=== PATIENT | male | born 1980 | race Caucasian/White ===

== ENCOUNTER 2024-11-30 16:54 | Emergency (ER) | payer MEDICARE, MEDICAID, SELFPAY ==
[2024-11-30 16:57] VITALS: BP 148/103; PULSE 88; TEMP 36.6; O2SAT 97; BMI 55.9
--- NOTE | 2024-11-30 17:00 | XR_ITS ---
The [address] [address] Patient Name: ORACIO MARIE MRN: [id number] date: 1980 Sex: M Assigned Patient Location: ER Current Patient Location: Accession/Order Number: [id number] Exam Date: 11/30/2024 17:55 Report Date: 11/30/2024 18:53 At the request of: LETTY PARIKH Procedure: XR hand RT min 3V EXAM: XR hand RT min 3V, XR wrist RT min 3V HISTORY: pain to right hand and 4th digit COMPARISON: None. TECHNIQUE: 3 views of right hand and wrist FINDINGS: There is no acute fracture or dislocation. The soft tissue is unremarkable. XR/XR hand RT min 3V IMPRESSION: No acute fracture. Electronically authenticated by: EDWIN WILKES Date: 11/30/2024 18:53
--- NOTE | 2024-11-30 17:00 | XR_ITS ---
The [address] [address] Patient Name: ORACIO MARIE MRN: [id number] date: 1980 Sex: M Assigned Patient Location: ER Current Patient Location: Accession/Order Number: [id number] Exam Date: 11/30/2024 17:55 Report Date: 11/30/2024 18:53 At the request of: LETTY PARIKH Procedure: XR wrist RT min 3V EXAM: XR hand RT min 3V, XR wrist RT min 3V HISTORY: pain to right hand and 4th digit COMPARISON: None. TECHNIQUE: 3 views of right hand and wrist FINDINGS: There is no acute fracture or dislocation. The soft tissue is unremarkable. XR/XR wrist RT min 3V IMPRESSION: No acute fracture. Electronically authenticated by: EDWIN WILKES Date: 11/30/2024 18:53
--- NOTE | 2024-11-30 17:01 | ED_ITS ---
HPI HPI - Extremity Injury (Upper) General Chief Complaint: Extremity Injury, Upper Stated Complaint: UPPER EXTEMITY INJURY Time Seen by Provider: 11/30/24 16:54 Source: patient Mode of arrival: walk-in History of Present Illness HPI narrative: 44-year-old male presents to the ER with concerns of right hand and wrist pain. Patient states yesterday he was walking and slipped on ice dropping onto his right hand jamming his right ring finger and injuring his right wrist. He denies any prior injury to the wrist or hand and has remote scars on the dorsal aspect. Patient has been icing and taking Motrin with minimal to no relief. He denies any head or neck injury. Patient states he bumped his left elbow and ankle but it is not bothering him as much today and his main concern is the right wrist and hand. Patient is right-hand dominant. MD complaint: injury to: Reports right Other Extremity Injury: Right: fingers, hand and wrist Other injuries: Reports none Hand dominance: right Place: Reports home Severity: moderate Relieving factors: Reports none Exacerbating factors: Reports none Context: Reports fall Associated symptoms: Reports denies other symptoms Related Data Previous Rx's ?Medication ?Instructions ?Recorded ibuprofen 600 mg tablet 600 mg PO TID PRN pain #30 tabs 11/30/24 Allergies Allergy/AdvReac Type Severity Reaction Status Date / Time amoxicillin Allergy Severe Hives Verified 11/30/24 17:01 clindamycin Allergy Severe resp Verified 11/30/24 17:01 failure Opioid HPI Opioid Management Most Recent Pain and Opioid Data: No Data to Display Review of Systems ROS Constitutional Denies: fever or chills Eyes Denies: change in vision Ears, nose, mouth, and throat Denies: throat pain, neck pain or throat swelling Cardiovascular Denies: chest pain, palpitations or edema Respiratory Denies: shortness of breath or cough Gastrointestinal Denies: abdominal pain or nausea Musculoskeletal Reports: back pain (Chronic from many years ago per patient) and extremity pain (New onset right wrist and hand since fall yesterday) Integumentary/Breast Denies: rash or itching Neurological Denies: headache Psychiatric Denies: anxiety PFSH PFSH Social History Little interest or pleasure in doing things: not at all Feeling down, depressed, or hopeless: not at all Exam Narrative Exam Narrative: Nurse's notes and vital signs reviewed. Patient is not hypoxic. General: The patient appears well and in no apparent distress. Patient is resting comfortably on cart. Skin: Warm, dry, no pallor noted. Remote scars to the dorsal wrist from remote injury denies prior surgery Head: Normocephalic, atraumatic Eye: Normal conjunctiva Respiratory: Patient is in no distress Musculoskeletal: The right wrist shows no obvious deformity. There was minimal swelling noted by ulnar styloid. The patient had limited ROM due to pain. Involving the right wrist and the right middle finger no evidence of tendon disruption but limited motion seconda ry to pain patient demonstrates gentle flexion extension of the DIP PIP and MCP joint but is unable to close his hand into a fist The patient had tenderness noted distal radius and ring finger. The patient had no tenderness in the anatomical snuff box. The patient had no pain with axial loading of the thumb. Pulses are intact at brachial and radial 2+. There was no deficit at the elbow or shoulder. The patient has normal capillary refill to all distal digits. The patient has no evidence of cyanosis or mottling. The patient is able to flex and extend all digits without difficulty. No pain with syndesmotic compression of the forearm Neurological: A&O x4, normal sensory, normal motor Psychiatric: Cooperative Constitutional Vital Signs, click to edit/add: Last Vital Signs Temp 97.9 F 11/30/24 16:57 Pulse 88 11/30/24 16:57 Resp 11/30/24 16:57 BP 140/81 11/30/24 18:08 Pulse Ox 97 11/30/24 16:57 O2 Del Method Room Air 11/30/24 16:57 Course Vital Signs Vital signs: Vital Signs Temperature 97.9 F 11/30/24 16:57 Pulse Rate 88 11/30/24 16:57 Respiratory Rate 11/30/24 16:57 Blood Pressure 148/103 H 11/30/24 16:57 Pulse Oximetry 97 11/30/24 16:57 Oxygen Delivery Method Room Air 11/30/24 16:57 Temperature 97.9 F 11/30/24 16:57 Pulse Rate 88 11/30/24 16:57 Respiratory Rate 20 11/30/24 16:57 Blood Pressure 140/81 11/30/24 18:08 Pulse Oximetry 97 11/30/24 16:57 Oxygen Delivery Method Room Air 11/30/24 16:57 MDM - Extremity Injury (Upper) MDM Narrative Medical decision making narrative: Presents with right wrist hand and right ring finger injury status post fall yesterday ice pack applied on arrival no obvious deformity he appears in no significant distress he took Motrin prior to arrival is given a dose of Tylenol here awaiting x-ray studies.. 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 We have recommended a Velcro wrist brace ice and elevation Motrin for inflammation. Blood pressure was rechecked and improved. He is encouraged to follow-up with orthopedics given the arthritic changes in his wrist and injury concerning for wrist sprain and right ring finger sprain patient verbalized understanding The patient is to followup with primary care physician/ orthopedics in next 2-3 days or to return to the emergency department should any of the signs or symptoms worsen or new symptoms develop. Patient had questions answered. The patient agrees with the following Diagnosis and Treatment plan and the patient will be discharged home. Discharge Plan Discharge Chief Complaint: Extremity Injury, Upper Clinical Impression: Acute pain of right wrist, Right wrist sprain, Finger sprain Patient Disposition: Home, Self-Care Time of Disposition Decision: 18:06 Condition: Good Prescriptions / Home Meds: New ibuprofen 600 mg tablet 600 mg PO TID PRN (Reason: pain) Qty: 30 0RF Print Language: New Zealander Instructions: Jammed Finger (ED), Wrist Sprain (ED) Additional Instructions: Recommend Brace, remove to ice and shower. avoid lifting with Right hand Call Dr. Barfield Sunday for follow up. Referrals: Physician,Non-Staff, [Primary Care Provider] - 1 week Colin Barfield MD [Physician] - 1 week Procedures ED Ortho Splinting/Casting Orthopedic Splinting/Casting right wrist: Side: right Splint type: Splint arm short Upper extremity injury location: wrist (right velcro cock up splint) Upper extremity immobilizer: wrist splint Additional comments: neurovasc intact s/p application:
[2024-11-30] MEDS: ACETAMINOPHEN 500 MG TABLET 1000 MG PO (17:11)
[2024-11-30 18:08] VITALS: BP 140/81
== END 2024-11-30 18:15 | disposition home or self-care (01) ==
PROVIDERS: Emergency Provider Emergency Medicine; PCP Student in an Organized Health Care Education/Training Program
DX: S63.501A Unspecified sprain of right wrist, initial encounter (principal); S63.612A Unspecified sprain of right middle finger, initial encounter; W00.0XXA Fall on same level due to ice and snow, initial encounter; M25.531 Pain in right wrist
CPT/HCPCS: 29125; 73110; 73130; 99283

== ENCOUNTER 2025-04-20 17:32 | Emergency (ER) | payer MEDICARE, MEDICAID, SELFPAY ==
--- OUTSIDE RECORDS SUMMARY | 2025-04-20 17:39 | XMS_ITS | Encounter Summary ---
Author Organization [facility] tem Address [facility] [id number] [address] [place] [address] Care Team Providers Care Cdl Service Technician Name Role Phone Lori Toscano MD Primary Care Provider [phone] Encounter Details Date Type Department Care Team (Late st Contact Info) Description 12/17/2023 Telephone [facility] Family Medicine [address] [place] [phone] Allie Davis CMA Social History Tobacco Use Types Packs/Day Years Used Date Smoking Tobacco: Former Cigarettes Smokeless Tobacco: Current Chew Comments:Nicotine pouches Alcohol Use Standard Drinks/Week Comments Yes 0 (1 standard drink = 0.6 oz pur e alcohol) rarely Overall Financial Resource Strain (CARDIA) Answe r Date Recorded How hard is it for you to pa y for the very basics like food, housing, medical care, and heating? Somewhat hard 09/24/2023 PHQ-2 Answer Date Recorded Total Score 1 09/24/2023 PRAPARE - Transportation Answer Date Re corded In the past 12 months, has l ack of transportation kept you from medical appointments or from getting medications? Patient declined 09/24/2023 In the past 12 months, has l ack of transportation kept you from meetings, work, or from getting things needed for daily living? Patient declined 09/24/2023 Housing Instability Answer Date Recorde d Are you worried or concerned that in the next two months you may not have stable housing that you own, rent or stay in as a part of a household? No 09/24/2023 Childcare Answer Date Recorded Childcare Unknown 06/28/2020 Employment Answer Date Recorded Employment Unknown 06/28/2020 Hunger Screening Answer Date Recorded Within the past 12 months we worried whether our food would run out before we got money to buy more. Never True 12/08/2023 Within the past 12 months th e food we bought just didn't last and we didn't have money to get more. Never True 12/08/2023 Purpose - Life Answer Date Recorded Purpose and direction in life Unknown Sex and Gender Information Value Date Recorded Sex Assigned at Not on file Legal Sex Male 7:56 PM EDT Gender Identity Not on file Sexual Orientation Not on file documented as of this encounter Miscellaneous Notes * Telephone Encounter - Allie Davis CMA - 12/17/2023 3:28 PM [facility]. Original referral was written for PAULA only with history of asthma. Patient called into sleep and had told them that he was to see them for his asthma as well. new referral order be placed with diagnosis for PAULA and Asthma for patient if applicable. [facility]. Please advise * Telephone Encounter - Lori Toscano MD - 12/17/2023 3:28 PM EST Rx/order sent to pharmacy Please call and notify patient. Thanks, LORI TOSCANO MD 12/18/23 * Telephone Encounter - Allie Davis CMA - 12/17/2023 3:28 PM EST Patient was called and notified. At time of notification patient requested new order for his handicapped placard. Stated his is about to and pain management will not write a new one. Please advise. * Telephone Encounter - Lori Toscano MD - 12/17/2023 3:28 PM EST Rx/order placed Please call and notify patient. Thanks, LORI TOSCANO MD 12/20/23 * Telephone Encounter - Allie Davis CMA - 12/17/2023 3:28 PM EST Patient was called and notified and will chicken picker documented in this encounter Plan of Treatment Upcoming Encounters Date Type Department Care Team (Late st Contact Info) Description 06/24/2025 1:30 PM EDT Office Visit [facility] [address] [place] [id number] Julissa Macias, HOMICIDE INVESTIGATOR-SERVER ADMINISTRATOR [address] [facility], [place] [id number] documented as of this encounter Visit Diagnoses Not on filedocumented in this encounter Additional Health Concerns Assessment Noted Time PHQ-9 Depression Total Score: 1 09/24/20 23 1:34 PM EST documented as of this encounter Care Teams Cdl Service Technician Relationship Specialty Start Date End Date Lori Toscano MD [address] [address] PCP - General Internal Medicine 10/13/22 documented as of this encounter
--- OUTSIDE RECORDS SUMMARY | 2025-04-20 17:39 | XMS_ITS | Encounter Summary ---
[facility] tem Address [facility] [id number] [address] [place] [address] Care Team Providers Care Civil Drafting Technician Name Role Phone Lori Lyles MD Primary Care Provider [phone] Encounter Details Date Type Department Care Team (Late Contact Info) Description 03/16/2023 Telephone [facility] [address] [place] [phone] Lori Lyles MD [address] [facility] [address] [place], [place] [phone] Social History Tobacco Use Types Packs/Day Years Used Date Smoking Tobacco: Former Cigarettes Smokeless Tobacco: Current Chew Alcohol Use Standard Drinks/Week Comments Yes 0 (1 standard drink = 0.6 oz pur e alcohol) rarely PHQ-2 Answer Date Recorded Total Score 0 11/16/2022 Childcare Answer Date Recorded Childcare Unknown 06/28/2020 Employment Answer Date Recorded Employment Unknown 06/28/2020 Purpose - Life Answer Date Recorded Purpose and direction in life Unknown Sex and Gender Information Value Date Recorded Sex Assigned at Not on file Legal Sex Male 7:56 PM EDT Gender Identity Not on file Sexual Orientation Not on file documented as of this encounter Plan of Treatment Upcoming Encounters Date Type Department Care Team (Late st Contact Info) Description 06/24/2025 1:30 PM EDT Office Visit [facility] [address] [place] [phone] Julissa Macias, APPLICATOR SPRAYER-RUBBER THREAD SPOOLER [address] [facility], [address] [place] [address] documented as of this encounter Visit Diagnoses Not on filedocumented in this encounter Additional Health Concerns Assessment Noted Time PHQ-9 Depression Total Score: 0 11/16/19 23 10:12 AM EST documented as of this encounter Care Teams Civil Drafting Technician Relationship Specialty Start Date End Date Lori Lyles MD [address] [facility], [facility] [place] [address] PCP - General Internal Medicine 10/13/22 documented as of this encounter
--- OUTSIDE RECORDS SUMMARY | 2025-04-20 17:39 | XMS_ITS | Clinical Summary ---
Author Organization [facility] Address [address] [place] [address] Care Team Providers Care Chrome Worker Name Role Phone Jennifer Reaves CNP Primary Care Provider Emery Cook MD Unavailable [phone] Social History Tobacco Use Types Packs/Day Years Used Date Smoking Tobacco: Never Assessed Area Deprivation Index Answer Date Mansoor rded National Score (1-100), lower number is lower ri sk Not on file 07/01/2021 State Score (1-10), lower number is lower risk N ot on file 07/01/2021 Data from: https://www.neighborhoodatlas.medicine.[facility]/. Last address used for calculation Not on file 07/01/2021 Sex and Gender Information Value Date Recorded Sex Assigned at Not on file Legal Sex Male 8:07 AM EDT Gender Identity Not on file Sexual Orientation Not on file Last Filed Vital Signs Vital Sign Reading Time Taken Comments Blood Pressure - - Pulse - - Temperature - - Respiratory Rate - - Oxygen Saturation - - Inhaled Oxygen Concentration - - Weight 213.2 kg (470 lb) 02/09/2015 2:24 PM EDT Height 182.9 cm (6') 02/09/2015 2:24 PM EDT Body Mass Index 63.74 02/09/2015 2:24 PM EDT Plan of Treatment Health Maintenance Due Date Last Done Comments Anxiety Screening 1998 Depression Screening 1998 HIV Screening 1998 Hepatitis C Screening 1998 DTaP,Tdap,Td Vaccine (1 - Tdap) 1999 Hepatitis B Vaccine (1 of 3 - 19+ 3-dose series) 10/24 Lipid Screening 2015 Covid-19 Vaccine (2023-25 season) 2024 Influenza Vaccine (Season Ended) [address] [place] [address] MEDICARE MEDICAID [place] Care Teams Chrome Worker Relationship Specialty Start Date End Date Jennifer Reaves CNP PCP - General Family Medicine 01/30/15 Emery Cook MD [address] [place] [address] Referring Pain Management 06/02/21
--- OUTSIDE RECORDS SUMMARY | 2025-04-20 17:39 | XMS_ITS | Encounter Summary ---
Author Organization [facility] tem Address [facility] [id number] [address] [place] [address] Care Team Providers Care Back Padder Name Role Phone Lori Lyles MD Primary Care Provider [phone] Encounter Details Date Type Department Care Team (Late st Contact Info) Description 03/11/2025 Telephone [facility] [address] [place] [phone] Laurie Raya, [facility] Social History Tobacco Use Types Packs/Day Years [...] PHQ-2 Answer Date Recorded Total Score 1 02/24/2025 PRAPARE - Transportation Answer Date Re corded [...] got money to buy more. Never True 02/24/2025 Within the past 12 months th e food we bought just didn't last and we didn't have money to get more. Never True 02/24/2025 Purpose - Life Answer Date Recorded Purpose and direction in life Unknown Sex and Gender Information Value Date Recorded Sex Assigned at Not on file Legal Sex Male 7:56 PM EDT Gender Identity Not on file Sexual Orientation Not on file documented as of this encounter Miscellaneous Notes * Telephone Encounter - Laurie Raya CMA - 03/11/2025 11:45 AM EDT Patient is scheduled for appointment 06/24/25. CXR and PFT , please place new orders. documented in this encounter Plan of Treatment Upcoming Encounters Date Type Department Care Team (Late st Contact Info) Description 06/24/2025 1:30 PM EDT Office Visit [facility] [address] [place] [address] Julissa Macias, SUPPLIER ENGINEER-TIER LIFT OPERATOR [facility] [facility], [address] [place] [address] Scheduled Orders Name Type Priority Associated Diagnoses Orde r Schedule X-ray chest 2 views Imaging Routine Airway obstruction Expected: 04/15/2025, Expires: 03/11/2026 Pulmonary function test Spirometry (Flow Volume Loop) pre/post short acting bronchodilator w/ DLCO (diffusion study) PFT Routine Airway obstruction 1 Occurrences starting 03/11/2025 until 03/11/2026 documented as of this encounter Visit Diagnoses Diagnosis Airway obstruction- Primary Other diseases of respiratory system, not elsewhere classified documented in this encounter Additional Health Concerns Assessment Noted Time PHQ-9 Depression Total Score: 1 02/25/20 1:00 PM EDT documented as of this encounter Care Teams Back Padder Relationship Specialty Start Date End Date Lori Lyles MD [address] [place] [address] PCP - General Internal Medicine 10/13/22 documented as of this encounter
--- OUTSIDE RECORDS SUMMARY | 2025-04-20 17:39 | XMS_ITS | Encounter Summary ---
Author Organization [facility] tem Address [facility] [id number] [address] [place] [address] Care Team Providers Care Construction Craft Laborer Name Role Phone Lori Lyles MD Primary Care Provider [phone] Encounter Details Date Type Department Care Team (Late st Contact Info) Description 07/16/2024 Telephone [facility] Family Medicine [address] [place] [address] [place] [phone] Tanya Leiva CMA Social History Tobacco Use Types Packs/Day [...] encounter Miscellaneous Notes * Telephone Encounter - Tanya Leiva CMA - 07/16/2024 11:05 AM EDT Patient called into the office and stated that yesterday his symptoms started and tested positive for COVID he is having congestion and sore throat, he has used his inhaler more today than he has ever done just to protect his lungs. * Telephone Encounter - Deirdre Natarajan - 07/16/2024 11:05 AM EDT Patient called back a moment ago to let PCP know he is going to urgent care documented in this encounter Plan of Treatment Upcoming Encounters Date Type Department Care Team (Late st Contact Info) Description 06/24/2025 1:30 PM EDT Office Visit [facility] [address] [facility] [place] [address] Julissa Macias, BOILERS [employer] PRESSURE VESSELS INSPECTOR-ATOMIC PHYSICS TEACHER [address] [facility], [address] [place] [address] documented as of this encounter Visit Diagnoses Not on filedocumented in this encounter Additional Health Concerns Assessment Noted Time PHQ-9 Depression Total Score: 1 09/24/20 23 1:34 PM EST documented as of this encounter Care Teams Construction Craft Laborer Relationship Specialty Start Date End Date Lori Lyles MD [address] [place] [address] PCP - General Internal Medicine 10/13/22 documented as of this encounter
--- OUTSIDE RECORDS SUMMARY | 2025-04-20 17:39 | XMS_ITS | Patient Health Record ---
Author Organization [facility] es Address [address] [place] [address] Care Team Providers Care Instructional Technologist Name Role Phone Doyle Melo Primary Care Provider [phone] Allergies Allergen (clinical drug ingredient) Drug/Non Drug Allergy documented on EMR Reaction Allergy Type Onset Date Status amoxicillin Amoxicillin HIVES Drug Allergy Act shira clindamycin Clindamycin HCl Unknown Drug Allergy Active Reason For Referral No Information Medications Medication SIG (Take, Route, Frequency, Duration) Notes Start Date End Date Status Omeprazole 40 MG 1 capsule Orally Once a day for 30 day(s) 05/07/2015 Active FLUoxetine HCl 20 MG 1 capsule in the morning Orally Once a day for 30 day(s) 08/01/2017 Active Symbicort 160-4.5 MCG/ACT 2 puffs Inhalation Twice a day Not-Taking Flonase 50 MCG/ACT 1 spray Nasally Once a day for 30 day(s) 01/16/2011 Not-Taking Ipratropium [place] 0.02 % Inhalation Active Xanax 0.5 MG 1 tablet Orally Twice a day Active Requip 1 MG 1 tablet 1 to 3 hours before bedtime Orally Once a day Active dulera 100/5 2 puff INH twice a day 02/28/17 takes 1 puff four times a day Active Singulair 10 MG 1 tablet in the evening Orally Once a day for 30 day(s) Active Albuterol Sulfate HFA Inhalation Active Lisinopril 10 MG take 1 tablet by mouth once daily for 30 Active Problems Problem Type SNOMED Code ICD Code Onset Dates Problem Status W/U Status Risk Notes Problem Morbid obesity (204965998) Morbid obesity (278.01) Active confirmed Problem Allergic rhinitis (61369782) Allergic rhinitis, cause unspecified (477.9) Active confirmed Problem Esophageal reflux (095068880) Esophageal reflux (530.81) Active confirmed Problem Primary localized osteoarthrosis of ankle AND/OR foot (091844287) Primary localized osteoarthrosis, lower leg (715.16) Active confirmed Problem Injury of lower extremity (036755946) Injury, other and unspecified, knee, leg, ankle, and foot (959.7) Active confirmed Problem Morbid obesity (572593623) Morbid (severe) obesity due to excess calories (E66.01) Active confirmed Problem 80093261 HTN (hypertension) (I10) Active confirmed Plan Of Treatment No Information Insurance Providers Payer Name Payer Address Payer Phone Subscriber Number Group Number Insured Name Patient Relationship to Insured Coverage Start Date Coverage End Date z[employer] -termed [address] [place] [address] [id number] ORACIO MARIE Self - patient is the insured zMEDICAID [employer] after [employer]- termed 22 [address] [place] [address] [id number] ORACIO MARIE Self - patient is the insured Medical (General) History Medical History History ICD Code ASTHMA TOBACCO ABUSE OBESITY CHRONIC BACK PAIN PAULA/BIPAP resp.faure
--- OUTSIDE RECORDS SUMMARY | 2025-04-20 17:39 | XMS_ITS | Clinical Summary ---
Author Organization [facility] Address [address] [place] [address] Care Team Providers Care Barrel Lapper Name Role Phone Unavailable Primary Care Provider Unavailabl e Social History Tobacco Use Types Packs/Day Years Used Date Smoking Tobacco: Never Assessed Sex and Gender Information Value Date Recorded Sex Assigned at Not on file Legal Sex Male 9:35 PM EDT Gender Identity Not on file Sexual Orientation Not on file Last Filed Vital Signs Vital Sign Reading Time Taken Comments Blood Pressure 148/79 05/18/2022 12:00 PM EDT Pulse - - Temperature - - Respiratory Rate - - Oxygen Saturation - - Inhaled Oxygen Concentration - - Weight 235 kg (517 lb) 05/18/2022 12:00 PM EDT Height 177.8 cm (5' 10 ) 05/18/2022 12:00 PM EDT Body Mass Index 74.18 05/18/2022 12:00 PM EDT Plan of Treatment Health Maintenance Due Date Last Done Comments Influenza Vaccine (Season Ended) 2025 Insurance MEDICARE
--- OUTSIDE RECORDS SUMMARY | 2025-04-20 17:40 | XMS_ITS | Clinical Summary ---
Author Organization [facility] tem Address [id number] [address] [place] [address] Care Team Providers Care Ramp Supervisor Name Role Phone Lori Lyles MD Primary Care Provider [phone] Allergies Active Allergy Reactions Criticality Noted Date Comments Amoxicillin Hives 06/28/2020 Clindamycin Anaphylaxis High 06/28/2020 Penicillins Hives 06/28/2020 Medications albuterol (ACCUNEB) 1.25 mg/3 mL nebulizer solution Inhale 3 mL (1.25 mg total) by nebulization every 6 (six) hours as needed for wheezing. Active cetirizine (ZyrTEC) 10 mg tablet Take 1 tablet (10 mg total) by mouth in the morning. Active pen needle, diabetic 32 gauge x needleIndication s:Type 2 diabetes mellitus with other specified complication, without long-term current use of insulin ([facility]) 1 each by miscellaneous route once a week. 10 each 2 023 Active pen needle, diabetic 32 gauge x 5/16 needleIndication s:Controlled type 2 diabetes mellitus without complication, without long-term current use of insulin ([facility]) Use once per week with wegovy injection 10 each 2 023 Active ipratropium (ATROVENT) 0.02 % nebulizer solution 4 (four) times a day. 023 Active pregabalin (LYRICA) 75 mg capsuleIndicatio ns:Lumbar spondylosis Take 1 capsule (75 mg total) by mouth in the morning and 1 capsule (75 mg total) before bedtime. 60 capsule 1 023 Active flash glucose sensor (FREESTYLE TAJ 2 SENSOR) kitIndications:T ype 2 diabetes mellitus with other specified complication, without long-term current use of insulin ([facility]) Replace every 2 weeks 2 kit 11 023 Active flash glucose scanning reader (FREESTYLE TAJ 2 READER) miscIndications: Type 2 diabetes mellitus with other specified complication, without long-term current use of insulin ([facility]) Check sugar every 8 hours, use with sensor. 1 each 023 Active ondansetron ODT (ZOFRAN ODT) 4 mg disintegrating tabletIndication s:Nausea DISSOLVE 1 TABLET ON THE TONGUE EVERY 8 HOURS NEEDED FOR NAUSEA OR VOMITING 20 tablet 024 Active topiramate (TOPAMAX) 50 mg tabletIndication s:BMI 60.0-69.9, adult ([facility]) TAKE 1 TABLET BY MOUTH IN THE MORNING AND 1 TABLET BY MOUTH BEFORE BEDTIME 200 tablet 2 024 Active nystatin (NYSTOP) powderIndication s:Candidal dermatitis Apply topically 2 (two) times a day. 60 g 1 024 Active atorvastatin (LIPITOR) 40 mg tabletIndication s:ASCVD (arterioscleroti c cardiovascular disease) TAKE 1 TABLET BY MOUTH IN THE MORNING 100 tablet 2 024 Active JANUVIA 50 mg tabletIndication s:Controlled type 2 diabetes mellitus without complication, without long-term current use of insulin ([facility]) TAKE 1 TABLET BY MOUTH ONCE DAILY 100 tablet 2 024 Active lisinopriL (PRINIVIL,ZESTRI L) 20 mg tabletIndication s:Type 2 diabetes mellitus with other specified complication, without long-term current use of insulin ([facility]),Second pee hypertension TAKE 1 TABLET BY MOUTH IN THE MORNING FOR KIDNEY DISEASE FROM DIABETES 100 tablet 2 024 Active OZEMPIC 1 mg/dose (4 mg/3 mL) pen injector INJECT SUBCUTANEOUSLY 1 MG EVERY WEEK 9 mL 3 025 Active ibuprofen (MOTRIN) 800 mg tablet Take 1 tablet (800 mg total) by mouth 3 (three) times a day. 21 tablet 025 Active acetaminophen (TYLENOL EXTRA STRENGTH) 500 mg tablet Take 1 tablet (500 mg total) by mouth every 6 (six) hours as needed for pain. 30 tablet 025 Active cyclobenzaprine (FLEXERIL) 10 mg tablet Take 1 tablet (10 mg total) by mouth 2 (two) times a day as needed for muscle spasms. 10 tablet 025 Active fluticasone propion-salmeter oL (ADVAIR) 500-50 mcg/dose DISKUS INHALE 1 INHALATION BY MOUTH IN THE MORNING AND 1 INHALATION BY MOUTH BEFORE BEDTIME 180 each 3 025 Active semaglutide (OZEMPIC) 2 mg/dose (8 mg/3 mL) pen injectorIndicati ons:Type 2 diabetes mellitus with other specified complication, without long-term current use of insulin ([facility]),Obesit y, morbid, BMI 50 or higher ([facility]),PAULA (obstructive sleep apnea) Inject 2 mg under the skin every 7 days. 3 mL 10 025 Active blood-glucose sensor (FREESTYLE TAJ 3 SENSOR) deviceIndication s:Type 2 diabetes mellitus with other specified complication, without long-term current use of insulin ([facility]) REPLACE EVERY 14 DAYS 5 each 5 025 Active predniSONE (DELTASONE) 20 mg tabletIndication s:Moderate persistent reactive airway disease with acute exacerbation 3 daily for 3 days then 2 daily for 3 days then 1 daily for 3 days 18 tablet 025 Active mometasone (ASMANEX) 220 mcg/ actuation (30) aerosol powdr breath activated Inhale 1 puff in the morning and 1 puff before bedtime. 1 each 11 025 Active triamcinolone (KENALOG) 0.1 % cream Apply 1 Application topically in the morning and 1 Application before bedtime. 60 g 1 025 Active albuterol (PROVENTIL HFA;VENTOLIN HFA) 90 mcg/actuation inhalerIndicatio ns:Moderate persistent reactive airway disease with acute exacerbation USE 2 INHALATIONS BY MOUTH EVERY 6 HOURS NEEDED FOR WHEEZING 34 g 2 025 Active albuterol (PROVENTIL HFA;VENTOLIN HFA) 90 mcg/actuation inhalerIndicatio ns:Moderate persistent reactive airway disease with acute exacerbation Inhale 2 puffs every 6 (six) hours as needed for wheezing. 25.5 g 11 024 2024 Discontinued triamcinolone (KENALOG) 0.1 % cream Apply 1 Application topically in the morning and 1 Application before bedtime. 60 g 1 024 2024 Discontinued(R eorder) Active Problems Problem Noted Date Diagnosed Date Type 2 diabetes mellitus wit h other specified complication, without long-term current use of insulin 02/24/2025 Lumbar spondylosis 07/11/2023 Disorder of sacrum 07/11/2023 BMI 50.0-59.9, adult 03/13/2023 Controlled type 2 diabetes m ellitus without complication, without long-term current use of insulin 01/16/2023 Pain in wrist 01/16/2023 Encounters Date Type Department Care Team Description 04/18/2025 Refill [facility] [address] [phone] Julissa Macias, GALLEY HAND-GROCERY SACKER Moderate persistent reactive airway disease with acute exacerbation 04/13/2025 Orders Only [facility] [address] [phone] Lori Lyles MD 04/07/2025 Telephone [facility] [address] [place] [phone] Ruth Reina CNA Medication 03/19/2025 Orders Only [facility] [address] [phone] Lori Lyles MD Moderate persistent reactive airway disease with acute exacerbation 03/16/2025 Telephone [facility] [address] [phone] Ruth Reina CNA 03/13/2025 11:30 AM EDT Telemedicine [facility] [address] [place] [phone] Lori Lyles MD Moderate persistent reactive airway disease with acute exacerbation (Primary Dx); PAULA (obstructive sleep apnea); Moderate persistent asthma with exacerbation 03/13/2025 Travel 03/11/2025 Telephone [facility] [address] [place] [address] Lori Lyles MD 03/11/2025 Orders Only [facility] [address] [place] [phone] Tomas Lockwood, DO 03/11/2025 Telephone [facility] [address] [place] [phone] Laurie Raya, [facility] 03/10/2025 Telephone [facility] [address] [place] [address] Ruth Reina, FLOOR FINISHER 02/27/2025 Telephone [facility] [address] [place] [address] [place] [address] Shazia Persaud, [facility] 02/24/2025 2:00 PM EDT Office Visit [facility] [address] [place] [address] [place] [address] Lori Lyles MD Type 2 diabetes mellitus with other specified complication, without long-term current use of insulin ([facility]) (Primary Dx); Obesity, morbid, BMI 50 or higher ([facility]); PAULA (obstructive sleep apnea); Controlled type 2 diabetes mellitus without complication, without long-term current use of insulin ([facility]) 02/24/2025 Travel from Last 3 Months Immunizations Immunization Administration Dates Next Due COVID-19, mRNA, LNP-S, PF, 30mcg/0.3mL Dose 03/13,03/12/2021 Influenza (IM) Preservative Free 11/27/2018 Influenza, Injectable, Quadrivalent 12/09/2019 Influenza, Injectable, quadrivalent (PF) 023,01/16/2023 Tdap 12/09/2019 Family History Medical History Relation Name Comments Alcohol abuse Father Cirrhosis Father Liver disease Father Pulmonary embolism Father Arthritis Maternal Aunt Alcohol abuse Maternal Grandmother Arthritis Maternal Grandmother Heart attack Maternal Grandmother Heart disease Maternal Grandmother [place]'s disease Maternal Grandmother Arthritis Maternal Uncle Alcohol abuse Mother Asthma Mother Diabetes Paternal Grandfather Asthma Son Bipolar disorder Son Relation Name Status Comments Father Maternal Aunt Maternal Grandmother Maternal Uncle Mother Paternal Grandfather Son Social History Tobacco Use Types Packs/Day Years [...] Sign Reading Time Taken Comments Blood Pressure 142/88 02/24/2025 2:13 PM EDT Pulse 94 02/24/2025 2:13 PM EDT Temperature 37 C (98.6 F) 02/24/2025 2:13 PM EDT Respiratory Rate 20 12/09/2024 10:3 3 PM EST Oxygen Saturation 98% 02/24/2025 2:13 PM EDT Inhaled Oxygen Concentration - - Weight 201.7 kg (444 lb 9.6 oz) 02/24/2025 2:13 PM EDT Height 182.9 cm (6') 02/24/2025 2:13 PM EDT Body Mass Index 60.3 02/24/2025 2:13 PM EDT Plan of Treatment Upcoming Encounters Date Type Department Care Team (Late st Contact Info) Description 06/24/2025 1:30 PM EDT Office Visit [facility] [address] [place] [phone] Julissa Macias, GALLEY HAND-GROCERY SACKER [address] [facility], [address] [place] [id number] Health Maintenance Due Date Last Done Comments Diabetic Ophthalmology Exam 1980 Tobacco Counseling 1980 Adult BMI Follow Up Plan 1998 Diabetic Foot Exam 1998 COVID-19 Vaccine (2023-2 5 season) 2024 04/02/2021, 03/12/2021 Influenza Vaccine 07/13/2025 08/21/2023, , 12/09/2019, Additional history exists Adult BMI Screening 02/24/2026 02/24/2025 Depression Screening 02/24/2026 02/24/2025 Tobacco Screening 03/13/2026 03/13/2025 DTaP,Tdap and Td Vaccines (2 - Td or Tdap) 12/09/2029 12/09/2019 Medical Devices Not on file Insurance MEDICAID [place] [employer] MEDICARE Care Teams Ramp Supervisor Relationship Specialty Start Date End Date Lori Lyles MD [address] [facility] [place] [address] PCP - General Internal Medicine 10/13/22
--- OUTSIDE RECORDS SUMMARY | 2025-04-20 17:40 | XMS_ITS | Encounter Summary ---
Author Organization [facility] tem Address [id number] [address] [place] [address] Care Team Providers Care Slate Mixer Name Role Phone Lori Lyles MD Primary Care Provider [phone] Encounter Details Date Type Department Care Team (Late st Contact Info) Description 06/08/2023 Telephone [facility] [address] [place] [address] [phone] Tanya Leiva CMA Social History Tobacco Use [...] Telephone Encounter - Tanya Leiva CMA - 06/08/2023 12:37 PM EDT Tried to call patient need to schedule for medicare annual wellness documented in this encounter Plan of Treatment Upcoming Encounters Date Type Department Care Team (Late st Contact Info) Description 06/24/2025 1:30 PM EDT Office Visit [facility] [address] [place] [phone] Julissa Macias, SILK OPENER-GOODYEAR STITCHER [address] [place] [address], [address] [place] [address] documented as of this encounter Visit Diagnoses Not on filedocumented in this encounter Additional Health Concerns Assessment Noted Time PHQ-9 Depression Total Score: 0 11/16/19 23 10:12 AM EST documented as of this encounter Care Teams Slate Mixer Relationship Specialty Start Date End Date Lori Lyles MD [address], [place] [phone] PCP - General Internal Medicine 10/13/22 documented as of this encounter
--- OUTSIDE RECORDS SUMMARY | 2025-04-20 17:40 | XMS_ITS | Encounter Summary ---
Author Organization [facility] tem Address [id number] [address] [place] [address] Care Team Providers Care Motion Picture Operator Name Role Phone Lori Toscano MD Primary Care Provider [phone] Encounter Details Date Type Department Care Team (Late st Contact Info) Description 03/16/2025 [facility] [address] [place] [address] [place] [phone] Ruth Reina CNA Social History Tobacco Use Types Packs/Day Years [...] encounter Miscellaneous Notes * Telephone Encounter - Ruth Reina CNA - 03/16/2025 1:40 PM EDT [facility]er was only for 14 doses would last 7 days. Pharmacy cannot order it. Pharmacy wants to change it to 60 dose inhaler to last 30 days. Please advise * Telephone Encounter - Lori Toscano MD - 03/16/2025 1:40 PM EDT Order/Rx placed. Please call and notify patient. Thanks, LORI TOSCANO MD 03/19/25 documented in this encounter Plan of Treatment Upcoming Encounters Date Type Department Care Team (Late st Contact Info) Description 06/24/2025 1:30 PM EDT Office Visit [facility] [address] [place] [address] Julissa Macias, LITHOGRAPH PRESS FEEDER-LEAD LOADER [address] [facility], [address] [place] [address] documented as of this encounter Visit Diagnoses Not on filedocumented in this encounter Additional Health Concerns Assessment Noted Time PHQ-9 Depression Total Score: 1 02/25/20 25 1:00 PM EDT documented as of this encounter Care Teams Motion Picture Operator Relationship Specialty Start Date End Date Lori Toscano MD [address] [facility] [place] [address] PCP - General Internal Medicine 10/13/22 documented as of this encounter
--- OUTSIDE RECORDS SUMMARY | 2025-04-20 17:40 | XMS_ITS | Encounter Summary ---
Author Organization [facility] tem Address [id number] [address] [place] [address] Care Team Providers Care Foam Tank Laminator Name Role Phone Lori Lyles MD Primary Care Provider [phone] Reason for Visit * Reason Comments Med Refill Encounter Details Date Type Department Care Team (Late st Contact Info) Description 04/18/2025 Refill [facility] [address] [phone] Julissa Macias, INDUSTRIAL HEALTH ENGINEER-MEDICAL DRIVER [address] [address] Moderate persistent reactive airway disease with acute exacerbation Social History Tobacco Use Types Packs/Day Years [...] Office Visit [facility] [address] [address] Julissa Macias, INDUSTRIAL HEALTH ENGINEER-MEDICAL DRIVER [address] [place] [address], [place] [address] documented as of this encounter Visit Diagnoses Diagnosis Moderate persistent reactive airway disease with acute exacerbation documented in this encounter Additional Health Concerns Assessment Noted Time PHQ-9 Depression Total Score: 1 02/25/20 25 1:00 PM EDT documented as of this encounter Care Teams Foam Tank Laminator Relationship Specialty Start Date End Date Lori Lyles MD [address] [place] [address] PCP - General Internal Medicine 10/13/22 documented as of this encounter
--- OUTSIDE RECORDS SUMMARY | 2025-04-20 17:40 | XMS_ITS | Encounter Summary ---
Author Organization [facility] tem Address [id number] [address] [place] [address] Care Team Providers Care Promotions Executive Name Role Phone Lori Lyles MD Primary Care Provider [phone] Encounter Details Date Type Department Care Team (Late st Contact Info) Description 04/13/2025 Orders Only [facility] [address] [place] [address] [phone] Lori Lyles MD [address] [facility] [address] [place], [place] [phone] Social History Tobacco Use Types Packs/Day Years [...] Office Visit [facility] [address] [place] [address] Julissa Macias, CERTIFIED MARINE MECHANIC-STEEL FITTER [address] [place] [address], [address] [place] [phone] documented as of this encounter Visit Diagnoses Not on filedocumented in this encounter Additional Health Concerns Assessment Noted Time PHQ-9 Depression Total Score: 1 02/25/20 25 1:00 PM EDT documented as of this encounter Care Teams Promotions Executive Relationship Specialty Start Date End Date Lori Lyles MD [address] [place] [address] PCP - General Internal Medicine 10/13/22 documented as of this encounter
--- OUTSIDE RECORDS SUMMARY | 2025-04-20 17:40 | XMS_ITS | Encounter Summary ---
Author Organization [facility] tem Address [id number] [address] [place] [address] Care Team Providers Care Textile Colorist Dyer Name Role Phone Lori Toscano MD Primary Care Provider [phone] Reason for Visit * Reason Onset Date Comments Medication 04/07/2025 Encounter Details Date Type Department Care Team (Late st Contact Info) Description 04/07/2025 Telephone [facility] [address] [place] [address] [place] [phone] Ruth Reina CNA Medication Social History Tobacco Use Types Packs/Day Years [...] Telephone Encounter - Ruth Reina CNA - 04/07/2025 1:47 PM EDT Patient called office stating that he bought stickers like a bandage to place over his alem sensor. Patients states his arm almost has a rash and if you could all in some cream for patient. Patient states you had called it in for him before about this. Please advise * Telephone Encounter - Lori Toscano MD - 04/07/2025 1:47 PM EDT Order/Rx placed. For kenalog cream. Please call and notify patient. Thanks, LORI TOSCANO MD 04/13/25 * Telephone Encounter - Smitha Bloom CMA - 04/07/2025 1:47 PM EDT Called and informed patient. He stated understanding. documented in this encounter Plan of Treatment Upcoming Encounters Date Type Department Care Team (Late st Contact Info) Description 06/24/2025 1:30 PM EDT Office Visit [facility] [address] [place] [address] Julissa Macias, TREE WARDEN-BUFFET SERVER [address] [facility], [address] [place] [address] documented as of this encounter Visit Diagnoses Not on filedocumented in this encounter Additional Health Concerns Assessment Noted Time PHQ-9 Depression Total Score: 1 02/25/20 25 1:00 PM EDT documented as of this encounter Care Teams Textile Colorist Dyer Relationship Specialty Start Date End Date Lori Toscano MD [address] [facility] [place] [address] PCP - General Internal Medicine 10/13/22 documented as of this encounter
--- OUTSIDE RECORDS SUMMARY | 2025-04-20 17:40 | XMS_ITS | Encounter Summary ---
Author Organization [facility] tem Address [id number] [address] [place] [address] Care Team Providers Care Mitigation Supervisor Name Role Phone Lori Lyles MD Primary Care Provider [phone] Encounter Details Date Type Department Care Team (Late st Contact Info) Description 11/01/2023 Telephone [facility] [address] [place] [address] [phone] Allie Davis CMA Social History Tobacco Use [...] before we got money to buy more. Sometimes True 023 Within the past 12 months th e food we bought just didn't last and we didn't have money to get more. Sometimes True 09/24/2023 Purpose - Life Answer Date Recorded Purpose and direction in life Unknown Sex and Gender Information Value Date Recorded Sex Assigned at Not on file Legal Sex Male 7:56 PM EDT Gender Identity Not on file Sexual Orientation Not on file documented as of this encounter Miscellaneous Notes * Telephone Encounter - Allie Davis CMA - 11/01/2023 1:54 PM EST Patient is requesting inhaler refill (not in current medications) many are in the historical meds. Patient stated that any of the Pro Airs work the best. Please send to [facility] in [facility] * Telephone Encounter - Lori Lyles MD - 11/01/2023 1:54 PM EST No action needed, Thanks documented in this encounter Plan of Treatment Upcoming Encounters Date Type Department Care Team (Late st Contact Info) Description 06/24/2025 1:30 PM EDT Office Visit [facility] [address] [facility] [place] [address] Julissa Macias, ENGLISH AND READING INSTRUCTOR-GROUND CREWMAN AIRCRAFT SUPPORT [address] [facility], [address] [place] [address] documented as of this encounter Visit Diagnoses Not on filedocumented in this encounter Additional Health Concerns Assessment Noted Time PHQ-9 Depression Total Score: 1 09/24/20 23 1:34 PM EST documented as of this encounter Care Teams Mitigation Supervisor Relationship Specialty Start Date End Date Lori Lyels MD [address] [place] [address] PCP - General Internal Medicine 10/13/22 documented as of this encounter
--- OUTSIDE RECORDS SUMMARY | 2025-04-20 17:40 | XMS_ITS | Encounter Summary ---
Author Organization [facility] tem Address [id number] [address] [place] [address] Care Team Providers Care Svp Name Role Phone Lori Toscano MD Primary Care Provider [phone] Encounter Details Date Type Department Care Team (Late st Contact Info) Description 06/13/2023 Telephone [facility] Family Medicine [address] [place] [address] [place] [id number] Allie Davis CMA Social History Tobacco Use [...] Telephone Encounter - Allie Davis CMA - 06/13/2023 1:27 PM EDT Patient called into office requesting prednisone because the heat is bothering him. Stated he is having a hard time breathing. Also stated he doesn't see pulmonology until next month. * Telephone Encounter - Lori Toscano MD - 06/13/2023 1:27 PM EDT Patient should set up an appointment to further evaluate. Phone call or video appointment would be best, thanks. Thanks, LORI TOSCANO MD 06/13/23 * Telephone Encounter - Allie Davis CMA - 06/13/2023 1:27 PM EDT Patient was attempted to be contacted to set up appointment, no answer and unable to lvm documented in this encounter Plan of Treatment Upcoming Encounters Date Type Department Care Team (Late st Contact Info) Description 06/24/2025 1:30 PM EDT Office Visit [facility] Pul[facility]Sleep [facility] [address] [place] [address] Julissa Macias, WILDLIFE AND GAME PROTECTOR-FINANCIAL SALES REPRESENTATIVE [address] [place] [address], [address] [place] [address] documented as of this encounter Visit Diagnoses Not on filedocumented in this encounter Additional Health Concerns Assessment Noted Time PHQ-9 Depression Total Score: 0 11/16/19 23 10:12 AM EST documented as of this encounter Care Teams Svp Relationship Specialty Start Date End Date Lori Toscano MD [address] [place] [address] PCP - General Internal Medicine 10/13/22 documented as of this encounter
--- OUTSIDE RECORDS SUMMARY | 2025-04-20 17:40 | XMS_ITS | Encounter Summary ---
Author Organization [facility] [employer] [facility] tem Address [id number] [address] [place] [address] Care Team Providers Care Cloth Bleaching Range Back Tender Name Role Phone Lori Toscano MD Primary Care Provider [phone] Encounter Details Date Type Department Care Team (Late st Contact Info) Description 06/20/2023 [facility]phone [facility] [address] [place] [phone] Lori Toscano MD [address] [facility] [address] [place], [place] [id number] Social History Tobacco Use Types Packs/Day Years [...] encounter Miscellaneous Notes * Telephone Encounter - Yamile Curiel - 06/20/2023 2:00 PM EDT WROTE A PRESCRIPTION FOR [facility] BUT HE SAID THAT HIS INSURANCE, BUT THEY WILL FOR OZEMPIC BUT THEREIS A SHORTAGE AND HE CAN'T GET IT. PLEASE ADVISED * Telephone Encounter - Lori Toscano MD - 06/20/2023 2:00 PM EDT Do we have any ozempic samples we could share? Of atleast 1mg doses. If not, theres not many other options.... Patient should call around to near by pharmacies and ask if they have ozempic 1mg in stock, I'm happy to send a script to anywhere its available Thanks, LORI TOSCANO MD 06/20/23 documented in this encounter Plan of Treatment Upcoming Encounters Date Type Department Care Team (Late st Contact Info) Description 06/24/2025 1:30 PM EDT Office Visit [facility]Sleep [facility] [address] [place] [address] Julissa Macias, TISSUE REWINDER-CONSULTING IT ARCHITECT [address] [facility], [address] [place] [id number] documented as of this encounter Visit Diagnoses Not on filedocumented in this encounter Additional Health Concerns Assessment Noted Time PHQ-9 Depression Total Score: 0 11/16/19 23 10:12 AM EST documented as of this encounter Care Teams Cloth Bleaching Range Back Tender Relationship Specialty Start Date End Date Lori Toscano MD [address] [facility] [place] [address] PCP - General Internal Medicine 10/13/22 documented as of this encounter
[2025-04-20 17:44] VITALS: BP 160/95; PULSE 92; TEMP 36.5; O2SAT 97; BMI 54.2
[2025-04-20] MEDS: KETOROLAC TROMETHAMINE 60 MG/2 ML VIAL IM (18:05)
--- NOTE | 2025-04-20 18:47 | ED_ITS ---
Documented by User: Daxa Edward 04/20/25 18:51 HPI HPI - General Adult General Chief complaint: Extremity Injury, Lower Stated complaint: lower extremity problem Time Seen by Provider: 04/20/25 17:39 Source: patient and family Mode of arrival: walk-in Limitations: no limitations History of Present Illness HPI narrative: 44-year-old male presented here to the emergency room chief complaint of right knee pain. He states he was walking in his yard 2 days ago and his knee is buckled . Patient sees pain management for his knees. He has not followed up with them for this recent fall. He is here today for increased knee pain states it is throbbing. No acute deformity. Related Data Previous Rx's ?Medication ?Instructions ?Recorded ibuprofen 600 mg tablet 600 mg PO TID PRN pain #30 t abs 11/30/24 Allergies Allergy/AdvReac Type Severity Reaction Status Date / Time amoxicillin Allergy Severe Hives Verified 04/20/25 17:47 clindamycin Allergy Severe resp Verified 04/20/25 17:47 failure Opioid HPI Opioid Management Most Recent Opioid Data: Last Pain Scale 7 Today, 18:05 Last JAN Pain Assessment Today, 18:05 Review of Systems ROS Status of ROS 10 or more systems reviewed and unremark able except as noted in history and below PFSH PFSH Social History Little interest or pleasure in doing things: not at all Feeling down, depressed, or hopeless: not at all Exam Narrative Exam Narrative: All Systems are negative except as noted/marked.All systems reviewed and otherwise negative Nurses note and vital signs reviewed and patient is not hypoxic. General: The patient appears well and in no apparent distress. Patient is resting comfortably on cart. Skin: Warm, dry, no pallor noted. There is no rash noted. Head: Normocephalic, atraumatic Cardiovascular: Regular Rate and Rhythm Respiratory: Patient is in no distress, no accessory muscle use, lungs are clear to auscultation, no wheezing, rales or rhonchi Back: non-tender, no CVA tenderness bilaterally to percussion. GI: obese, large pannus, Normal bowel sounds, no tenderness to palpation, no masses appreciated. No rebound, guarding, or rigidity noted. Musculoskeletal:right knee pain, no acute pain or deformitym The patient has no evidence of calf tenderness, no pitting edema, symmetrical pulses noted bilaterally Neurological: A&O x4, normal speech Psychiatric: Cooperative Constitutional Vital Signs, click to edit/add: Last Vital Signs Temp 97.7 F 04/20/25 17:44 Pulse 92 H 04/20/25 17:44 Resp 18 04/20/25 17:44 BP 160/95 H 04/20/25 17:44 Pulse Ox 97 04/20/25 17:44 O2 Del Method Room Air 04/20/25 17:44 Course Vital Signs Vital signs: Vital Signs Temperature 97.7 F 04/20/25 17:44 Pulse Rate 92 H 04/20/25 17:44 Respiratory Rate 18 04/20/25 17:44 Blood Pressure 160/95 H 04/20/25 17:44 Pulse Oximetry 97 04/20/25 17:44 Oxygen Delivery Method Room Air 04/20/25 17:44 Temperature 97.7 F 04/20/25 17:44 Pulse Rate 92 H 04/20/25 17:44 Respiratory Rate 18 04/20/25 17:44 Blood Pressure 160/95 H 04/20/25 17:44 Pulse Oximetry 97 04/20/25 17:44 Oxygen Delivery Method Room Air 04/20/25 17:44 Medical Decision Making MDM Narrative Medical decision making narrative: 44-year-old male presented here to the emergency room chief complaint of right knee pain. He states he was walking in his yard 2 days ago and his knee is buckled . Patient sees pain management for his knees. He has not followed up with them for this recent fall. He is here today for increased knee pain states it is throbbing. No acute deformity. To the emergency room, patient complaint of right knee pain states he is felt a stabbing shooting pain. He is able to ambulate. There is no obvious deformity. X-rays read by radiology shows chronic changes no acute osseous abnormality Monnette mild tricompartmental joint space loss bilaterally right worse than left. Given results medicated here with Toradol and encouraged to follow back up with his pain management physician. He agrees with plan of care Differential Diagnosis Differential Diagnosis: knee pain, sprain Medical Records Medical records reviewed: Yes I reviewed the patient's medical records Imaging Data knee pain: Attestation: I have reviewed the pertinent imaging results. Radiologist's impression: No acute osseous abnormality evident, mild tricompartmental joint space loss bilaterally Discharge Plan Discharge Chief Complaint: Extremity Injury, Lower Clinical Impression: Knee joint pain Patient Disposition: Home, Self-Care Time of Disposition Decision: 18:31 Condition: Good Prescriptions / Home Meds: No Action ibuprofen 600 mg tablet 600 mg PO TID PRN (Reason: pain) Qty: 30 0RF Print Language: Australian Instructions: Knee Pain (ED), P.R.I.C.E. Treatment (ED) Additional Instructions: follow up with pain management Referrals: Lori Lyles ND [Primary Care Provider] - 1 week Discharge Date/Time: 04/20/25 18:49 Documented by User: Stephen Russell MD 04/20/25 20:16 HPI HPI - General Adult General Chief complaint: Extremity Injury, Lower Stated complaint: lower extremity problem Time Seen by Provider: 04/20/25 17:39 Related Data Previous Rx's ?Medication ?Instructions ?Recorded ibuprofen 600 mg tablet 600 mg PO TID PRN pain #30 t abs 11/30/24 Allergies Allergy/AdvReac Type Severity Reaction Status Date / Time amoxicillin Allergy Severe Hives Verified 04/20/25 17:47 clindamycin Allergy Severe resp Verified 04/20/25 17:47 failure Opioid HPI Opioid Management Most Recent Opioid Data: Last Pain Scale 7 Today, 18:05 Last MAR Pain Assessment Today, 18:05 PFSH PFSH Social History Little interest or pleasure in doing things: not at all Feeling down, depressed, or hopeless: not at all Exam Constitutional Vital Signs, click to edit/add: Last Vital Signs Temp 97.7 F 04/20/25 17:44 Pulse 92 H 04/20/25 17:44 Resp 18 04/20/25 17:44 BP 160/95 H 04/20/25 17:44 Pulse Ox 97 04/20/25 17:44 O2 Del Method Room Air 04/20/25 17:44 Course Vital Signs Vital signs: Vital Signs Temperature 97.7 F 04/20/25 17:44 Pulse Rate 92 H 04/20/25 17:44 Respiratory Rate 18 04/20/25 17:44 Blood Pressure 160/95 H 04/20/25 17:44 Pulse Oximetry 97 04/20/25 17:44 Oxygen Delivery Method Room Air 04/20/25 17:44 Temperature 97.7 F 04/20/25 17:44 Pulse Rate 92 H 04/20/25 17:44 Respiratory Rate 18 04/20/25 17:44 Blood Pressure 160/95 H 04/20/25 17:44 Pulse Oximetry 97 04/20/25 17:44 Oxygen Delivery Method Room Air 04/20/25 17:44 Medical Decision Making MDM Narrative Medical decision making narrative: 44-year-old male presented here to the emergency room chief complaint of right knee pain. He states he was walking in his yard 2 days ago and his knee is buckled . Patient sees pain management for his knees. He has not followed up with them for this recent fall. He is here today for increased knee pain states it is throbbing. No acute deformity. To the emergency room, patient complaint of right knee pain states he is felt a stabbing shooting pain. He is able to ambulate. There is no obvious deformity. X-rays read by radiology shows chronic changes no acute osseous abnormality Monnette mild tricompartmental joint space loss bilaterally right worse than left. Given results medicated here with Toradol and encouraged to follow back up with his pain management physician. He agrees with plan of care I, Dr Russell, have reviewed the above progress note and course of action in the ER; agree with the above. I have personally gone over history and physical, and discussed disposition and treatment plan with the PA. Discharge Plan Discharge Chief Complaint: Extremity Injury, Lower Clinical Impression: Knee joint pain Patient Disposition: Home, Self-Care Time of Disposition Decision: 18:31 Condition: Good Prescriptions / Home Meds: No Action ibuprofen 600 mg tablet 600 mg PO TID PRN (Reason: pain) Qty: 30 0RF Print Language: Australian Instructions: Knee Pain (ED), P.R.I.C.E. Treatment (ED) Additional Instructions: follow up with pain management Referrals: Lori Lyles ND [Primary Care Provider] - 1 week Discharge Date/Time: 04/20/25 18:49
== END 2025-04-20 18:49 | disposition home or self-care (01) ==
PROVIDERS: Emergency Provider Emergency Medicine; PCP Student in an Organized Health Care Education/Training Program
DX: M25.561 Pain in right knee (principal); M25.361 Other instability, right knee; M17.0 Bilateral primary osteoarthritis of knee
CPT/HCPCS: 73562; 96372; 99284; J1885

== ENCOUNTER 2025-05-04 20:09 | Emergency (ER) | payer MEDICARE, MEDICAID, SELFPAY ==
--- OUTSIDE RECORDS SUMMARY | 2025-05-04 20:14 | XMS_ITS | Clinical Summary ---
Author Organization [facility] Address [address] [place] [address] Care Team Providers Care Legal Executive Assistant Name Role Phone Jennifer Reaves CNP Primary Care Provider Emery Cook MD Unavailable [phone] Social History Tobacco Use Types Packs/Day Years Used Date Smoking Tobacco: Never Assessed Area Deprivation Index Answer Date Mansoor rded National Score (1-100), lower number is lower ri sk Not on file 07/01/2021 State Score (1-10), lower number is lower risk N ot on file 07/01/2021 Data from: https://www.neighborhoodatlas.medicine.[facility] [place]/. Last address used for calculation Not on [...] Vaccine (Season Ended) [address] [place] [address] MEDICARE MEDICAID [place] Care Teams Legal Executive Assistant Relationship Specialty Start Date End Date Jennifer Reaves CNP PCP - General Family Medicine 01/30/15 Emery Cook MD [address] [place] [address] Referring Pain Management 06/02/21
--- OUTSIDE RECORDS SUMMARY | 2025-05-04 20:14 | XMS_ITS | Clinical Summary ---
Author Organization [facility] Address [address] [place] [address] Care Team Providers Care Mortgage Counselor Name Role Phone Unavailable Primary Care Provider [...] Comments Influenza Vaccine (Season Ended) [address] [place] [address] MEDICARE
--- OUTSIDE RECORDS SUMMARY | 2025-05-04 20:27 | XMS_ITS | CCD ---
Author Organization [facility] Care Team Providers Care Fiberglass Technician Name Role Phone Jean Paul SALJennifer Primary Care Provider Emery Cook MD Unavailable Emery Cook Unavailable Lucinda Van Unavailable SAL MARTINEZ Primary Care Unavailable ARIA, DR REZA Admitting Unavailable ARIA, DR REZA Attending Unavailable ARIA, DR REZA Consulting Unavailable TIANNA, MINDY Consulting Unavailable ZAHRAASAL MARIEE Admitting Unavailable SAL MARTINEZ Attending Unavailable ZAHRAAKODI, SAL MODESTA Primary Care Unavailable ZAHRAASAL MARIEE MODESTA Consulting Unavailable Gorge Mcdowell Unavailable Aleida Porter Unavailable Lo Toscano MD Primary Care Provider LO TOSCANO Primary Care Unavailable HITESH NASH Attending Unavailable Lo Toscano MD Primary Care Provider [phone] LO TOSCANO Attending Unavailable LO TOSCANO Referring Unavailable LO TOSCANO Primary Care Unavailable LO TOSCANO Attending Unavailable LAINEY TOSCANOHAMID Greg Referring Unavailable LAINEY TOSCANOHAMID Greg Primary Care Unavailable Allergies Allergy Classification Reported Allergen(s) Allergy Type Date of Onset Reaction(s) Facility (20 sources) Amoxicillin; Translations: [Amoxicillin] Drug Allergy 0 Hives [facility] Repository (20 sources) Clindamycin; Translations: [CLINDAMYCIN] Drug Allergy 0 Anaphylaxis [facility] (1 source) Clindamycin Drug Allergy [facility] Repository (20 sources) Penicillins; Translations: [PENICILLINS] Propensity to adverse reactions to drug 0 [facility] (10 sources) Penicillins Propensity to adverse reactions to drug 0 [facility] Medications Current Medications Medication Drug Class(es) Dates Sig (Normalized) Sig (Original) acetaminophen 500 mg oral tablet (11 sources) Start: 12-09-2024 take 1 tablet by mouth every six hours as needed for pain acetaminophen (TYLENOL EXTRA STRENGTH) 500 mg tablet Take 1 tablet (500 mg total) by mouth every 6 (six) hours as needed for pain. 30 tablet 12/09/2024 Active [id number] 200 actuat albuterol 0.09 mg/actuat metered dose inhaler (20 sources) beta2-Adrenergic Agonist Start: 04-20-2025 albuterol (PROVENTIL HFA;VENTOLIN HFA) 90 mcg/actuation inhaler Indications: Moderate persistent reactive airway disease with acute exacerbation USE 2 INHALATIONS BY MOUTH EVERY 6 HOURS NEEDED FOR WHEEZING 34 g 2 04/20/2025 Active Start: 03-10-2024 End: 04-20-2025 take 2 puff(s) by inhalation every six hours as needed for wheezing albuterol (PROVENTIL HFA;VENTOLIN HFA) 90 mcg/actuation inhaler Indications: Moderate persistent reactive airway disease with acute exacerbation Inhale 2 puffs every 6 (six) hours as needed for wheezing. 25.5 g 11 03/10/2024 04/20/2025 Discontinued Start: 01-30-2024 End: 03-10-2024 albuterol (PROVENTIL HFA;FLORESITA TOLIN HFA) 90 mcg/actuation inhaler Indications: Moderate persistent reactive airway disease with acute exacerbation USE 2 INHALATIONS BY MOUTH EVERY 6 HOURS NEEDED FOR WHEEZING 25.5 g 3 01/30/2024 03/10/2024 Discontinued (Reorder) Start: 11-01-2023 End: 01-30-2024 take 2 puff(s) by inhalation every six hours as needed for wheezing albuterol (PROVENTIL HFA;VENTOLIN HFA) 90 mcg/actuation inhaler Indications: Moderate persistent reactive airway disease with acute exacerbation Inhale 2 puffs every 6 (six) hours as needed for wheezing. 18 g 2 11/01/2023 01/30/2024 Discontinued Start: 05-12-2020 take 2.5 mg by inhal ation every six hours Albuterol Sulfate 2.5 mg /3 mL (0.083 %) solution for nebulization Active 2.5 MG INHALATION Q6H 75 May 11, 2020 11:00pm Start: 08-25-2018 End: 04-10-2019 take 1 puff(s) by inhalation every four to six hours as needed for wheezing Albuterol Sulfate (Proventil Hfa) 90 mcg/actuation Hfa Aerosol Inhaler Discontinued 2 PUFF INHALATION EVERY 4-6 HOURS as needed for Shortness Of Breath Or Wheezing August 24, 2018 11:00pm April 10, 2019 6:41am with spacer Start: 09-14-2017 End: 12-13-2020 Albuterol Sulfate 2.5 mg /3 mL (0.083 %) solution for nebulization Discontinued 1 PUFF INHALATION As Directed as needed for Wheezing September 13, 2017 11:00pm December 13, 2020 12:48pm Start: 09-14-2017 Albuterol Sulf ate (Ventolin Hfa) 108 HFA aerosol inhaler Active 1 PUFF INHALATION As Directed as needed for Wheezing September 13, 2017 11:00pm Start: 09-14-2017 Albuterol Sulf ate (Ventolin Hfa) 108 HFA aerosol inhaler Active 1 PUFF INHALATION As Directed September 14, 2017 12:00am Start: 08-24-2010 take 2 puff(s) by in halation every six hours as needed Ventolin HFA 108 (90 Base) MCG/ACT 2 puffs Inhalation every 6 hrs as needed for 90 days Aug, Active take 1.25 mg by inha lation every six hours as needed for wheezing albuterol (ACCUNEB) 1.25 mg/3 mL nebulizer solution Inhale 3 mL (1.25 mg total) by nebulization every 6 (six) hours as needed for wheezing. Active Albuterol Sulfat e (2.5 MG/3ML) 0.083% 1 unit dose Inhalation four times a day dx J45.909 for 30 day(s) Active albuterol 0.833 mg/ml / ipratropium bromide 0.167 mg/ml inhalation solution (4 sources) Anticholinergic, beta2-Adrenergic Agonist Start: 12-05-2024 take 1 mL by inhalation four times daily as needed Ipratropium-Albuterol 0.5 mg-3 mg(2.5 mg base)/3 mL solution for nebulization Active 3 ML INHALATION Four times daily as needed for shortness of breath December 05, 2024 12:00am Start: 10-25-2024 take 1 mL by inhalat ion every six hours as needed Ipratropium-Albuterol 0.5 mg-3 mg(2.5 mg base)/3 mL solution for nebulization Active 3 ML INHALATION Every 6 hours as needed for SOB October 25, 2024 12:00am Start: 07-16-2024 End: 10-25-2024 take 1 mL by inhalation every four to six hours as needed for wheezing Ipratropium-Albuterol 0.5 mg-3 mg(2.5 mg base)/3 mL solution for nebulization Discontinued 3 ML INHALATION EVERY 4-6 HOURS as needed for shortness of breath or wheezing July 15, 2024 11:00pm October 25, 2024 12:52pm ALPRAZolam 1 mg oral tablet (15 sources) Benzodiazepine Start: 06-13-2021 Xanax 1 MG 1 t ablet Orally 1 tablet 30 minutes prior to MRI, may take another at the time of MRI if needed for 1 day Jun, Active atorvastatin 40 mg oral tablet (20 sources) HMG-CoA Reductase Inhibitor Start: 07-16-2024 Atorvastatin Active MG PO July 16, 2024 12:00am Start: 10-10-2023 End: 10-25-2024 take 1 tablet by mouth in the morning atorvastatin (LIPITOR) 40 mg tablet Indications: ASCVD (arteriosclerotic cardiovascular disease) TAKE 1 TABLET BY MOUTH IN THE MORNING 100 tablet 2 09/17/2024 Active baclofen 20 mg oral tablet (5 sources) gamma-Aminobutyric Acid-ergic Agonist Start: 05-02-2021 take 1 tablet by mouth once daily as needed Baclofen 20 MG 1 tablet as needed Orally Once a day prn for 30 day(s) Apr, Active blood-glucose sensor (FREESTYLE ALEM 3 SENSOR) device (12 sources) Start: 02-24-2025 blood-glucose sensor (FREESTYLE ALEM 3 SENSOR) device Indications: Type 2 diabetes mellitus with other specified complication, without long-term current use of insulin ([facility]) REPLACE EVERY 14 DAYS 5 each 5 02/24/2025 Active Start: 02-24-2025 End: 02-24-2025 blood-glucose sensor (FREEST YLE ALEM 3 SENSOR) device Indications: Type 2 diabetes mellitus with other specified complication, without long-term current use of insulin ([facility]) REPLACE EVERY 14 DAYS 5 each 5 02/24/2025 02/24/2025 Discontinued clonazePAM 2 mg oral tablet (20 sources) Benzodiazepine Start: 02-12-2023 take 1 tablet by mouth every twenty-four hours clonazePAM 2 MG 1 tablet at bedtime Orally Once a day for 30 days DX: Restless leg syndrome Feb, Active Start: 09-21-2022 take 1 tablet by alfredo th every twenty-four hours clonazePAM 2 MG 1 tablet at bedtime Orally Once a day for 30 day(s) DX: Restless leg syndrome Sep, Active Start: 05-02-2022 take 1 tablet by alfredo th every twenty-four hours clonazePAM 2 MG 1 tablet at bedtime Orally Once a day DX: Restless leg syndrome Apr, Active Start: 01-04-2022 take 1 tablet by alfredo th every twenty-four hours clonazePAM 2 MG 1 tablet at bedtime Orally Once a day for 30 day(s) DX: Restless leg syndrome Dec, Active Start: 12-08-2020 End: 10-25-2024 take 1.5 mg by mouth once daily at bedtime Clonazepam 1 mg tablet Discontinued 1.5 MG PO Daily at bedtime December 08, 2020 12:00am October 25, 2024 12:51pm Start: 12-08-2020 take 1.5 mg by mouth once daily at bedtime Clonazepam Active 1.5 MG PO Daily at bedtime December 08, 2020 1:00am Start: 05-03-2018 End: 12-08-2020 take 1 tablet by mouth at bedtime Clonazepam 0.5 mg ta blet Discontinued 0.5 MG PO Bedtime May 02, 2018 11:00pm December 08, 2020 2:21pm CPAP Mask and supplies (17 sources) CPAP Mask and cotter pplies as directed Active cyclobenzaprine hydrochloride 10 mg oral tablet (20 sources) Muscle Relaxant Start: 12-09-19 take 1 tablet by mouth twice daily as needed for muscle spasms cyclobenzaprine (FLEXERIL) 10 mg tablet Take 1 tablet (10 mg total) by mouth 2 (two) times a day as needed for muscle spasms. 10 tablet 12/09/2024 Active Start: 07-11-2023 take 1 tablet by alfredo th twice daily cyclobenzaprine (FLEXERIL) 10 mg tablet Indications: Chronic midline low back pain without sciatica take 1 tablet by mouth twice a day if needed 60 tablet 2 07/11/2023 Active Start: 07-30-2020 End: 10-25-2024 take 1 tablet by mouth three times daily as needed for muscle spasms Cyclobenzaprine 10 mg Tablet Discontinued 10 MG PO Three times daily as needed for Muscle Spasm July 29, 2020 11:00pm October 25, 2024 12:51pm take 1 tablet by alfredo th twice daily as needed Cyclobenzaprine HCl 10 MG 1 tablet as needed Orally up to twice daily as needed for 30 day(s) Active 12 hr dextromethorphan hydrobromide 60 mg / guaiFENesin 1200 mg extended release oral tablet (1 source) Uncompetitive S-mkzaky-T-aspartate Receptor Antagonist, Sigma-1 Agonist Start: 12-05-2024 take 1 tablet by mouth every twelve hours Dextromethorphan-Guaifenesin 60-1,200 mg tablet extended release 12 hr Active 1 TAB PO Every 12 hours December 05, 2024 12:00am famotidine 20 mg oral tablet (17 sources) Histamine-2 Receptor Antagonist Start: 02-16-2021 take 1 tablet by mouth every twenty- four hours flash glucose scanning reader (FREESTYLE ALEM 2 READER[place] [facility] [place] Start: 09-27-2023 flash glucose scanning reade r (FREESTYLE ALEM 2 READER[place] [facility] [place]ications: Type 2 diabetes mellitus with other specified complication, without long-term current use of insulin ([facility]) Check sugar every 8 hours, use with sensor. 1 each 09/27/2023 Active Start: 09-27-2023 flash glucose scanning reader (FREESTYLE ALEM 2 READER[place] [facility] [place]ications: Type 2 diabetes mellitus with other specified complication, without long-term current use of insulin ([facility]) Check sugar every 8 hours, use with sensor. 1 each 0 09/27/2023 Active flash glucose sensor (FREESTYLE ALEM 2 SENSOR) kit (20 sources) Start: 09-27-2023 flash glucose sensor (FREESTYLE ALEM 2 SENSOR) kit Indications: Type 2 diabetes mellitus with other specified complication, without long-term current use of insulin ([facility]) Replace every 2 weeks 2 kit 11 09/27/2023 Active fluticasone / salmeterol (20 sources) Corticosteroid, beta2-Adrenergic Agonist Start: 01-05-2025 fluticasone propion-salmeteroL (ADVAIR) 500-50 mcg/dose DISKUS INHALE 1 INHALATION BY MOUTH IN THE MORNING AND 1 INHALATION BY MOUTH BEFORE BEDTIME 180 each 3 01/05/2025 Active Start: 10-25-2024 Fluticasone Pr opion-Salmeterol 500-50 mcg/dose blister with device Active 1 INH INHALATION Twice daily October 25, 2024 12:51pm Start: 03-10-2024 End: 01-05-2025 take 1 puff(s) by inhalation in the morning fluticasone propion-salmeteroL (ADVAIR) 500-50 mcg/dose DISKUS Inhale 1 puff in the morning and 1 puff before bedtime. 60 each 03/10/2024 01/05/2025 Discontinued Start: 03-10-2024 take 1 puff(s) by in halation in the morning fluticasone propion-salmeteroL (ADVAIR) 500-50 mcg/dose DISKUS Inhale 1 puff in the morning and 1 puff before bedtime. 60 each 03/10/2024 Active Start: 07-19-2022 take 1 puff(s) by in halation twice daily Advair Diskus 500-50 MCG/ACT 1 puff Inhalation Twice a day for 90 days Jul, Active Start: 01-04-2022 take 1 puff(s) by in halation twice daily Fluticasone-Salmeterol 232-14 MCG/ACT 1 puff Inhalation Twice a day for 30 days Dec, Active End: 03-10-2024 take 1 puff(s) by inhalation in the morning fluticasone propion-salmeteroL (ADVAIR) 500-50 mcg/dose DISKUS Inhale 1 puff in the morning and 1 puff before bedtime. 03/10/2024 Discontinued (Reorder) take 1 puff(s) by in halation in the morning fluticasone propion-salmeteroL (ADVAIR) 500-50 mcg/dose DISKUS Inhale 1 puff in the morning and 1 puff before bedtime. Active take 1 puff(s) by in halation in the morning fluticasone propion-salmeteroL (ADVAIR) 500-50 mcg/dose DISKUS Inhale 1 puff in the morning and 1 puff before bedtime. 0 Active Fluticasone Propion-Salmeterol (1 source) Start: 07-16-2024 Fluticasone Propion-Salmeterol Active INHALATION July 16, 2024 12:00am 12 hr guaiFENesin 600 mg extended release oral tablet (3 sources) Start: 12-27-2022 take 1 tablet by mouth every twelve hours guaiFENesin ER 600 MG 1 tablet as needed Orally every 12 hrs for 30 day(s) Dec, Active ibuprofen 800 mg oral tablet (20 sources) Nonsteroidal Anti-inflammator y Drug Start: 12-09-2024 take 1 tablet by mouth three times daily ibuprofen (MOTRIN) 800 mg tablet Take 1 tablet (800 mg total) by mouth 3 (three) times a day. 21 tablet 12/09/2024 Active Start: 08-14-2018 take 1 tablet by alfredo th three times daily as needed for pain Ibuprofen 800 mg Tablet Active 800 MG PO Three times daily as needed for Pain August 13, 2018 11:00pm take 1 tablet by alfredo th every six hours as needed for pain ibuprofen (ADVIL,MOTRIN) 800 mg tablet Take 1 tablet (800 mg total) by mouth every 6 (six) hours as needed for pain. Active ipratropium bromide 0.2 mg/ml inhalation solution (20 sources) Anticholinergic Start: 12-08-2020 End: 10-25-2024 ipratropium (ATROVENT) 0.02 % nebulizer solution 4 (four) times a day. 06/11/2023 Active Start: 12-08-2020 take 1 mL by inhalat ion four times daily Ipratropium Potwin Active 1 ML INHALATION Four times daily December 08, 2020 1:00am Start: 04-19-2016 take 1 [IU] by inhal ation four times daily Ipratropium Potwin 0.02 % 1 unit dose Inhalation four times a day for 30 days Apr, Active lisinopril 20 mg oral tablet (20 sources) Angiotensin Converting Enzyme Inhibitor Start: 07-16-2024 Lisinopril Active MG PO July 16, 2024 12:00am Start: 10-10-2023 End: 10-25-2024 take 1 tablet by mouth in the morning for diabetes mellitus lisinopriL (PRINIVIL,ZESTRIL) 20 mg tablet Indications: Type 2 diabetes mellitus with other specified complication, without long-term current use of insulin ([facility]) , Secondary hypertension TAKE 1 TABLET BY MOUTH IN THE MORNING FOR KIDNEY DISEASE FROM DIABETES 100 tablet 2 10/19/2024 Active Start: 09-14-2017 End: 04-10-2019 take 1 tablet by mouth once daily Lisinopril 10 tablet Discontinued 10 MG PO Daily September 13, 2017 11:00pm April 10, 2019 6:42am metFORMIN hydrochloride 1000 mg oral tablet (17 sources) Biguanide take 1 tablet by mouth twice daily methocarbamol 500 mg oral tablet (8 sources) Muscle Relaxant Start: 09-14-20 22 take 1 tablet by mouth twice daily Methocarbamol 500 MG 1 tablet Orally twice daily for 30 day(s) Sep, Active 30 actuat mometasone furoate 0.22 mg/actuat dry powder inhaler (7 sources) Corticosteroid Start: 03-19-20 25 take 1 puff(s) by inhalation in the morning mometasone (ASMANEX) 220 mcg/ actuation (30) aerosol powdr breath activated Inhale 1 puff in the morning and 1 puff before bedtime. 1 each 03/19/2025 Active Start: 03-13-2025 End: 03-19-2025 take 1 puff(s) by inhalation in the morning mometasone (ASMANEX TWISTHALER) 220 mcg/ actuation (14) inhaler Indications: Moderate persistent reactive airway disease with acute exacerbation Inhale 1 puff in the morning and 1 puff before bedtime. 1 each 2 03/13/2025 03/19/2025 Discontinued nystatin 100 unt/mg topical powder (20 sources) Polyene Antifungal Start: 10-25-2024 Nystatin (N yamyc) 100,000 unit/gram powder Active TOPICAL October 25, 2024 12:00am Start: 09-12-2024 nystatin (NYST OP) powder Indications: Candidal dermatitis Apply topically 2 (two) times a day. 60 g 1 09/12/2024 Active Start: 11-04-2023 End: 09-12-2024 NYSTOP powder Indications: C andidal dermatitis APPLY TO AFFECTED AREA FOUR TIMES A DAY - MORNING, NOON, EVENING AND BEDTIME 15 g 11/04/2023 09/12/2024 Discontinued (Reorder) Start: 08-21-2023 End: 11-04-2023 nystatin (MYCOSTATIN) powder Indications: Candidal dermatitis Apply 1 Application topically in the morning and 1 Application at noon and 1 Application in the evening and 1 Application before bedtime. 15 g 0 08/21/2023 11/04/2023 Discontinued omeprazole 20 mg delayed release oral capsule (19 sources) Proton Pump Inhibitor Start: 09-14-2017 take 1 capsule by mouth once daily Omeprazole 20 capsule,delayed release(DR/EC) Active 20 MG PO Daily September 13, 2017 11:00pm ondansetron 4 mg disintegrating oral tablet (20 sources) Serotonin-3 Receptor Antagonist Start: 08-21-2023 End: 01-30-2024 ondansetron ODT (ZOFRAN ODT) 4 mg disintegrating tablet Indications: Nausea DISSOLVE 1 TABLET ON THE TONGUE EVERY 8 HOURS NEEDED FOR NAUSEA OR VOMITING 20 tablet 01/30/2024 Active Start: 01-27-2021 End: 10-25-2024 take 1 tablet by mouth every six hours as needed for nausea Ondansetron Hcl 4 mg tablet Discontinued 4 MG PO Q6H as needed for Nausea January 26, 2021 11:00pm October 25, 2024 12:53pm oseltamivir 75 mg oral capsule (1 source) Neuraminidase Inhibitor Start: 12-05-2024 take 1 capsule by mouth twice daily Oseltamivir (Tamiflu) 75 mg capsule Active 75 MG PO Twice daily 08 16December 05, 2024 12:00am OZEMPIC 1 mg/dose (4 mg/3 mL) pen injector (20 sources) Start: 11-26-2024 inject 1 mg by subcutaneous injection every week OZEMPIC 1 mg/dose (4 mg/3 mL) pen injector INJECT SUBCUTANEOUSLY 1 MG EVERY WEEK 9 mL 3 11/26/2024 Active Start: 02-04-2024 End: 11-26-2024 inject 1 mg by subcutaneous injection every week OZEMPIC 1 mg/dose (4 mg/3 mL) pen injector INJECT SUBCUTANEOUSLY 1 MG EVERY WEEK 9 mL 3 02/04/2024 11/26/2024 Discontinued Start: 02-04-2024 inject 1 mg by subcu taneous injection every week OZEMPIC 1 mg/dose (4 mg/3 mL) pen injector INJECT SUBCUTANEOUSLY 1 MG EVERY WEEK 9 mL 3 02/04/2024 Active pantoprazole 40 mg delayed release oral tablet (11 sources) Proton Pump Inhibitor Start: 07-19-2022 take 1 tablet by mouth every twenty-four hours Pantoprazole Sodium 40 MG 1 tablet Orally Once a day for 30 day(s) Jul, Active predniSONE 20 mg oral tablet (20 sources) Start: 03-13-2025 predniSONE (DELTASONE) 20 mg tablet Indications: Moderate persistent reactive airway disease with acute exacerbation 3 daily for 3 days then 2 daily for 3 days then 1 daily for 3 days 18 tablet 03/13/2025 Active Start: 12-05-2024 take 2 tablets by [facility] once daily Prednisone 20 mg tablet Active 20 MG PO .COMPLEX December 05, 2024 12:00am Take 2 tabs po daily x 5 days Start: 08-09-2022 predniSONE 10 MG 4 daily for 4 days, 2 daily for 4 days, then 1 daily for 4 days Orally Once a day for 12 day(s) Oct, Active Start: 02-08-2022 predniSONE 10 MG 4 daily for 4 days, 2 daily for 4 days, then 1 daily for 4 days Orally Once a day for 12 day(s) Jan, Active Start: 07-30-2020 End: 12-13-2020 Prednisone 10 mg Tablet Discontinued 60 MG PO Daily July 29, 2020 11:00pm December 13, 2020 12:48pm administer with food or milk Start: 07-30-2020 End: 12-13-2020 take 60 mg by mouth once daily at mealtime Prednisone Discontinued 60 MG PO Daily July 30, 2020 12:00am December 13, 2020 1:48pm administer with food or milk Start: 05-12-2020 End: 12-13-2020 take 3 tablets by mouth once daily Prednisone 20 mg tablet Discontinued 60 MG PO Daily May 11, 2020 11:00pm December 13, 2020 12:47pm Start: 05-12-2020 End: 12-13-2020 take 60 mg by mouth once daily Prednisone Discontinued 60 MG PO Daily May 12, 2020 12:00am December 13, 2020 1:47pm Start: 09-14-2017 End: 05-03-2018 Prednisone 10 tablet Discont inued TABLET September 13, 2017 11:00pm May 03, 2018 6:59pm pregabalin 75 mg oral capsule (20 sources) Start: 09-04-2023 take 1 capsule by mouth in the morning, then take 1 capsule by mouth at bedtime pregabalin (LYRICA) 75 mg capsule Indications: Lumbar spondylosis Take 1 capsule (75 mg total) by mouth in the morning and 1 capsule (75 mg total) before bedtime. 60 capsule 1 09/04/2023 Active Semaglutide (1 source) Start: 10-25-2024 inject 1 mg by subcutaneous injection every week Semaglutide (Ozempic) 1 mg/dose (4 mg/3 mL) pen injector Active 1 MG SUBCUT every week October 25, 2024 12:00am semaglutide (OZEMPIC) 2 mg/dose (8 mg/3 mL) pen injector (10 sources) Start: 02-24-2025 semaglutide (OZEMPIC) 2 mg/dose (8 mg/3 mL) pen injector Indications: Type 2 diabetes mellitus with other specified complication, without long-term current use of insulin ([facility]) , Obesity, morbid, BMI 50 or higher ([facility]) , PAULA (obstructive sleep apnea) Inject 2 mg under the skin every 7 days. 3 mL 02/24/2025 Active SITagliptin 50 mg oral tablet (20 sources) Dipeptidyl Peptidase 4 Inhibitor Start: 10-10-2023 End: 10-25-2024 take 1 tablet by mouth once daily JANUVIA 50 mg tablet Indications: Controlled type 2 diabetes mellitus without complication, without long-term current use of insulin ([facility]) TAKE 1 TABLET BY MOUTH ONCE DAILY 100 tablet 2 10/19/2024 Active Tens Units (1 source) Start: 01-27-2021 Tens Units Active EACH MISCELLANE January 27, 2021 12:00am Tens Units Device (1 source) Start: 01-27-2021 Tens Units Device Active EACH MISCELLANE January 26, 2021 11:00pm topiramate 50 mg oral tablet (20 sources) Start: 07-16-2024 Topiramate Active MG PO July 16, 2024 12:00am Start: 11-01-2023 End: 12-05-2024 take 1 tablet by mouth in the morning topiramate (TOPAMAX) 50 mg tablet Indications: BMI 60.0-69.9, adult ([facility] [place]) TAKE 1 TABLET BY MOUTH IN THE MORNING AND 1 TABLET BY MOUTH BEFORE BEDTIME 200 tablet 2 08/08/2024 Active triamcinolone acetonide 1 mg/ml topical cream (20 sources) Corticosteroid Start: 10-25-2024 Triamcinolone Acetonide 0.1 % cream Active APPLIC TOPICAL October 25, 2024 12:00am Start: 07-23-2023 End: 04-13-2025 triamcinolone (KENALOG) 0.1 % cream Apply 1 Application topically in the morning and 1 Application before bedtime. 60 g 1 04/13/2025 Active Start: 11-27-2017 Kenalog -40 mg Nov, 40 mg Completed/Discontinued Medications Medication Drug Class(es) Dates Sig (Normalized) Sig (Original) acetaminophen 325 mg / oxyCODONE hydrochloride 5 mg oral tablet (2 sources) Opioid Agonist Start: 05-03-2018 End: 08-13-2018 take 1 tablet by mouth every four to six hours as needed for pain Oxycodone-Acetamin ophen (Percocet) 5-325 mg tablet Discontinued 1 TAB PO EVERY 4-6 HOURS as needed for pain May 03, 2018 August 13, 2018 10:57pm azithromycin 250 mg oral tablet (15 sources) Macrolide Antimicrobial Start: 10-25-2024 End: 12-05-2024 Azithromycin (Zithromax) 250 mg tablet Discontinued 0 PO .COMPLEX October 25, 2024 12:00am December 05, 2024 1:28pm For 250 mg dose pack: take 500 mg today (day 1), then 250 mg for 4 days (days 2-5) PO Start: 03-05-2023 Azithromycin 2 50 MG 2 tablet on the first day, then 1 tablet daily for 4 days Orally Once a day for 5 day(s) Feb, Active Start: 08-09-2022 Zithromax Z-Pa k 250 MG 2 tablet on the first day, then 1 tablet daily for 4 days Orally Once a day for 5 day(s) Oct, Active Start: 05-18-2022 Zithromax Z-Pa k 250 MG 2 tablet on the first day, then 1 tablet daily for 4 days Orally Once a day for 5 day(s) May, Active cetirizine hydrochloride 10 mg oral capsule (20 sources) Histamine-1 Receptor Antagonist Start: 04-10-2019 End: 12-13-2020 take 1 capsule by mouth once daily Cetirizine (Zyrtec) 10 mg Capsule Discontinued 10 MG PO Daily April 09, 2019 11:00pm December 13, 2020 12:45pm Start: 05-03-2018 take 1 tablet by alfredo th once daily Cetirizine 10 mg tablet Active 10 MG PO Daily May 02, 2018 11:00pm Dexamethasone (2 sources) Corticosteroid Start: 03-05-2023 DEXAMETHASONE Feb, 10 mg doxycycline hyclate 100 mg oral tablet (2 sources) Tetracycline-class Drug Start: 09-11-2018 End: 09-25-2018 take 1 tablet by mouth twice daily Doxycycline Hyclate 100 mg tablet Discontinued 100 MG PO Twice daily September 10, 2018 11:00pm September 24, 2018 12:00am September 25, 2018 12:01am FLUoxetine 20 mg oral capsule (2 sources) Serotonin Reuptake Inhibitor Start: 09-14-2017 End: 05-03-2018 Fluoxetine 20 mg capsule Discontinued September 13, 2017 11:00pm May 03, 2018 6:59pm Start: 09-14-2017 End: 05-03-2018 Fluoxetine Discontinued Rakan thapa 2016 12:00am May 03, 2018 7:59pm Fluticasone Propion-Salmeterol 500-50 mcg/dose blister with device (1 source) Start: 07-16-2024 End: 10-25-2024 Fluticasone Propion-Salmeterol 500-50 mcg/dose blister with device Discontinued INHALATION July 15, 2024 11:00pm October 25, 2024 12:54pm 120 actuat formoterol fumarate 0.005 mg/actuat / mometasone furoate 0.2 mg/actuat metered dose inhaler (4 sources) Corticosteroid, beta2-Adrenergi c Agonist Start: 09-14-2017 End: 10-25-2024 Mometasone-Formoterol (Dulera) 200-5 mcg/actuation HFA aerosol inhaler Discontinued 1 PUFF INHALATION As Directed December 08, 2020 12:00am December 13, 2020 12:47pm HYLAN G-F 20 (20 sources) Start: 11-17-2020 Synvisc Nov 16 mg Start: 11-08-2020 Synvisc Oct 16 mg Start: 10-25-2020 Synvisc Oct 16 mg lidocaine 0.05 mg/mg medicated patch (19 sources) Antiarrhythmic, Amide Local Anesthetic Start: 12-08-2020 End: 10-25-2024 Lidocaine 5 % adhesive patch,medicated Discontinued 1 PATCH TOPICAL As Directed December 08, 2020 12:00am October 25, 2024 12:52pm Start: 12-08-2020 Lidocaine Acti ve 1 PATCH TOPICAL As Directed December 08, 2020 1:00am Lidoderm 5 % 1 p atch daily Externally Once a day for 30 days Active loratadine 10 mg oral tablet (19 sources) Start: 04-01-2020 End: 12-13-2020 take 1 tablet by mouth once daily Loratadine 10 mg Tablet Discontinued 10 MG PO Daily December 08, 2020 12:00am December 13, 2020 12:47pm losartan potassium 25 mg oral tablet (19 sources) Angiotensin 2 Receptor Mac Start: 12-08-2020 End: 10-25-2024 take 1 tablet by mouth once daily Losartan 25 mg tablet Discontinued 25 MG PO Daily December 08, 2020 12:00am October 25, 2024 12:52pm meloxicam 15 mg oral tablet (2 sources) Nonsteroidal Anti-inflammatory Drug Start: 05-03-2018 End: 08-13-2018 take 1 tablet by mouth once daily Meloxicam 15 mg tablet Discontinued 15 MG PO Daily May 02, 2018 11:00pm August 13, 2018 10:57pm methylPREDNISolone 4 mg oral tablet (3 sources) Corticosteroid Start: 07-16-2024 End: 10-25-2024 take 1 tablet by mouth once Methylprednisolone (Medrol (Virgil)) 4 mg tablets,dose pack Discontinued 0 PO per package directions July 15, 2024 11:00pm October 25, 2024 12:53pm PO PER PKG DIR Start: 07-11-2022 take 1 tablet by mouth at meal time Medrol 4 MG 1 tablet with food or milk Orally Jun, Active minocycline 100 mg oral capsule (8 sources) Tetracycline-class Drug Start: 12-08-2020 End: 10-25-2024 take 1 capsule by mouth twice daily Minocycline 100 mg capsule Discontinued 100 MG PO Twice daily December 08, 2020 12:00am October 25, 2024 12:53pm take 1 capsule by ne ut every twelve hours Minocycline HCl 100 MG 1 capsule Orally every 12 hrs Active montelukast 10 mg oral tablet (19 sources) Leukotriene Receptor Antagonist Start: 09-14-2017 End: 10-25-2024 take 1 tablet by mouth once daily Montelukast 10 tablet Discontinued 10 MG PO Daily September 13, 2017 11:00pm October 25, 2024 12:53pm naproxen 250 mg oral tablet (4 sources) Nonsteroidal Anti-inflammatory Drug Start: 12-08-2020 End: 12-13-2020 take 1 tablet by mouth twice daily Naproxen (Naprosyn) 250 mg Tablet Discontinued 250 MG PO Twice daily December 08, 2020 12:00am December 13, 2020 12:47pm Start: 09-14-2017 End: 05-03-2018 take 1 tablet by mouth twice daily at mealtime Naproxen (Naprosyn) 500 mg tablet Discontinued 500 MG PO Twice daily September 13, 2017 11:00pm May 03, 2018 7:00pm administer with food or milk nystatin [id number] unt/ml / triamcinolone acetonide 1 mg/ml topical cream (2 sources) Polyene Antifungal, Corticosteroid Start: 09-11-2018 End: 04-10-2019 Nystatin-Triamcinolone 100,000-0.1 unit/g-% cream Discontinued 1 APPLIC TOPICAL Twice daily September 10, 2018 11:00pm April 10, 2019 6:42am raNITIdine 150 mg oral tablet (2 sources) Histamine-2 Receptor Antagonist Start: 04-10-2019 End: 12-13-2020 take 1 tablet by mouth once daily Ranitidine Hcl 150 mg Tablet Discontinued 150 MG PO Daily April 09, 2019 11:00pm December 13, 2020 12:48pm rOPINIRole 1 mg oral tablet (2 sources) Nonergot Dopamine Agonist Start: 09-14-2017 End: 05-03-2018 Ropinirole 1 tablet Discontinued TABLET September 13, 2017 11:00pm May 03, 2018 7:00pm semaglutide (OZEMPIC) 1 mg/dose (4 mg/3 mL) pen injector (11 sources) Start: 10-10-2023 End: 02-04-2024 semaglutide (OZEMPIC) 1 mg/dose (4 mg/3 mL) pen injector Inject 1 mg under the skin every 7 days. 3 mL 6 10/10/2023 02/04/2024 Discontinued Start: 10-10-2023 semaglutide (O ZEMPIC) 1 mg/dose (4 mg/3 mL) pen injector Inject 1 mg under the skin every 7 days. 3 mL 6 10/10/2023 Active Problems Active Problems Problem Classification Problem Date Documented Date Episodic/Chronic Asthma (20 sources) Exacerbation of asthma; Translations: [Unspecified asthma with (acute) exacerbation] Onset: 07-19-2022 Resolved: 07-19-2022 Chronic Bacterial infection; unspecified site (1 source) Other specified bacterial agents as the cause of diseases classified elsewhere Episodic Coronary atherosclerosis and other heart disease (1 source) Arteriosclerotic vascular disease; Translations: [Atherosclerotic heart disease of [place] coronary artery without angina pectoris] 09-16-2024 Chronic Diabetes mellitus with complications (16 sources) Type 2 diabetes mellitus; Translations: [Type 2 diabetes mellitus with other specified complication] Onset: 02-24-2025 11-06-2023 Chronic Diabetes mellitus without complication (20 sources) Type 2 diabetes mellitus without complications; Translations: [Type 2 diabetes mellitus without complication] Onset: 10-11-2021 Chronic Esophageal disorders (18 sources) Gastroesophageal reflux disease; Translations: [Gastro-esophageal reflux disease without esophagitis] Onset: 07-19-2022 Resolved: 07-19-2022 Chronic Hypertension with complications and secondary hypertension (4 sources) Secondary hypertension; Translations: [Secondary hypertension, unspecified] 11-06-2023 Chronic Immunizations and screening for infectious disease (1 source) Contact with or exposure to other viral diseases; Translations: [Exposure to 2019 novel coronavirus] 07-16-2024 Episodic Joint disorders and dislocations; trauma-related (6 sources) Internal derangement of right knee; Translations: [Unspecified internal derangement of right knee] Chronic Osteoarthritis (14 sources) Osteoarthritis of knee; Translations: [Unilateral primary osteoarthritis, left knee] 03-23-2019 Chronic Other aftercare (1 source) Other dedicated intermodal truck driver (current) drug therapy; Translations: [OTH [place] PAINTER CURRENT DRUG THERAPY] Onset: 05-10-2022 Episodic Other connective tissue disease (3 sources) Pain in left foot; Translations: [PAIN IN LEFT FOOT] Onset: 05-06-2022 Episodic Other connective tissue disease (1 source) Calcaneal spur, left foot; Translations: [CALCANEAL SPUR LEFT FOOT] Onset: 05-10-2022 Episodic Other hereditary and degenerative nervous system conditions (17 sources) Restless legs; Translations: [Restless legs syndrome] Chronic Other hereditary and degenerative nervous system conditions (4 sources) Restless legs syndrome Onset: 05-01-2022 Resolved: 07-19-2022 Chronic Other nervous system disorders (17 sources) Chronic pain; Translations: [Other chronic pain] Chronic Other nervous system disorders (2 sources) Other chronic pain Onset: 04-13-2022 Resolved: 04-13-2022 Chronic Other non-traumatic joint disorders (2 sources) Shoulder pain Onset: 12-09-2024 Episodic Other nutritional; endocrine; and metabolic disorders (20 sources) Morbid obesity; Translations: [Morbid (severe) obesity due to excess calories] 02-28-2024 Chronic Other nutritional; endocrine; and metabolic disorders (3 sources) Morbid (severe) obesity due to excess calories; Translations: [MORBID SEVERE OBES D/T EXCESS FARTUN] Onset: 05-10-2022 Resolved: 07-19-2022 Chronic Other nutritional; endocrine; and metabolic disorders (1 source) Body mass index (BMI) 60.0-69.9, adult; Translations: [BODY MASS INDEX BMI 60.0-69.9 ADULT] Onset: 05-10-2022 Chronic Other nutritional; endocrine; and metabolic disorders (20 sources) Body mass index 40+ - severely obese; Translations: [Body mass index (BMI) 50.0-59.9, adult] Onset: 03-13-2023 03-13-2023 Chronic Other screening for suspected conditions (not mental disorders or infectious disease) (1 source) Other specified abnormal findings of blood chemistry; Translations: [OTH SPEC ABNORMAL FINDINGS BLD CHEM] Onset: 05-10-2022 Episodic Other upper respiratory infections (6 sources) Chronic sinusitis; Translations: [Chronic sinusitis, unspecified] Chronic Other upper respiratory infections (2 sources) Acute pharyngitis, unspecified; Translations: [Acute pharyngitis due to other specified organisms] Episodic Otitis media and related conditions (2 sources) Acute otitis media; Translations: [Otitis media, unspecified, unspecified ear] 10-25-2024 Episodic Residual codes; unclassified (20 sources) Obstructive sleep apnea syndrome; Translations: [Obstructive sleep apnea (adult) (pediatric)] 02-27-2024 Chronic Residual codes; unclassified (2 sources) Obstructive sleep apnea (adult) (pediatric); Translations: [Obstructive sleep apnea (adult) (pediatric)] Onset: 07-19-2022 Resolved: 07-19-2022 Chronic Spondylosis; intervertebral disc disorders; other back problems (20 sources) Lumbosacral spondylosis without myelopathy; Translations: [Spondylosis without myelopathy or radiculopathy, lumbosacral region] Onset: 04-13-2022 Resolved: 04-13-2022 Chronic Sprains and strains (7 sources) Strain of thoracic region; Translations: [Strain of muscle and tendon of back wall of thorax, initial encounter] Onset: 12-09-2024 07-30-2020 Episodic Substance-related disorders (1 source) Nicotine dependence, cigarettes, uncomplicated; Translations: [NICOTINE DEPEND CIGARETTES UNCOMP] Onset: 05-10-2022 Chronic Unclassified (1 source) Annual Exam Onset: 02-24-2025 Viral infection (3 sources) Disease caused by 2019-nCoV; Translations: [COVID-19] 07-16-2024 Episodic Past or Other Problems Problem Classification Problem Date Documented Da te Episodic/Chronic Administrative/social admission (1 source) Patient encounter status; Translations: [Other specified counseling] 02-28-2024 Episodic Mood disorders (20 sources) Mood disorders Onset: 09-24-2023 Resolved: 02-24-2025 09-24-2023 Mycoses (2 sources) Candidiasis of skin; Translations: [Candidiasis of skin and nail] 11-02-2023 Episodic Nausea and vomiting (2 sources) Nausea; Translations: [Nausea] 12-06-2023 Episodic Other connective tissue disease (1 source) Pain in unspecified foot; Translations: [PAIN IN UNSPECIFIED FOOT] Onset: 10-15-2021 Episodic Other non-traumatic joint disorders (20 sources) Pain in wrist; Translations: [Pain in unspecified wrist] Onset: 01-16-2023 01-16-2023 Episodic Other non-traumatic joint disorders (1 source) Unstable knee; Translations: [Other instability, unspecified knee] 06-18-2024 Episodic Spondylosis; intervertebral disc disorders; other back problems (20 sources) Low back pain; Translations: [Low back pain] Onset: 04-13-2022 Resolved: 07-11-2022 Episodic Unclassified (12 sources) Other low back pain; Translations: [Other low back pain] Unclassified (1 source) Other low back pain M54.59 Results Test Name Value Interpretation Reference Range Facility XR SHOULDER RT MIN 2 VWSon 0 12-09-2024 XR SHOULDER RT MIN 2 VWS XR SHOULDER RT MIN 2 VWS XR SHOULDER RT MIN 2 VWS INDICATION: pain c movement. Right shoulder pain FINDINGS: Partially visualized right chest is unremarkable. Satisfactory alignment of the right shoulder. No acute fracture or dislocation. There is mild sclerosis and spur formation at the acromioclavicular and glenohumeral joints. IMPRESSION: 1. No acute findings. 2. Mild degenerative changes right shoulder. Finalized by Daniel Figueroa MD on 12/09/2024 11:25 PM Normal [facility] No Panel InformationOrdered By: Jocelyn Nathan on 10-25-2024 Quick Strep (POC) [facility] Quick Strepon 03-05-2023 S. pyogenes Org specific cx Ql (Throat) Negative [facility]no[facility] Other Beryllium Other CBC AUTO DIFFon 05-06-2022 BASO # 0.1 103/ul Normal 0.0-0.1 [facility] Comment on above: Performed By: #### C RP, URIC #### [facility] [address] [place] [address] Dr. Cristobal Gómez Basophils/100 WBC (Bld) 1.2 % Normal 0.2-2.0 [facility] Comment on above: Performed By: #### C RP, URIC #### [facility] [address] [place] [address] Dr. Cristobal Gómez EO # 0.3 103/ul Normal 0.0-0.7 [facility] Comment on above: Performed By: #### C RP, URIC #### [facility] [address] [place] [address] Dr. Cristobal Gómez Eosinophils/100 WBC (Bld) 2.5 % Normal 0.9-7.0 [facility] Comment on above: Performed By: #### C RP, URIC #### [facility] [address] [place] [address] Dr. Cristobal Gómez Erythrocyte distribution width (RBC) [Ratio] 13.2 % Normal 11.0-15.0 [facility] Comment on above: Performed By: #### C RP, URIC #### [facility] [address] [place] [address] Dr. Cristobal Gómez Hematocrit (Bld) [Volume fraction] 41.1 % Critically low 42.0-54.0 [facility] Comment on above: Performed By: #### C RP, URIC #### [facility] [address] [place] [address] Dr. Cristobal Gómez Hemoglobin (Bld) [Mass/Vol] 14.3 g/dL Normal 14.0-18.0 [facility] Comment on above: Performed By: #### C RP, URIC #### [facility] [address] [place] [address] Dr. Cristobal Gómez IG # 0.05 10e3/ul Critically high 0.00-0.03 [facility] Comment on above: Performed By: #### C RP, URIC #### [facility] [address] [address] [address] Cristobal Gómez IG % 0.5 % Normal 0.0-0.5 [facility] Comment on above: Performed By: #### C RP, URIC #### [facility] [address] [address] [address] Cristobal Gómez LYMPH # 2.3 103/ul Normal 1.2-3.8 [facility] Comment on above: Performed By: #### C RP, URIC #### [facility] [address] [address] [address] Cristobal Gómez Lymphocytes/100 WBC (Bld) 22.3 % Normal 20.5-60.0 [facility] Comment on above: Performed By: #### C RP, URIC #### [facility] [address] [address] [address] Cristobal Gómez MANUAL DIFF REQ NO Normal [facility] Comment on above: Performed By: #### C RP, URIC #### [facility] [address] [address] [address] Cristobal Gómez MCH (RBC) [Entitic mass] 29.5 pg Normal 25.9-34.0 [facility] Comment on above: Performed By: #### C RP, URIC #### [facility] [address] [address] [address] Cristobal Gómez MCHC (RBC) [Mass/Vol] 34.8 g/dL Normal 29.9-35.2 [facility] Comment on above: Performed By: #### C RP, URIC #### [facility] [address] [address] [address] Cristobal Gómez MCV (RBC) [Entitic vol] 84.7 fL Normal 80.0-94.0 [facility] Comment on above: Performed By: #### C RP, URIC #### [facility] [address] [address] [address] Cristobal Gómez MONO # 0.8 103/ul Normal 0.3-0.8 [facility] Comment on above: Performed By: #### C RP, URIC #### [facility] [address] [place] [address] Dr. Cristobal Gómez Monocytes/100 WBC (Bld) 7.6 % Normal 1.7-12.0 [facility] Comment on above: Performed By: #### C RP, URIC #### [facility] [address] [place] [address] Dr. Cristobal Gómez NEUT # 6.7 103/ul Critically high 1.4-6.5 [facility] Comment on above: Performed By: #### C RP, URIC #### [facility] [address] [place] [address] Dr. Cristobal Gómez Neutrophils/100 WBC (Bld) 65.9 % Normal 43.0-75.0 [facility] Comment on above: Performed By: #### C RP, URIC #### [facility] [address] [place] [address] Dr. Cristobal Gómez Platelet mean volume (Bld) [Entitic vol] 10.8 fL Normal 9.5-13.5 [facility] Comment on above: Performed By: #### C RP, URIC #### [facility] [address] [place] [address] Dr. Cristobal Gómez PLT 249 103/ul Normal 150-450 [facility] Comment on above: Performed By: #### C RP, URIC #### [facility] [address] [place] [address] Dr. Cristobal Gómez RBC 4.85 106/ul Normal 4.70-6.10 [facility] Comment on above: Performed By: #### C RP, URIC #### [facility] [address] [place] [address] Dr. Cristobal Gómez WBC 10.1 103/ul Normal 4.0-11.0 [facility] Comment on above: Performed By: #### C RP, URIC #### [facility] [address] [place] [address] Dr. Cristobal Gómez CRPon 05-06-2022 CRP 1.3 mg/dL Critically high <=1.0 [facility] Comment on above: Performed By: #### C RP, URIC #### [facility] [address] [place] [address] Dr. Cristobal Gómez SED RATE WESTERGRENon 2021 SED RATE 27 mm/hr Critically high <=15 [facility] Comment on above: Performed By: #### C RP, URIC #### [facility] [address] [place] [address] Dr. Cristobal Gómez URIC ACID SERUMon 05-06-2022 Urate [Mass/Vol] 7.6 mg/dL Critically high 3.5-7.2 [facility] Comment on above: Performed By: #### C RP, URIC #### [facility] [address] [place] [address] Dr. Cristobal Gómez XR HEEL LT 2Von 05-06-2022 XR HEEL LT 2V EXAM: XR HEEL LT 2V - 05/06/2022 FINDINGS: Axial and lateral views for 2 views of the left calcaneus were obtained. HISTORY: Pain of left heel COMPARISON: None. IMPRESSION: 1. There is no acute fracture or dislocation. Small calcaneal enthesophyte at insertion site of Achilles tendon noted. 2. The alignment is satisfactory. No radiopaque foreign body noted. There is no soft tissue gas. Electronically authenticated by: MINDY TIANNA Date: 2022-05-06 14:34 Normal [facility] CBC AUTO DIFFon 10-11-2021 BASO # 0.1 103/ul Normal 0.0-0.1 [facility] Comment on above: Performed By: #### C BC #### [facility] [address] [place] [address] Dr. Cristobal Gómez Basophils/100 WBC (Bld) 1.0 % Normal 0.2-2.0 [facility] Comment on above: Performed By: #### C BC #### [facility] [address] [place] [address] Dr. Cristobal Gómez EO # 0.3 103/ul Normal 0.0-0.7 [facility] Comment on above: Performed By: #### C BC #### [facility] [address] [place] [address] Dr. Cristobal Gómez Eosinophils/100 WBC (Bld) 2.7 % Normal 0.9-7.0 [facility] Comment on above: Performed By: #### C BC #### [facility] [address] [place] [address] Dr. Cristobal Gómez Erythrocyte distribution width (RBC) [Ratio] 14.0 % Normal 11.0-15.0 [facility] Comment on above: Performed By: #### C BC #### [facility] [address] [place] [address] Dr. Cristobal Gómez Hematocrit (Bld) [Volume fraction] 43.4 % Normal 42.0-54.0 [facility] Comment on above: Performed By: #### C BC #### [facility] [address] [place] [address] Dr. Cristobal Gómez Hemoglobin (Bld) [Mass/Vol] 14.7 g/dL Normal 14.0-18.0 [facility] Comment on above: Performed By: #### C BC #### [facility] [address] [place] [address] Dr. Cristobal Gómez IG # 0.09 10e3/ul Critically high 0.00-0.03 [facility] Comment on above: Performed By: #### C BC #### [facility] [address] [place] [address] Dr. Cristobal Gómez IG % 0.8 % Critically high 0.0-0.5 [facility] Comment on above: Performed By: #### C BC #### [facility] [address] [place] [address] Dr. Cristobal Gómez LYMPH # 2.0 103/ul Normal 1.2-3.8 [facility] Comment on above: Performed By: #### C BC #### [facility] [address] [place] [address] Dr. Cristobal Gómez Lymphocytes/100 WBC (Bld) 17.2 % Critically low 20.5-60.0 [facility] Comment on above: Performed By: #### C BC #### [facility] [address] [place] [address] Dr. Cristobal Gómez MANUAL DIFF REQ NO Normal [facility] Comment on above: Performed By: #### C BC #### [facility] [address] [place] [address] Dr. Cristobal Gómez MCH (RBC) [Entitic mass] 30.0 pg Normal 25.9-34.0 [facility] Comment on above: Performed By: #### C BC #### [facility] [address] [place] [address] Dr. Cristobal Gómez MCHC (RBC) [Mass/Vol] 33.9 g/dL Normal 29.9-35.2 [facility] Comment on above: Performed By: #### C BC #### [facility] [address] [place] [address] Dr. Cristobal Gómez MCV (RBC) [Entitic vol] 88.6 fL Normal 80.0-94.0 [facility] Comment on above: Performed By: #### C BC #### [facility] [address] [place] [address] Dr. Cristobal Gómez MONO # 1.0 103/ul Critically high 0.3-0.8 [facility] Comment on above: Performed By: #### C BC #### [facility] [address] [place] [address] Dr. Cristobal Gómez Monocytes/100 WBC (Bld) 8.3 % Normal 1.7-12.0 [facility] Comment on above: Performed By: #### C BC #### [facility] [address] [place] [address] Dr. Cristobal Gómez NEUT # 8.1 103/ul Critically high 1.4-6.5 [facility] Comment on above: Performed By: #### C BC #### [facility] [address] [place] [address] Dr. Cristobal Gómez Neutrophils/100 WBC (Bld) 70.0 % Normal 43.0-75.0 [facility] Comment on above: Performed By: #### C BC #### [facility] [address] [address] [address] Cristobal Gómez Platelet mean volume (Bld) [Entitic vol] 11.6 fL Normal 9.5-13.5 [facility] Comment on above: Performed By: #### C BC #### [facility] [address] [address] [address] Cristobal Gómez PLT 239 103/ul Normal 150-450 [facility] Comment on above: Performed By: #### C BC #### [facility] [address] [address] [address] Cristobal Gómez RBC 4.90 106/ul Normal 4.70-6.10 [facility] Comment on above: Performed By: #### C BC #### [facility] [address] [address] [address] Cristobal Gómez WBC 11.5 103/ul Critically high 4.0-11.0 [facility] Comment on above: Performed By: #### C BC #### [facility] [address] [address] [address] Cristobal Gómez GLYCOHEMOGLOBIN A1Con 2020 ADA RECOMMENDATION ADA THERAPEUTIC TARGET 6.0 - 7.0 ACTION SUGGESTED > 7.0 Normal [facility] Comment on above: Performed By: #### A 1C #### [facility] [address] [address] [address] Cristobal Gómez Glucose [Mass/Vol] 134 mg/dL Normal [facility] Comment on above: Performed By: #### A 1C #### [facility] [address] [address] [address] Cristobal Gómez HbA1c (Bld) [Mass fraction] 6.3 % Critically high <=6.0 [facility] Comment on above: Performed By: #### A 1C #### [facility] [address] [place] [address] Dr. Cristobal Gómez LIPID PROFILEon 10-11-2021 CHOL-HDL RATIO NORM SEE BELOW Normal [facility] Comment on above: Result Comment: 3.3 - 4.4 LOW RISK 4.4 - 7.1 AVERAGE RISK 7.1 - 11.0 MODERATE RISK >11.0 HIGH RISK Performed By: #### U TAMMI, LIPID, CMP #### [facility] [address] [address] [address] Cristobal Gómez Cholesterol [Mass/Vol] 202 mg/dL Critically high <=200 [facility] Comment on above: Performed By: #### U TAMMI, LIPID, CMP #### [facility] [address] [address] [address] Cristobal Gómez Cholesterol in HDL [Mass/Vol] 32 mg/dL Normal [facility] Comment on above: Performed By: #### U TAMMI, LIPID, CMP #### [facility] [address] [address] [address] Cristobal Gómez Cholesterol in LDL [Mass/Vol] 136.4 mg/dL Normal [facility] Comment on above: Performed By: #### U TAMMI, LIPID, CMP #### [facility] [address] [address] [address] Cristobal Gómez Cholesterol.total/Chol esterol in HDL [Mass ratio] 6.3 {ratio} Normal [facility] Comment on above: Performed By: #### U TAMMI, LIPID, CMP #### [facility] [address] [address] [address] Cristobal Gómez HDL NORMAL > or = 60 mg/dl - LOW CARDIOVASCULAR RISK <40 mg/dl - HIGH CARDIOVASCULAR RISK Normal [facility] Comment on above: Performed By: #### U TAMMI, LIPID, CMP #### [facility] [address] [address] [address] Cristobal Gómez LDL CALC NORMAL SEE BELOW Normal [facility] Comment on above: Result Comment: <100 mg/dl OPTIMAL 100 - 129 mg/dl NEAR OR ABOVE OPTIMAL 130 - 159 mg/dl BORDERLINE HIGH 160 - 189 mg/dl HIGH >190 mg/dl VERY HIGH Performed By: #### U TAMMI, LIPID, CMP #### [facility] [address] [address] [address] Cristobal Gómez Triglyceride [Mass/Vol] 168 mg/dL Critically high <=150 [facility] Comment on above: Performed By: #### U TAMMI, LIPID, CMP #### [facility] [address] [address] [address] Cristobal Gómez VLDL CALC 33.6 mg/dL Normal [facility] Comment on above: Performed By: #### U TAMMI, LIPID, CMP #### [facility] [address] [address] [address] Cristobal Gómez MICROALBUMIN, RAND URon 3 mALB <1.3 Normal <=30.0 [facility] Comment on above: Performed By: #### M ALBR #### [facility] [address] [address] [address] Cristobal Gómez PROF 14(COMP METB)on 021 Albumin [Mass/Vol] 3.3 g/dL Critically low 3.5-5.0 [facility] Comment on above: Performed By: #### U TAMMI, LIPID, CMP #### [facility] [address] [address] [address] Cristobal Gómez Albumin/Globulin [Mass ratio] 0.8 {ratio} Normal [facility] Comment on above: Performed By: #### U TAMMI, LIPID, CMP #### [facility] [address] [address] [address] Cristobal Gómez ALP [Catalytic activity/Vol] 121 U/L Normal 38-126 [facility] Comment on above: Performed By: #### U TAMMI, LIPID, CMP #### [facility] [address] [address] [address] Cristobal Gómez ALT [Catalytic activity/Vol] 42 U/L Normal 21-72 [facility] Comment on above: Performed By: #### U TAMMI, LIPID, CMP #### [facility] [address] [address] [address] Cristobal Gómez Anion gap [Moles/Vol] 14.1 mmol/L Normal [facility] Comment on above: Performed By: #### U TAMMI, LIPID, CMP #### [facility] [address] [address] [address] Cristobal Gómez AST [Catalytic activity/Vol] 27 U/L Normal 17-59 [facility] Comment on above: Performed By: #### U TAMMI, LIPID, CMP #### [facility] [address] [address] [address] Cristobal Gómez Bilirubin [Mass/Vol] 0.8 mg/dL Normal 0.2-1.3 [facility] Comment on above: Performed By: #### U TAMMI, LIPID, CMP #### [facility] [address] [address] [address] Cristobal Gómez Calcium [Mass/Vol] 9.4 mg/dL Normal 8.4-10.2 [facility] Comment on above: Performed By: #### U TAMMI, LIPID, CMP #### [facility] [address] [place] [address] Dr. Cristobal Gómez Chloride [Moles/Vol] 105 mmol/L Normal 98-107 [facility] Comment on above: Performed By: #### U TAMMI, LIPID, CMP #### [facility] [address] [place] [address] Dr. Cristobal Gómez CO2 [Moles/Vol] 24.1 mmol/L Normal 22.0-30.0 [facility] Comment on above: Performed By: #### U TAMMI, LIPID, CMP #### [facility] [address] [place] [address] Dr. Cristobal Gómez Creatinine [Mass/Vol] 0.72 mg/dL Normal 0.66-1.25 [facility] Comment on above: Performed By: #### U TAMMI, LIPID, CMP #### [facility] [address] [place] [address] Dr. Cristobal Gómez EGFR-AF MONEGASQUE >60 Normal >=[address] [facility] Comment on above: Performed By: #### U TAMMI, LIPID, CMP #### [facility] [address] [place] [address] Dr. Cristobal Gómez EGFR-NON AF MONEGASQUE >60 Normal >=60 [facility] Comment on above: Performed By: #### U TAMMI, LIPID, CMP #### [facility] [address] [place] [address] Dr. Cristobal Gómez Globulin (S) [Mass/Vol] 4.4 g/dL Normal [facility] Comment on above: Performed By: #### U TAMMI, LIPID, CMP #### [facility] [address] [address] [address] Cristobal Gómez Glucose [Mass/Vol] 172 mg/dL Critically high 74-[address] [facility] Comment on above: Performed By: #### U TAMMI, LIPID, CMP #### [facility] [address] [address] [address] Cristobal Gómez Potassium [Moles/Vol] 4.2 mmol/L Normal 3.4-5.0 [facility] Comment on above: Performed By: #### U TAMMI, LIPID, CMP #### [facility] [address] [place] [address] Dr. Cristobal Gómez Protein [Mass/Vol] 7.7 g/dL Normal 6.1-8.2 [facility] Comment on above: Performed By: #### U TAMMI, LIPID, CMP #### [facility] [address] [place] [address] Dr. Cristobal Gómez Sodium [Moles/Vol] 139 mmol/L Normal 137-145 [facility] Comment on above: Performed By: #### U TAMMI, LIPID, CMP #### [facility] [address] [place] [address] Dr. Cristobal Gómez Urea nitrogen [Mass/Vol] 9.0 mg/dL Normal 9.0-20.0 [facility] Comment on above: Performed By: #### U TAMMI, LIPID, CMP #### [facility] [address] [place] [address] Dr. Cristobal Gómez Urea nitrogen/Creatinine [Mass ratio] 12.5 mg/mg Normal [facility] Comment on above: Performed By: #### U TAMMI, LIPID, CMP #### [facility] [address] [place] [address] Dr. Cristobal Gómez UA RANDOM W/MICROSCOPICon BACTERIA NONE SEEN Normal NONE SEEN [facility] Comment on above: Performed By: #### U AMIC #### [facility] [address] [place] [address] Dr. Cristobal Gómez Bilirubin Ql (U) Negative Normal NEGATIVE [facility] Comment on above: Performed By: #### U AMIC #### [facility] [address] [place] [address] Dr. Cristobal Gómez CAST NONE SEEN Normal NONE SEEN [facility] Comment on above: Performed By: #### U AMIC #### [facility] [address] [address] [address] Cristobal Gómez Clarity (U) CLEAR Normal CLEAR [facility] Comment on above: Performed By: #### U AMIC #### [facility] [address] [place] [address] Dr. Cristobal Gómez Color (U) YELLOW Normal YELLOW [facility] Comment on above: Performed By: #### U AMIC #### [facility] [address] [place] [address] Dr. Cristobal Gómez Crystals LM Nom (Urine sed) NONE SEEN Normal NONE SEEN [facility] Comment on above: Performed By: #### U AMIC #### [facility] [address] [place] [address] Dr. Cristobal Gómez Epithelial cells LM Ql (Urine sed) FEW Abnormal NONE SEEN /RARE [facility] Comment on above: Performed By: #### U AMIC #### [facility] [address] [place] [address] Dr. Cristobal Gómez Glucose Ql (U) Negative Normal NEGATIVE [facility] Comment on above: Performed By: #### U AMIC #### [facility] [address] [address] [address] Cristobal Gómez Hemoglobin Ql (U) TRACE-INTACT Abnormal NEGATIVE [facility] Comment on above: Performed By: #### U AMIC #### [facility] [address] [place] [address] Dr. Cristobal Gómez Ketones Ql (U) Negative Normal NEGATIVE [facility] Comment on above: Performed By: #### U AMIC #### [facility] [address] [place] [address] Dr. Cristobal Gómez LEUKOCYTES Negative Normal NEGATIVE [facility] Comment on above: Performed By: #### U AMIC #### [facility] [address] [place] [address] Dr. Cristobal Gómez MUCOUS SMALL Abnormal NONE SEEN [facility] Comment on above: Performed By: #### U AMIC #### [facility] [address] [place] [address] Dr. Cristobal Gómez Nitrite Ql (U) Negative Normal NEGATIVE [facility] Comment on above: Performed By: #### U AMIC #### [facility] [address] [place] [address] Dr. Cristobal Gómez pH (U) 5.0 [pH] Normal 5-9 [facility] Comment on above: Performed By: #### U AMIC #### [facility] [address] [place] [address] Dr. Cristobal Gómez RBC 0-2 Normal 0-2 [facility] Comment on above: Performed By: #### U AMIC #### [facility] [address] [place] [address] Dr. Cristobal Gómez SPEC GRAVITY >=1.030 Abnormal 1.005-<=1.02 5 [facility] Comment on above: Performed By: #### U AMIC #### [facility] [address] [place] [address] Dr. Cristobal Gómez UA PROTEIN Negative Normal NEGATIVE/ TRACE [facility] Comment on above: Performed By: #### U AMIC #### [facility] [address] [place] [address] Dr. Cristobal Gómez Urobilinogen Qn (U) 0.2 {Lalitha'U}/dL Normal 0.2 - 1. 0 [facility] Comment on above: Performed By: #### U AMIC #### [facility] [address] [place] [address] Dr. Cristobal Gómez WBC NONE SEEN Normal NONE SEEN [facility] Comment on above: Performed By: #### U AMIC #### [facility] [address] [place] [address] Dr. Cristobal Gómez URIC ACID SERUMon 10-11-2021 Urate [Mass/Vol] 8.0 mg/dL Normal 3.5-8.[address] [facility] Comment on above: Performed By: #### U TAMMI, LIPID, CMP #### [facility] [address] [address] [address] Cristobal Gómez MRI LUMBAR SPINE WO IVCONon 07-01-2021 MRI LUMBAR SPINE WO IVCON * * *Final Report* * * DATE OF EXAM: Jul 01 2021 12:26PM [facility] 0303 - MRI LUMBAR SPINE WO IVCON / PROCEDURE REASON: M47.28 * * * * Physician Interpretation * * * * EXAMINATION: MRI LUMBAR SPINE WO IVCON CLINICAL HISTORY: Back pain TECHNIQUE: Routine lumbosacral spine MR protocol without gadolinium. MQ: [id number] COMPARISON: None. RESULT: Counting reference: Lumbosacral junction. For the purposes of this report, L4-5 is considered the level of the iliac crest and assume there are 5 lumbar-type vertebrae. Anatomic variant: None. Localizer images: No additional findings. Alignment: Alignment is anatomic. There is congenital narrowing the central canal, likely on the basis of shortened pedicles, which can accentuate any acquired stenosis. Bone marrow signal/fracture: No evidence of pathologic marrow infiltration. No evidence of prior fracture. Is incidental note of multiple likely hemangiomas, the largest in L4, without expansion or destruction, no other suspicious features. There are endplate irregularities including Schmorl's nodes, greatest at L2 and L3. There is no subjacent edema to suggest any recent acuity. Conus: Incidental note of a fatty filum, with a diameter of about 2 mm. There are no suspicious features, there is no tethering of the cord, there is no dysraphism. Conus is within normal limits of signal intensity and morphology. Paraspinal soft tissues: Paraspinal soft tissues are within normal limits. Lower thoracic spine: Visualized lower thoracic canal and foramina are patent. T12-L1: Canal and foramina are patent. L1-L2: Canal and foramina are patent. L2-L3: Canal and foramina are patent L3-L4: Mild central narrowing on a congenital basis, with moderate right and mild-moderate left foraminal narrowing L4-L5: Mild central narrowing on a congenital basis, with mild bilateral foraminal narrowing L5-S1: Canal and foraminal are patent Sacrum and iliac wings: The visualized sacrum and iliac wings are within normal limits. IMPRESSION: 1. MILD DEGENERATIVE CHANGES, WITHOUT SIGNIFICANT CENTRAL OR FORAMINAL NARROWING 2. INCIDENTAL NOTE OF A SIMPLE FATTY FILUM, WITHOUT SUSPICIOUS FEATURES Anatomic Thoracic/Lumbar Variant: None. L4-5 is considered the level of the iliac crest and assume there are 5 lumbar-type vertebrae. Accounting Office Manager: [employer]AL[employer] Transcribe Date/Time: Jul 01 2021 1:50P Dictated by : GILLIAN AYON MD This examination was interpreted and the report reviewed and electronically signed by: GILLIAN AYON MD on Jul 01 2021 1:57PM EST [id number] CN Normal [facility] No Panel Informationon 07-01 [facility] Formson 07-13-2020 Forms [id number]# 1.00CD:127 Normal [facility] Ambulatory Clinical Summaryo n 07-12-2020 Ambulatory Clinical Summary {[id number] Normal [facility] ED Note-Physicianon 07-12-20 ED Note-Physician [id number] #1.00CD:127 Normal [facility] Patient Educationon 07-12-20 Patient Education Family [facility] Urinary Frequency The number of times a normal person urinates depends upon how much liquid they take in and how much liquid they are losing. If the temperature is hot and there is high humidity then the person will sweat more and usually breathe a little more frequently. These factors decrease the amount of frequency of urination that would be considered normal. The amount you drink is easily determined, but the amount of fluid lost is sometimes more difficult to calculate. Fluid is lost in two ways: ? Sensible fluid loss is usually measured by the amount of urine that you get rid of. Losses of fluid can also occur with diarrhea. ? Insensible fluid loss is more difficult to measure. It is caused by evaporation. Insensible loss of fluid occurs through breathing and sweating. It usually ranges from a little less than a quart to a little more than a quart of fluid a day. In normal temperatures and activity levels the average person may urinate 4 to 7 times in a 24-hour period. Needing to urinate more often than that could indicate a problem. If one urinates 4 to 7 times in 24 hours and has large volumes each time, that could indicate a different problem from one who urinates 4 to 7 times a day and has small volumes. The time of urinating is also an important. Most urinating should be done during the waking hours. Getting up at night to urinate frequently can indicate some problems. CAUSES The bladder is the organ in your lower abdomen that holds urine. Like a balloon, it swells some as it fills up. Your nerves sense this and tell you it is time to head for the bathroom. There are a number of reasons that you might feel the need to urinate more often than usual. They include: ? Urinary tract infection. This is usually associated with other signs such as burning when you urinate. ? In men, problems with the prostate (a walnut-size gland that is located near the tube that carries urine out of your body). There are two reasons why the prostate can cause an increased frequency of urination: ? An enlarged prostate that does not let the bladder empty well. If the bladder only half empties when you urinate then it only has half the capacity to fill before you have to urinate again. ? The nerves in the bladder become more hypersensitive with an increased size of the prostate even if the bladder empties completely. ? . ? Obesity. Excess weight is more likely to cause a problem for women more than for men. ? Bladder stones or other bladder problems. ? Caffeine. ? Alcohol. ? Medications. For example, drugs that help the body get rid of extra fluid (diuretics ) increase urine production. Some other medicines must be taken with lots of fluids. ? Muscle or nerve weakness. This might be the result of a spinal cord injury, a stroke, multiple sclerosis or Parkinson's disease. ? Long-standing diabetes can decrease the sensation of the bladder. This loss of sensation makes it harder to sense the bladder needs to be emptied. Over a period of years the bladder is stretched out by constant overfilling. This weakens the bladder muscles so that the bladder does not empty well and has less capacity to fill with new urine. ? Interstitial cystitis (also called painful bladder syndrome). This condition develops because the tissues that line the insider of the bladder are inflamed (inflammation is the body's way of reacting to injury or infection). It causes pain and frequent urination. It occurs in women more often than in men. DIAGNOSIS ? To decide what might be causing your urinary frequency, your healthcare provider will probably: ? Ask about symptoms you have noticed. ? Ask about your overall health. This will include questions about any medications you are taking. ? Do a physical examination. ? Order some tests. These might include: ? A blood test to check for diabetes or other health issues that could be contributing to the problem. ? Urine testing. This could measure the flow of urine and the pressure on the bladder. ? A test of your neurological system (the brain, spinal cord and nerves). This is the system that senses the need to urinate. ? A bladder test to check whether it is emptying completely when you urinate. ? Cytoscopy. This test uses a thin tube with a tiny camera on it. It offers a look inside your urethra and bladder to see if there are problems. ? Imaging tests. You might be given a contrast dye and then asked to urinate. X-rays are taken to see how your bladder is working. TREATMENT It is important for you to be evaluated to determine if the amount or frequency that you have is unusual or abnormal. If it is found to be abnormal the cause should be determined and this can usually be found out easily. Depending upon the cause treatment could include medication, stimulation of the nerves, or surgery. There are not too many things that you can do as an individual to change your urinary frequency. It is important that you balance the amount of fluid intake needed to compensate for your activity and the temperature. Medical problems will be diagnosed and taken care of by your physician. There is no particular bladder training such as Kegel's exercises that you can do to help urinary frequency. This is an exercise this is usually done for people who have leaking of urine when they laugh cough or sneeze. HOME CARE INSTRUCTIONS ? Take any medications your healthcare provider prescribed or suggested. Follow the directions carefully. ? Practice any lifestyle changes that are recommended. These might include: ? Drinking less fluid or drinking at different times of the day. If you need to urinate often during the night, for example, you may need to stop drinking fluids early in the evening. ? Cutting down on caffeine or alcohol. They both can make you need to urinate more often than normal. Caffeine is found in coffee, tea and sodas. ? Losing weight, if that is recommended. ? Keep a journal or a log. You might be asked to record how much you drink and when and when you feel the need to urinate. This will also help evaluate how well the treatment provided by your physician is working. SEEK MEDICAL CARE IF: ? Your need to urinate often gets worse. ? You feel increased pain or irritation when you urinate. ? You notice blood in your urine. ? You have questions about any medications that your healthcare provider recommended. ? You notice blood, pus or swelling at the site of any test or treatment procedure. ? You develop a fever of more than 100.5? F (38.1? C). SEEK IMMEDIATE MEDICAL CARE IF: You develop a fever of more than 102.0? F (38.9? C). Document Released: 08/25/2010 Document Revised: 01/20/2013 Document Reviewed: 08/25/2010 ExitCare? Patient Information ?2013 [employer] [facility] Urology Office/Clinic Noteon 07-12-2020 Urology Office/Clinic Note Chief Complaint New Patient, here for recurrent cyst in groin. HPI Staff New Patient. Patient is here today due to a recurrent cysts in groin. cyst that he had drained out on Sunday. The discharge was a pinkish color. Patient states he still has swelling. Patient was not able to give urine sample today. Dysuria: denies any pain or burning Incomplete bladder emptying: patient has a overactive bladder Hematuria: denies visible blood Frequency: moderate intermittent goes 7 times per day Urgency: yes Nocturia: mild intermittent goes 2 times per day Stream: denies delay, no weak stream, no start/stop Leaking: yes Post void dripping: no Wearing pads/ Depends: no Urge incontinence: no Stress incontinence: no Incontinence without Sensory Awareness: no Abdominal pain: no Flank pain: no Sexual complaints: no groin pain:patient does not right now because the pressure is gone from the cyst. Testicle Pain:no History of Present Illness I have reviewed and verified the staff HPI to be accurate for this encounter. Review of Systems PHQ Score Initial Depression Screen Score: 0 ROS - Provider Constitutional: denies weight loss, denies hot flashes. Eyes: denies eye problems. Gastrointestinal: denies nausea, denies vomiting. Cardiovascular: denies chest pain or angina. Integumentary: no dryness Musculoskeletal: denies musculoskeletal symptoms. ENMT: denies otolaryngeal symptoms. Respiratory: no shortness of breath. Heme/Lymph: denies easy bleeding tendency, denies easy bruising tendency. Psychiatric: no confusion, no anxiety. Genitourinary: denies dysuria, denies hematuria, denies discharge, mild urinary frequency, denies urinary hesitancy, mild nocturia, denies incontinence, denies genital sores, denies decreased libido, and denies erectile dysfunction. Physical Exam Vitals & Measurements RR: 16 HT: 184.0 cm HT: 184 cm WT: 231.0 kg WT: 231 kg BMI: 68.23 General Appearance: alert, no distress, well nourished, well developed male. Genitourinary: abnormal scrotum, scrotal cyst noted, normal testes, normal urethra, normal epididymis, normal vas deferens/spermatic cord. Assessment/Plan 1. Scrotal cyst (L72.9: Follicular cyst of the skin and subcutaneous tissue, unspecified) Recurrent. Drained this past Sunday. 2. Frequency of urination (R35.0: Frequency of micturition) 7x/day 3. Nocturia (R35.1: Nocturia) 2x/night Morbid obesity (E66.01: Morbid (severe) obesity due to excess calories) BMI 68.23 Smoker (F17.200: Nicotine dependence, unspecified, uncomplicated) While this patient has a scrotal cyst that was drained fortunately I&D to the ER notes drain dialysis stopped draining healing well but he is 500 pounds a huge pannus TAVR getting his knee done very well do it on the right-hand side but she is under 400 pounds I told him I would not do it lessers under 300 pounds. Is always a possibility of gastric bypass he said he was not interested he said his mother had it done and did not do well. So I know I said well he said he is lost 40 pounds he was 560 on time so hopefully he will continue to lose weight and I said you are scrotal problems will barrington soon his weight comes off over the next year or 2 or 3 Documentation recorded by the Radha barber, accurately reflects the services(s) I performed and decisions made by me. Authenticated by Dr. Mak on 07/12/2020 15:01:39. Follow-up With When Contact Information AMERICA KOENIG, Cuauhtemoc Escamilla [address] [facility] [place] [id number]- Additional Instructions: PRN Patient Education Urinary Frequency Problem List/Past Medical History Ongoing Arthritis Asthma Historical No qualifying data Medications albuterol 0.083% Inh Janessa 3 mL, NEB, q6hr albuterol HFA 90 mcg/inh MDI, 2 puff(s), Inhalation, As Directed cetirizine 10 mg Tab, 10 mg= 1 tab(s), Oral, Daily Dulera 200 mcg-5 mcg/inh inhalation aerosol, 2 puff(s), Inhalation, BID ibuprofen 800 mg Tab, 800 mg= 1 tab(s), Oral, TID minocycline 100 mg Cap, 100 mg= 1 cap(s), Oral, q12hr montelukast 10 mg Tab, 10 mg= 1 tab(s), Oral, Daily Allergies amoxicillin (Hives) clindamycin (Respiratory failure) Social History Tobacco 10 or more cigarettes (1/2 pack or more)/day in last 30 days Tobacco Use:. Cigarettes, Yes, 07/12/2020 Family History Alcoholism: Father. Diabetes mellitus type 2: Mother. Hypertension: Mother. Stroke: Mother. [facility] Comment on above: Result Comment: Elec tronically Signed By: Cuauhtemoc MAK MD\.br\Date and Time Signed: 07/12/20 15:01 EDT\.br\Electronically Co-Signed By: Radha Carver MA\.br\Date and Time Co-Signed: 07/12/20 14:58 EDT Vital Signs Date Time Vital Sign Value Performing Clinician Facility 02-24-2025 14:13 Body height 182.9 cm Lo Toscano MD Work Phone: [facility] 02-24-2025 14:13-0400 Body mass index (BMI) [Ratio] 60.3 kg/m2 Lo Toscano MD Work Phone: [facility] 02-24-2025 14:13-0400 Body temperature 98.6 [degF] Lo Toscano MD Work Phone: [facility] 02-24-2025 14:13-0400 Body weight 201.67 kg Lo Toscano MD Work Phone: [facility] 02-24-2025 14:13-0400 Diastolic blood pressure 88 mm[Hg] Lo Toscano MD Work Phone: [facility] 02-24-2025 14:13-0400 Heart rate 94 /min Lo Toscano MD Work Phone: [facility] 02-24-2025 14:13-0400 SaO2% (BldA) [Mass fraction] 98 % Lo Toscano MD Work Phone: [facility] 02-24-2025 14:13-0400 Systolic blood pressure 142 mm[Hg] Lo Toscano MD Work Phone: [facility] 12-05-2024 13:26-0500 Body height 182.88 cm [facility] 12-05-2024 13:26-0500 Body mass index (BMI) [Ratio] 59.3 kg/m2 [facility] 12-05-2024 13:26-0500 Body temperature 96.4 [degF] [facility] 12-05-2024 13:26-0500 Body weight 198.27 kg [facility] 12-05-2024 13:26-0500 Diastolic blood pressure 90 mm[Hg] [facility] 12-05-2024 13:26-0500 Heart rate 93 /min [facility] 12-05-2024 13:26-0500 Respiratory rate 20 /min [facility] 12-05-2024 13:26-0500 SaO2% (BldA) [Mass fraction] 98 % [facility] 12-05-2024 13:26-0500 Systolic blood pressure 133 mm[Hg] [facility] 10-25-2024 12:47-0500 Body height 182.88 cm [facility] 10-25-2024 12:47-0500 Body mass index (BMI) [Ratio] 59.4 kg/m2 [facility] 10-25-2024 12:47-0500 Body temperature 99.1 [degF] [facility] 10-25-2024 12:47-0500 Body weight 198.9 kg [facility] 10-25-2024 12:47-0500 Diastolic blood pressure 75 mm[Hg] [facility] 10-25-2024 12:47-0500 Heart rate 98 /min [facility] 10-25-2024 12:47-0500 Respiratory rate 20 /min [facility] 10-25-2024 12:47-0500 SaO2% (BldA) [Mass fraction] 98 % [facility] 10-25-2024 12:47-0500 Systolic blood pressure 135 mm[Hg] [facility] 07-16-2024 11:29-0400 Body height 182.88 cm [facility] 07-16-2024 11:29-0400 Body mass index (BMI) [Ratio] 57.3 kg/m2 [facility] 07-16-2024 11:29-0400 Body temperature 97.5 [degF] [facility] 07-16-2024 11:29-0400 Body weight 191.64 kg [facility] 07-16-2024 11:29-0400 Diastolic blood pressure 89 mm[Hg] [facility] 07-16-2024 11:29-0400 Heart rate 90 /min [facility] 07-16-2024 11:29-0400 Respiratory rate 18 /min [facility] 07-16-2024 11:29-0400 SaO2% (BldA) [Mass fraction] 98 % [facility] 07-16-2024 11:29-0400 Systolic blood pressure 133 mm[Hg] [facility] 02-27-2024 13:59-0400 Body height 182.9 cm Julissa CROCKER Work Phone: [facility] [employer] [facility] 02-27-2024 13:59-0400 Body mass index (BMI) [Ratio] 59.06 kg/m2 Julissa Macias VEGETABLE WASHER-PERCUSSION INSTRUMENT REPAIRER Work Phone: [facility] 02-27-2024 13:59-0400 Body weight 197.59 kg Julissa Macias VEGETABLE WASHER-PERCUSSION INSTRUMENT REPAIRER Work Phone: [facility] 02-27-2024 13:59-0400 Diastolic blood pressure 117 mm[Hg] Julissa Macias VEGETABLE WASHER-PERCUSSION INSTRUMENT REPAIRER Work Phone: [facility] 02-27-2024 13:59-0400 Heart rate 92 /min Julissa Macias VEGETABLE WASHER-PERCUSSION INSTRUMENT REPAIRER Work Phone: [facility] 02-27-2024 13:59-0400 SaO2% (BldA) [Mass fraction] 96 % Julissa Macias VEGETABLE WASHER-PERCUSSION INSTRUMENT REPAIRER Work Phone: [facility] 02-27-2024 13:59-0400 Systolic blood pressure 156 mm[Hg] Julissa Macias VEGETABLE WASHER-PERCUSSION INSTRUMENT REPAIRER Work Phone: [facility] 03-05-2023 10:00-0400 Body height 177.8 cm Aleida Porter Other [facility] Other 03-05-2023 10:00-0400 Body mass index (BMI) [Ratio] 63.84 kg/m2 Aleida Porter Other [facility] Other 03-05-2023 10:00-0400 Body temperature 96.6 [degF] Aleida Porter Other [facility] Other 03-05-2023 10:00-0400 Body weight 201.85 kg Aleida Porter Other [facility] Other 03-05-2023 10:00-0400 Respiratory rate 18 /min Aleida Porter Other [facility] Other 03-05-2023 10:00-0400 SaO2% (BldA) [Mass fraction] 98 % Aleida Porter Other [facility] Other 07-19-2022 10:00-0400 Body height 177.8 cm Lucinda Rehan Other [facility] Other 07-19-2022 10:00-0400 Body mass index (BMI) [Ratio] 65.71 kg/m2 Lucinda Rehan Other [facility] Other 07-19-2022 10:00-0400 Body temperature 97.4 [degF] Lucinda Rehan Other [facility] Other 07-19-2022 10:00-0400 Body weight 207.75 kg Lucinda Rehan Other [facility] Other 07-19-2022 10:00-0400 Diastolic blood pressure 97 mm[Hg] Lucinda Rehan Other [facility] Other 07-19-2022 10:00-0400 Respiratory rate 20 /min Lucinda Rehan Other [facility] Other 07-19-2022 10:00-0400 SaO2% (BldA) [Mass fraction] 100 % Lucinda Rehan Other [facility] Other 07-19-2022 10:00-0400 Systolic blood pressure 159 mm[Hg] Lucinda Rehan Other [facility] Other 04-13-2022 12:15-0400 Body height 177.8 cm Emery Cook Other [facility] [employer] Other Encounters Encounter Date Encounter Type Care Provider Facility Start: 04-18-2025 End: 04-20-2025 Refill Julissa Macias VEGETABLE WASHER-PERCUSSION INSTRUMENT REPAIRER Work Phone: [facility] Comment on above: Moderate persistent reactive airway disease with acute exacerbation Start: 04-13-2025 End: 04-13-2025 Orders Only Lo Toscano MD Work Phone: [facility] Start: 04-07-2025 End: 04-14-2025 Telephone encounter Ruth Reina CNA [facility] Comment on above: Medication Start: 03-19-2025 End: 03-19-2025 Orders Only Lo Toscano MD Work Phone: [facility] Comment on above: Moderate persistent reactive airway disease with acute exacerbation Start: 03-13-2025 End: 03-13-2025 Office outpatient visit 15 minutes Lo Toscano MD Work Phone: [facility] Comment on above: Moderate persistent reactive airway disease with acute exacerbation (Primary Dx); PAULA (obstructive sleep apnea); Moderate persistent asthma with exacerbation Start: 03-13-2025 End: 03-13-2025 ambulatory LO TOSCANO [facility] Start: 03-11-2025 End: 03-11-2025 Orders Only Tomas Lockwood DO [facility] Start: 03-10-2025 End: 03-10-2025 Telephone encounter Ruth Reina CNA [facility] Start: 02-27-2025 End: 03-05-2025 Telephone encounter Shazia Persaud CMA [facility] Start: 02-24-2025 End: 02-24-2025 Patient encounter procedure Lo Toscano MD Work Phone: [facility] Comment on above: Type 2 diabetes jer itus with other specified complication, without long-term current use of insulin ([facility]) (Primary Dx); Obesity, morbid, BMI 50 or higher ([facility]); PAULA (obstructive sleep apnea); Controlled type 2 diabetes mellitus without complication, without long-term current use of insulin ([facility]) Start: 02-24-2025 End: 02-24-2025 ambulatory [facility] Start: 01-02-2025 End: 01-05-2025 Refill Julissa Macias VEGETABLE WASHER-PERCUSSION INSTRUMENT REPAIRER [facility] Start: 12-09-2024 End: 12-10-2024 Emergency department patient visit [facility] Start: 12-05-2024 End: 12-05-2024 ambulatory [facility] Work Phone: Start: 12-05-2024 End: 12-05-2024 Patient encounter procedure [facility] Work Phone: Start: 11-25-2024 End: 11-26-2024 Refill Lo Toscano MD Work Phone: [facility] Start: 10-25-2024 End: 10-25-2024 Patient encounter procedure [facility] Work Phone: Start: 10-18-2024 End: 10-19-2024 Refill Lo Toscano MD Work Phone: [facility] Comment on above: Controlled type 2 di abetes mellitus without complication, without long-term current use of insulin ([facility]); Type 2 diabetes mellitus with other specified complication, without long-term current use of insulin ([facility]); Secondary hypertension Start: 09-16-2024 End: 09-17-2024 Refill Lo Toscano MD Work Phone: [facility] Comment on above: ASCVD (arteriosclero tic cardiovascular disease) Start: 09-12-2024 End: 09-12-2024 Orders Only Lisbeth Shaffer VEGETABLE WASHER-PERCUSSION INSTRUMENT REPAIRER Work Phone: [facility] Comment on above: Candidal dermatitis Start: 08-26-2024 End: 08-26-2024 Telephone encounter [facility] Start: 08-06-2024 End: 08-08-2024 Refill Lo Toscano MD Work Phone: [facility] Comment on above: BMI 60.0-69.9, adult ([facility]) Start: 08-01-2024 End: 08-05-2024 Refill Lo Toscano MD Work Phone: [facility] Comment on above: BMI 60.0-69.9, adult ([facility]) Start: 07-16-2024 End: 07-16-2024 ambulatory Jessica TOVAR [facility] Work Phone: Comment on above: Moderate persistent reactive airway disease with acute exacerbation (Primary Dx); Asthma, unspecified asthma severity, unspecified whether complicated, unspecified whether persistent Start: 07-16-2024 End: 07-16-2024 Patient encounter procedure [facility] Work Phone: Start: 06-23-2024 End: 06-23-2024 Refill Tanya Leiva CMA [facility] Comment on above: Type 2 diabetes jer itus with other specified complication, without long-term current use of insulin ([facility]); Secondary hypertension Start: 06-18-2024 End: 06-18-2024 Orders Only Lo Toscano MD Work Phone: [facility] Comment on above: Knee buckling, unspe cified laterality (Primary Dx) Start: 06-09-2024 End: 06-19-2024 Telephone encounter Lo Toscano MD Work Phone: [facility] Start: 03-13-2024 End: 03-13-2024 Telephone encounter Jessica [facility] Start: 03-10-2024 End: 03-10-2024 Orders Only Lexie Sorto [facility] Comment on above: Moderate persistent reactive airway disease with acute exacerbation Start: 03-10-2024 End: 03-11-2024 Refill Lo Toscano MD [facility] Comment on above: Type 2 diabetes jer itus with other specified complication, without long-term current use of insulin ([facility]); Secondary hypertension; Controlled type 2 diabetes mellitus without complication, without long-term current use of insulin ([facility]) Start: 02-27-2024 End: 02-27-2024 Office outpatient visit 25 minutes Julissa Macias VEGETABLE WASHER-PERCUSSION INSTRUMENT REPAIRER Work Phone: [facility] Comment on above: Obesity, morbid, BMI 50 or higher ([facility]) (Primary Dx); PAULA (obstructive sleep apnea); Moderate persistent reactive airway disease with acute exacerbation; CPAP use counseling Start: 02-03-2024 Refill Lo Toscano MD [facility] Start: 01-28-2024 Refill Lo Toscano MD [facility] Comment on above: Nausea; Moderate persistent reactive airway disease with acute exacerbation Start: 01-02-2024 [facility] Start: 12-20-2023 Orders Only Lo Toscano MD [facility] Comment on above: Chronic midline low back pain without sciatica (Primary Dx); Lumbar spondylosis Start: 12-18-2023 Orders Only Lo Toscano MD [facility] Comment on above: PAULA (obstructive sle ep apnea) (Primary Dx); Moderate persistent reactive airway disease with acute exacerbation Start: 12-17-2023 Telephone encounter Grisel Trujillo [facility] Start: 12-10-2023 Telephone encounter Nicolle Trujillo MA [facility] Comment on above: Er Follow-up Start: 12-06-2023 Orders Only Lo Toscano MD Work Phone: [facility] Comment on above: Nausea Start: 11-06-2023 Refill Lo Toscano MD Work Phone: [facility] Comment on above: Type 2 diabetes jer itus with other specified complication, without long-term current use of insulin ([facility]); Secondary hypertension Start: 11-02-2023 Refill Lo Toscano MD Work Phone: [facility] Comment on above: Candidal dermatitis Start: 06-27-2023 End: 06-27-2023 ambulatory Aleida Charlotte Other [facility] Other Start: 06-27-2023 Telephone encounter Aleida Charlotte No rt [employer] Start: 03-05-2023 End: 03-05-2023 ambulatory Aleida Charlotte Other [facility] Other Start: 03-05-2023 Office outpatient vi sit 15 minutes Aleida Charlotte [facility] Start: 02-09-2023 End: 02-09-2023 ambulatory Lucinda Rehan Other [facility] Other Start: 02-09-2023 Telephone encounter Lucinda Rehan [facility] Start: 12-27-2022 End: 12-27-2022 ambulatory Lucinda Rehan Other [facility] Other Start: 12-27-2022 Telephone encounter Lucinda Rehan [facility] Start: 12-11-2022 End: 12-11-2022 ambulatory Lucinda Rehan Other [facility] Other Start: 12-11-2022 Telephone encounter Lucinda Rehan [facility] Start: 10-18-2022 End: 10-18-2022 ambulatory Kamal Chaban Other [facility] Other Start: 10-18-2022 Telephone encounter Kamal Chaban [facility] Start: 09-20-2022 End: 09-20-2022 ambulatory Lucinda Rehan Other [facility] Other Start: 09-20-2022 Telephone encounter Lucinda Rehan [facility] Start: 09-14-2022 End: 09-14-2022 ambulatory Emery Cook Other [facility] Other Start: 09-14-2022 Office outpatient vi sit 25 minutes Emery Cook [facility] [place] Start: 08-09-2022 End: 08-09-2022 ambulatory Lucinda Rehan Other [facility] Other Start: 08-09-2022 Telephone encounter Lucinda Rehan [facility] Start: 07-31-2022 (Procedure) Short Emery Cook [facility] Start: 07-31-2022 End: 07-31-2022 ambulatory Emery Cook Other [facility] Other Start: 07-19-2022 End: 07-19-2022 ambulatory Lucinda Rehan Other [facility] Other Start: 07-19-2022 Office outpatient vi sit 25 minutes Lucinda Rehan [facility] Start: 07-11-2022 End: 07-11-2022 ambulatory Emery Cook Other [facility] Other Start: 07-11-2022 Telephone encounter Emery MAE [facility] Start: 05-18-2022 End: 05-18-2022 ambulatory Kamal Chaban Other [facility] Other Start: 05-18-2022 Telephone encounter Kamalonzo Chaban [facility] Start: 05-16-2022 End: 05-16-2022 ambulatory Emery Cook Other [facility] Other Start: 05-16-2022 Telephone encounter Emery MAE [facility] Start: 05-06-2022 End: 05-06-2022 ambulatory SAL MARTINEZ Facility:[facility] Start: 05-01-2022 End: 05-01-2022 ambulatory Lucinda Van Other [facility] Other Start: 05-01-2022 Telephone encounter Lucinda Van [facility] Start: 04-26-2022 End: 04-26-2022 ambulatory Emery Cook Other [facility] Other Start: 04-26-2022 Telephone encounter Emery MAE [facility] Start: 04-13-2022 End: 04-13-2022 ambulatory Emery Cook Other [facility] Other Start: 04-13-2022 Office outpatient vi sit 25 minutes Emery Cook [facility] [place] Start: 10-11-2021 End: 10-12-2021 ambulatory SAL MARTINEZ Facility:[facility] Start: 07-01-2021 End: 07-01-2021 Subsequent hospital visit by physician [facility] (Istat/1.5) Work Phone: [facility] MRI Procedures Date Procedure Procedure Detail Performing Clinician Start: 02-24-2025 Adult depression scr eening assessment Lo Toscano MD Work Phone: Start: 10-25-2024 Quick Strep (POC) Start: 09-24-2023 Adult depression scr eening assessment Lo Toscano MD Work Phone: Start: 10-19-2022 Microalbumin [Mass/v olume] in Urine by Test strip Lo Toscano MD Work Phone: Start: 07-01-2021 Mri spinal canal lum bar w/o contrast material [facility] Provider Plan of Treatment Date Care Activity Detail Author Start: 12-09-2029 DTaP,Tdap and Td Vaccines (2 - Td or Tdap) DTaP,Tdap and Td Vaccines (2 - Td or Tdap) [facility] Start: 03-13-2026 Tobacco Screening Tobacco Screening [facility] Start: 02-24-2026 Adult BMI Screening Adult BMI Screen ing [facility] Start: 02-24-2026 Depression Screening Depression Scre ening [facility] Start: 02-24-2026 Tobacco Screening Tobacco Screening [facility] Start: 12-09-2025 Adult BMI Screening Adult BMI Screen ing [facility] Start: 12-09-2025 Tobacco Screening Tobacco Screening [facility] Start: 07-13-2025 Influenza vaccination Influenza Vacc ine [facility] Start: 06-24-2025 End: 06-24-2025 Patient encounter procedure 06/24/2025 1:30 PM EDT Office Visit [facility] [address] [facility] [place] [id number] Julissa Macias, VEGETABLE WASHER-PERCUSSION INSTRUMENT REPAIRER [address] [place] [address], [address] [place] [id number] [facility] Start: 03-13-2025 End: 03-13-2025 Telemedicine consultation with patient 03/13/2025 11:30 AM EDT Telemedicine [facility] [address] [place] [address] [place] [phone] Lo Toscano MD [address] [place] [address] [facility] Start: 02-27-2025 Tobacco Screening Tobacco Screening [facility] Start: 02-26-2025 Adult BMI Screening Adult BMI Screen ing [facility] Start: 02-26-2025 Tobacco Screening Tobacco Screening [facility] Start: 02-24-2025 End: 02-24-2026 CBC W Auto Differential panel - Blood CBC auto differential Lab Routine Type 2 diabetes mellitus with other specified complication, without long-term current use of insulin ([facility]) Expected: 02/24/2025 (Approximate), Expires: 02/24/2026 [facility] Work Phone: Comment on above: Expected: 02/24/2025 (Approximate), Expires: 02/24/2026 Start: 02-24-2025 End: 02-24-2026 Comprehensive metabolic 2000 panel - Serum or Plasma Comprehensive metabolic panel Lab Routine Type 2 diabetes mellitus with other specified complication, without long-term current use of insulin ([facility]) Expected: 02/24/2025 (Approximate), Expires: 02/24/2026 [facility] Comment on above: Expected: 02/24/2025 (Approximate), Expires: 02/24/2026 Start: 02-24-2025 End: 02-24-2026 Hemoglobin A1c/Hemoglobin.total in Blood Hemoglobin A1c Lab Routine Type 2 diabetes mellitus with other specified complication, without long-term current use of insulin ([facility]) Expected: 02/24/2025 (Approximate), Expires: 02/24/2026 [facility] Comment on above: Expected: 02/24/2025 (Approximate), Expires: 02/24/2026 Start: 02-24-2025 End: 02-24-2026 Lipid 1996 panel - Serum or Plasma Lipid profile Lab Routine Type 2 diabetes mellitus with other specified complication, without long-term current use of insulin ([facility]) Obesity, morbid, BMI 50 or higher ([facility]) PAULA (obstructive sleep apnea) Expected: 02/24/2025 (Approximate), Expires: 02/24/2026 [facility] Comment on above: Expected: 02/24/2025 (Approximate), Expires: 02/24/2026 Start: 02-24-2025 End: 02-24-2026 TSH with Reflex TSH with Reflex Lab Routine Type 2 diabetes mellitus with other specified complication, without long-term current use of insulin ([facility]) Obesity, morbid, BMI 50 or higher ([facility]) PAULA (obstructive sleep apnea) Expected: 02/24/2025 (Approximate), Expires: 02/24/2026 [facility] Comment on above: Expected: 02/24/2025 (Approximate), Expires: 02/24/2026 Start: 02-24-2025 End: 02-24-2026 Vitamin D 25 hydroxy Vitamin D 25 hydroxy Lab Routine Type 2 diabetes mellitus with other specified complication, without long-term current use of insulin ([facility]) Obesity, morbid, BMI 50 or higher ([facility]) Expected: 02/24/2025 (Approximate), Expires: 02/24/2026 [facility] Comment on above: Expected: 02/24/2025 (Approximate), Expires: 02/24/2026 Start: 01-05-2025 Statin Use: Diabetic Statin Use: Kalyn betic [facility] Start: 12-08-2024 Tobacco Screening Tobacco Screening [facility] Start: 10-15-2024 End: 10-15-2024 Patient encounter procedure 10/15/2024 2:00 PM EST Office Visit [facility] [address] [place] [phone] Lo Toscano MD [address] [place], [place] [id number] [facility] Start: 09-30-2024 End: 09-30-2024 Patient encounter procedure 09/30/2024 2:45 PM EST [facility] [address] [place] [phone] Lo Toscano MD [address] [place] [address] [phone] [facility] Start: 09-24-2024 Depression Screening Depression Scre [facility] Start: 09-24-2024 Tobacco Screening Tobacco Screening [facility] Start: 08-27-2024 End: 08-27-2024 Patient encounter procedure 08/27/2024 1:30 PM EDT Office Visit [facility] [address] [place] [phone] Julissa Macias, VEGETABLE WASHER-PERCUSSION INSTRUMENT REPAIRER [address], [address] [place] [address] [facility] Start: 08-21-2024 Adult BMI Screening Adult BMI Screen ing [facility] Start: 07-23-2024 End: 02-26-2025 XR Chest PA and Lateral X-ray chest 2 views Imaging Routine Moderate persistent reactive airway disease with acute exacerbation Expected: 07/23/2024 (Approximate), Expires: 02/26/2025 [facility] Comment on above: Expected: 07/23/2024 (Approximate), Expires: 02/26/2025 Start: 07-22-2024 End: 02-26-2025 Pulmonary function test Spirometry (Flow Volume Loop) w/ DLCO (diffusion study) Repeat testing with bronchodilator Pulmonary function test Spirometry (Flow Volume Loop) w/ DLCO (diffusion study) Repeat testing with bronchodilator PFT Routine Moderate persistent reactive airway disease with acute exacerbation Expected: 07/22/2024 (Approximate), Expires: 02/26/2025 [facility] Work Phone: Comment on above: Expected: 07/22/2024 (Approximate), Expires: 02/26/2025 Start: 07-13-2024 COVID-19 Vaccine ( season) COVID-19 Vaccine ( season) [facility] Start: 07-13-2024 COVID-19 Vaccine ( season) COVID-19 Vaccine ( season) [facility] Start: 07-13-2024 Influenza vaccination Influenza Vacc ine [facility] Start: 02-27-2024 End: 02-27-2024 Patient encounter procedure 02/27/2024 2:00 PM EDT Office Visit [facility] [address] [address] Julissa Macias, VEGETABLE WASHER-PERCUSSION INSTRUMENT REPAIRER [address], [facility] [address] [place] [address] [facility] Start: 10-19-2023 Urine screening for protein Urine Microalbumin [facility] Start: 07-13-2023 COVID-19 Vaccine ( season) COVID-19 Vaccine ( season) [facility] Start: 07-13-2021 Influenza vaccination INFLUENZA (#1) [facility] Start: 2015 LIPID SCREEN LIPID SCREEN [facility] Start: 1999 Urine microalbumin profile DTAP,TDAP,TD (1 - Tdap) [facility] Start: 1998 Adult BMI Follow Up Plan Adult BMI F ollow Up Plan [facility] Start: 1998 Diabetic foot examination Diabetic Foot Exam [facility] Start: 1998 HEPATITIS C SCREENING HEPATITIS C SC REENING [facility] Start: 1998 HIV SCREENING HIV SCREENING [facility] Start: 1992 Adult depression screening assessment DEPRESSION SCREENING [facility] Start: 1992 COVID-19 VACCINE (1) COVID-19 VACCIN E (1) [facility] Start: 1980 Glaucoma screening Diabetic Op hthalmology Exam [facility] Start: 1980 Statin Use: Diabetic Statin Use: Kalyn betic [facility] Start: 1980 Tobacco Counseling Tobacco Counselin g [facility] End: 02-24-2026 Microalbumin - Albumin: Creatinine Urine Ratio Microalbumin - Albumin: Creatinine Urine Ratio Lab Routine Type 2 diabetes mellitus with other specified complication, without long-term current use of insulin ([facility]) 1 Occurrences starting 02/24/2025 until 02/24/2026 [facility] Comment on above: 1 Occurrences starti ng 02/24/2025 until 02/24/2026 Immunizations Immunization Date Immunization Notes Care Provider Taz mcbride 08-21-2023 influenza, injectabl e, quadrivalent, preservative free Lo Toscano MD Work Phone: [facility] 08-21-2023 influenza virus vacc ine, unspecified formulation Julissa Macias VEGETABLE WASHER-PERCUSSION INSTRUMENT REPAIRER Work Phone: [facility] 01-16-2023 influenza, injectabl e, quadrivalent, preservative free Lo Toscano MD Work Phone: [facility] 04-02-2021 COVID-19 Vaccine Pfi zer - Documentation Purposes Only Emery Cook Other [facility] 03-12-2021 COVID-19 Vaccine Pfi zer - Documentation Purposes Only Emery Cook Other [facility] 12-09-2019 influenza, injectabl e, quadrivalent, contains preservative Lo Toscano MD Work Phone: [facility] [employer] [facility] 12-09-2019 tetanus toxoid, redu phil diphtheria toxoid, and acellular pertussis vaccine, adsorbed Lo Toscano MD Work Phone: [facility] 11-27-2018 influenza, seasonal, injectable, preservative free Lo Toscano MD Work Phone: [facility] Payers Date Payer Category Payer Medicare [employer] MEDICARE UHC MEDICARE DUAL COMPLETE [id number] 2023-Present [phone] [address] [address] [place] [address] [id number] 2023 Medicare HMO [employer] MEDICARE [id number] 2023 Private Health Insurance [id number] [address] [facility] MEDICAID [id number] 2021-Present Medicaid [id number] 2020 Medicaid [id number] 2019 Medicare MEDICARE MEDICAR E A AND B [id number] 2019-Present [place] Medicare [id number] 1980 Unknown [id number] 1980 Unknown [id number] 1980 Unknown [id number] 1980 Unknown [id number] 1980 Unknown [id number] 1959 Medicaid [id number] 1959 Medicare [id number] Medicaid [id number] Self-pay Self Pay [id number] Unknown Regular Auto/Liability [id number] Unknown Regular Ins-Other Premis [phone] [id number] Social History Date Type Detail Facility Tobacco smoking stat [facility] Unknown if ever smoked [facility] Start: 1980 [facility] Exposure to SARS-CoV -2 (event) Not sure [facility] Start: 12-23-2020 End: 02-28-2024 Sex Assigned At [facility] Start: 03-05-2023 End: 07-11-2023 Tobacco smoking status NHIS Ex-smoker (finding) [facility] Start: 1980 Sex Assigned At Male F [facility] History of tobacco use Current smoker [facility] History of tobacco use Cigarette Smoker P [facility] Start: 07-11-2023 Tobacco use and exposure User of smokeless tobacco [facility] History of tobacco use Chews Tobacco [facility] Start: 02-28-2024 End: 03-13-2025 Alcoholic beverage intake Current drinker of alcohol (finding) [facility] Start: 12-23-2020 End: 02-28-2024 History of Social function [facility] How hard is it for y ou to pay for the very basics like food, housing, medical care, and heating Somewhat hard [facility] Adolescent depressio n screening assessment 1 [facility] Start: 07-11-2023 Tobacco Comment Nicotine pouches [facility] Start: 02-25-2021 Alcohol Comment rarely [facility] Start: 06-28-2020 End: 12-05-2024 Sex Male (finding) [facility] Medical Equipment Procedure Code Equipment Code Equipment Origin al Text Equipment Identifier Dates Use once per karime sharma with wegovy injection [id number] Start: 06-18-2023 1 each by miscellaneous route once a week. [id number] Start: 03-13-2023 Clinical Notes 07-01-2021 to 04-07-2025 Telephone Encounter - Ruth Reina CNA - 04/07/2025 1:47 PM EDTTelephone Encounter - Lo Toscano MD - 04/07/2025 1:47 PM EDTTelephone Encounter - Smitha Bloom CMA - 04/07/2025 1:47 PM EDT Note Date & Type Note Facility 04-07-2025 Miscellaneous Notes Formattin g of this note might be different from the original. Patient called office stating that he bought stickers like a bandage to place over his alem sensor. Patients states his arm almost has a rash and if you could all in some cream for patient. Patient states you had called it in for him before about this. Please advise Order/Rx placed. For kenalog cream. Please call and notify patient. Thanks, LO TOSCANO MD 04/13/25 Called and informed patient. He stated understanding. documented in this encounter [facility] 04-07-2025 Telephone encount er Note Patient called office stating that he bought stickers like a bandage to place over his alem sensor. Patients states his arm almost has a rash and if you could all in some cream for patient. Patient states you had called it in for him before about this. Please advise [facility] 04-07-2025 Telephone encount er Note Order/Rx placed. For kenalog cream. Please call and notify patient. Thanks, LO TOSCANO MD 04/13/25 [facility] 04-07-2025 Telephone encount er Note Called and informed patient. He stated understanding. [facility] 03-13-2025 History of Presen t illness Narrative Images from the original note were not included. [address] [place] [phone] Patient: Kory [facility]. Date of : 1980 Encounter Date: 03/13/2025 SUBJECTIVE: Chief Complaint: Chief Complaint Patient presents with Diabetes Patient ID: Kory Chavis Jr. is a 44 y.o. male. Moderate persistent asthma in flare up 12/14 This is a frequent recurrence each year for him. Is taking anti histamine. Adherent to Advair BID Using albuterol every 4 hours. Feels tight and wheezing. Not hypoxic. Tolerating activity and PO intake. No f/c/s Adherent to CPAP The following portions of the patient's history were reviewed and updated as appropriate: allergies, current medications, past family history, past medical history, past social history, past surgical history and problem list. PHYSICAL EXAMINATION: Physical Exam Constitutional: Appearance: She is well-developed. She is not ill-appearing. HENT: Head: Normocephalic and atraumatic. Nose: Nose normal. Eyes: General: No scleral icterus. Extraocular Movements: Extraocular movements intact. Pupils: Pupils are equal, round, and reactive to light. Musculoskeletal: Cervical back: Normal range of motion. Neurological: Mental Status: She is alert and oriented to person, place, and time. Psychiatric: Mood and Affect: Mood normal. Behavior: Behavior normal. Thought Content: Thought content normal. Judgment: Judgment normal. ASSESSMENT/PLAN: Kory was seen today for diabetes. Diagnoses and all orders for this visit: Moderate persistent reactive airway disease with acute exacerbation - Discontinue: mometasone (ASMANEX TWISTHALER) 220 mcg/ actuation (14) inhaler; Inhale 1 puff in the morning and 1 puff before bedtime. - mometasone (ASMANEX TWISTHALER) 220 mcg/ actuation (14) inhaler; Inhale 1 puff in the morning and 1 puff before bedtime. - predniSONE (DELTASONE) 20 mg tablet; 3 daily for 3 days then 2 daily for 3 days then 1 daily for 3 days PAULA (obstructive sleep apnea) Moderate persistent asthma with exacerbation Seasonal exacerbation of asthma. If recurrence of symptoms would recommend a long 1 month prednisone taper. Start New inhaler Mometasone Follow up as needed. Video Visit via Real-time Synchronous Audiovisual Provider Location: [facility] [address] [place] [phone] Patient Location: Patient's home Video Visit Consent Statement: I discussed risks, benefits, and alternatives of a real-time synchronous audiovisual consultation with the patient (and any accompanying persons) including the risks that the patient's personal health details and medical records will be discussed over real-time, synchronous, interactive video/audio/telecommunication technology, the visit will not be recorded without the express consent of both the provider and the patient, and that there are some limitations compared to gdxb-dz-kszy evaluations. The patient consented to the presence of additional virtual and/or in-person participants. We elected to proceed. LO TOSCANO MD Family Medicine Physician [facility] 03/13/25 This note was completed with voice recognition software. The document was reviewed for errors however some may still be present. Please do not hesitate to contact/Epic msg the author to verify any questions/concerns. documented in this encounter [facility] 03-11-2025 Miscellaneous Notes Formattin g of this note might be different from the original. Patient has been calling about [employer] form that needs completed. Dr. Lockwood agreed to complete this form. Form has been faxed over to [employer]. Form placed in fax folder to be scanned into patients chart. [facility] Telephone encount er Note Patient has been calling about [employer] form that needs completed. Dr. Lockwood agreed to complete this form. Form has been faxed over to [employer]. Form placed in fax folder to be scanned into patients chart. [facility] 03-11-2025 History of Presen t illness Narrative Received fax transmission from [employer] for 30 day certification of illness for patient Kory Chavis. In reviewing chart, Mr. Chavis has documentation of CPAP use for obstructive sleep apnea and follows with Pulmonary/sleep medicine. Form completed and given to staff up front to be faxed to [facility]. Patient notified of completion of form. documented in this encounter [facility] 03-10-2025 Miscellaneous Notes Formattin g of this note might be different from the original. Patient called office asking if his form was signed and faxed over, currently the paper is in the mailbox of the provider. Told patient we will get that to him when we can. documented in this encounter [facility] 03-10-2025 Telephone encount er Note Patient called office asking if his form was signed and faxed over, currently the paper is in the mailbox of the provider. Told patient we will get that to him when we can. [facility] 02-27-2025 Miscellaneous Notes Formattin g of this note might be different from the original. Patient called into office stating that his pharmacy already processed an order of 1 mg of Ozempic and sent it so they are unable to fill the 2 mg dose at this time. Patient is wanting to know if he should double up on the 1mg until he receives the 2mg dose. Please advise? No. Take the 1 for now until 2mg comes in. Both 1mg and 2mg are active forms. But insurance will not refill early I suspect. Thanks Called and informed patient providers response to Rx questions. Verbalize understanding with patient. documented in this encounter [facility] 02-27-2025 Telephone encount er Note Patient called into office stating that his pharmacy already processed an order of 1 mg of Ozempic and sent it so they are unable to fill the 2 mg dose at this time. Patient is wanting to know if he should double up on the 1mg until he receives the 2mg dose. Please advise? [facility] 02-27-2025 Telephone encount er Note No. Take the 1 for now until 2mg comes in. Both 1mg and 2mg are active forms. But insurance will not refill early I suspect. Thanks [facility] 02-27-2025 Telephone encount er Note Called and informed patient providers response to Rx questions. Verbalize understanding with patient. [facility] 02-24-2025 History of Presen t illness Narrative Images from the original note were not included. [address] [place] [phone] Subjective: Kory Chavis Jr. is a 44 y.o. male who presents for a Medicare Annual Wellness exam. The following portions of the patient's history were reviewed and updated as appropriate: Health Risk Assessment, allergies, past medical history, past surgical history, social history, family history, and immunization history Lifestyle Assessment Do you smoke or use smokeless tobacco?: (!) Yes If you smoke or use smokeless tobacco, are you ready to quit?: NA Are you exposed to secondhand smoke?: No On average, how many drinks of alcohol do you consume in a week?: 2 - 5 Do you exercise for 30 or more minutes on average at least 3 days a week?: Often Do you have any tooth, denture, or oral problems?: No Do you snore or has anyone told you that you snore?: (!) Yes Do you try to eat a balanced diet?: Yes Fall Risk Fall Risk Assessment Completed?: Yes Have you fallen in the past year?: (!) Yes How many times?: 1 Were you injured?: (!) Yes Are you worried about falling?: No Do you feel unsteady when standing or walking?: No Risk Stratification: High Risk Depression Screening Little interest or pleasure in doing things: Not at all Feeling down, depressed, or hopeless: Not at all Trouble falling or staying asleep, or sleeping too much: (!) Several days Feeling tired or having little energy: Not at all Poor appetite or overeating: Not at all Feeling bad about yourself - or that you are a failure or have let yourself or your family down: Not at all Trouble concentrating on things, such as reading the newspaper or watching television: Not at all Moving or speaking so slowly that other people could have noticed. Or the opposite - being so fidgety or restless that you have been moving around a lot more than usual: Not at all Thoughts that you would be better off , or of hurting yourself in some way: Not at all PEG Scale What number best describes your pain on average in the past week?: 7 What number best describes how, during the past week, pain has interfered with your enjoyment of life?: 5 What number best describes how, during the past week, pain has interfered with your general activity?: 6 PEG Pain Total Score: 6 Safety Assessment Do you have throw rugs on the floor?: (!) Yes Do you feel safe at your home?: Yes Do you feel unsteady when walking?: No Are you having difficulty with driving?: No Do you have trouble seeing?: (!) Yes Hearing Assessment Do you strain or struggle to hear/understand conversations?: No Do you have trouble hearing the television or radio when others do not?: No Does your family ever voice concerns about your hearing?: No Do you wear hearing aid/s?: No Personal Health During the past 4 weeks, how would you rate your overall health?: Very Good Do you understand how to take all of your medications?: Yes How confident are you that you can control and manage most of your health problems?: (!) Somewhat confident In the past 12 months, how many times have you been hospitalized?: None End of Life Planning Do you have a living will?: (!) No Do you have a durable power of employee benefits attorney?: (!) No Cognitive Screening Do you have trouble remembering or recalling facts or events?: (!) Yes Do family members or caregivers report that you have difficulty remembering things?: (!) Yes Vitals: Vitals: 02/24/25 1413 BP: 142/88 Pulse: 94 Temp: 37 C (98.6 F) SpO2: 98% Body mass index is 60.3 kg/m . History: Patient Active Problem List Diagnosis Date Noted Type 2 diabetes mellitus with other specified complication, without long-term current use of insulin ([facility]) 02/24/2025 Lumbar spondylosis 07/11/2023 Disorder of sacrum 07/11/2023 BMI 50.0-59.9, adult ([facility]) 03/13/2023 Controlled type 2 diabetes mellitus without complication, without long-term current use of insulin ([facility]) 01/16/2023 Pain in wrist 01/16/2023 Past Medical History: Diagnosis Date Arthritis Asthma Chronic back pain COVID-19 virus infection 11/2021 Dental caries DM (diabetes mellitus) ([facility]) GERD (gastroesophageal reflux disease) Low back pain Obesity Osteoarthritis Respiratory failure ([facility]) 2009 Restless leg syndrome Sleep apnea Uses continuous positive airway pressure (CPAP) ventilation at home Past Surgical History: Procedure Laterality Date LUMBAR EPIDURAL INJECTION Family History Problem Relation Age of Onset Asthma Mother Alcohol abuse Mother Alcohol abuse Father Pulmonary embolism Father Cirrhosis Father Liver disease Father Bipolar disorder Son Asthma Son Arthritis Maternal Aunt Arthritis Maternal Uncle Heart disease Maternal Grandmother Alcohol abuse Maternal Grandmother Arthritis Maternal Grandmother Heart attack Maternal Grandmother Rebecca's disease Maternal Grandmother Diabetes Paternal Grandfather Social History Tobacco Use Smoking status: Former Current packs/day: 1.00 Types: Cigarettes Smokeless tobacco: Current Types: Chew Tobacco comments: Nicotine pouches Substance Use Topics Alcohol use: Yes Comment: rarely Allergies: Allergies Allergen Reactions Clindamycin Anaphylaxis Amoxicillin Hives Penicillins Hives Current Outpatient Medications Medication Sig Dispense Refill acetaminophen (TYLENOL EXTRA STRENGTH) 500 mg tablet Take 1 tablet (500 mg total) by mouth every 6 (six) hours as needed for pain. 30 tablet 0 albuterol (ACCUNEB) 1.25 mg/3 mL nebulizer solution Inhale 3 mL (1.25 mg total) by nebulization every 6 (six) hours as needed for wheezing. albuterol (PROVENTIL HFA;VENTOLIN HFA) 90 mcg/actuation inhaler Inhale 2 puffs every 6 (six) hours as needed for wheezing. 25.5 g 11 atorvastatin (LIPITOR) 40 mg tablet TAKE 1 TABLET BY MOUTH IN THE MORNING 100 tablet 2 cetirizine (ZyrTEC) 10 mg tablet Take 1 tablet (10 mg total) by mouth in the morning. cyclobenzaprine (FLEXERIL) 10 mg tablet Take 1 tablet (10 mg total) by mouth 2 (two) times a day as needed for muscle spasms. 10 tablet 0 flash glucose scanning reader ([employer] ALEM 2 READER) [facility] [place] every 8 hours, use with sensor. 1 each 0 flash glucose sensor (FREESTYLE ALEM 2 SENSOR) kit Replace every 2 weeks 2 kit 11 fluticasone propion-salmeteroL (ADVAIR) 500-50 mcg/dose DISKUS INHALE 1 INHALATION BY MOUTH IN THE MORNING AND 1 INHALATION BY MOUTH BEFORE BEDTIME 180 each 3 ibuprofen (MOTRIN) 800 mg tablet Take 1 tablet (800 mg total) by mouth 3 (three) times a day. 21 tablet 0 ipratropium (ATROVENT) 0.02 % nebulizer solution 4 (four) times a day. JANUVIA 50 mg tablet TAKE 1 TABLET BY MOUTH ONCE DAILY 100 tablet 2 lisinopriL (PRINIVIL,ZESTRIL) 20 mg tablet TAKE 1 TABLET BY MOUTH IN THE MORNING FOR KIDNEY DISEASE FROM DIABETES 100 tablet 2 nystatin (NYSTOP) powder Apply topically 2 (two) times a day. 60 g 1 ondansetron ODT (ZOFRAN ODT) 4 mg disintegrating tablet DISSOLVE 1 TABLET ON THE TONGUE EVERY 8 HOURS NEEDED FOR NAUSEA OR VOMITING 20 tablet 0 OZEMPIC 1 mg/dose (4 mg/3 mL) pen injector INJECT SUBCUTANEOUSLY 1 MG EVERY WEEK 9 mL 3 pen needle, diabetic 32 gauge x 5/16 needle Use once per week with wegovy injection 10 each 2 pen needle, diabetic 32 gauge x 5/32 needle 1 each by miscellaneous route once a week. 10 each 2 pregabalin (LYRICA) 75 mg capsule Take 1 capsule (75 mg total) by mouth in the morning and 1 capsule (75 mg total) before bedtime. 60 capsule 1 topiramate (TOPAMAX) 50 mg tablet TAKE 1 TABLET BY MOUTH IN THE MORNING AND 1 TABLET BY MOUTH BEFORE BEDTIME 200 tablet 2 triamcinolone (KENALOG) 0.1 % cream Apply 1 Application topically in the morning and 1 Application before bedtime. 60 g 1 blood-glucose sensor (FREESTYLE ALEM 3 SENSOR) device REPLACE EVERY 14 DAYS 5 each 5 semaglutide (OZEMPIC) 2 mg/dose (8 mg/3 mL) pen injector Inject 2 mg under the skin every 7 days. 3 mL 10 No current facility-administered medications for this visit. Immunization History Administered Date(s) Administered COVID-19, mRNA, LNP-S, PF, 30mcg/0.3mL Dose 03/12/2021, 04/02/2021 Influenza (IM) Preservative Free 11/27/2018 Influenza, Injectable, Quadrivalent 12/09/2019 Influenza, Injectable, quadrivalent (PF) 01/16/2023, 08/21/2023 Tdap 12/09/2019 Cognitive Screening; Clock Drawing Test: Normal Sensory Screening: No results found. Review of Systems: Review of Systems Constitutional: Negative for activity change. Respiratory: Negative for cough, chest tightness, shortness of breath and wheezing. Cardiovascular: Negative for chest pain and palpitations. Gastrointestinal: Negative for abdominal pain, nausea and vomiting. Genitourinary: Negative for difficulty urinating, dysuria and frequency. Neurological: Negative for seizures and syncope. All other systems reviewed and are negative. Objective: Physical Exam Vitals reviewed. Constitutional: Appearance: He is well-developed. He is obese. HENT: Head: Normocephalic. Right Ear: External ear normal. Left Ear: External ear normal. Nose: Nose normal. Eyes: General: No scleral icterus. Extraocular Movements: Extraocular movements intact. Conjunctiva/sclera: Conjunctivae normal. Pupils: Pupils are equal, round, and reactive to light. Cardiovascular: Rate and Rhythm: Normal rate and regular rhythm. Heart sounds: Normal heart sounds. No murmur heard. Pulmonary: Effort: Pulmonary effort is normal. Breath sounds: Normal breath sounds. No wheezing. Musculoskeletal: Cervical back: Normal range of motion and neck supple. Lymphadenopathy: Cervical: No cervical adenopathy. Neurological: Mental Status: He is alert and oriented to person, place, and time. Cranial Nerves: No cranial nerve deficit. Coordination: Coordination normal. Psychiatric: Mood and Affect: Mood normal. Behavior: Behavior normal. Thought Content: Thought content normal. Office Visit on 08/21/2023 Component Date Value Ref Range Status External Poct Hgb A1C 08/21/2023 6.0 4 - 7 g/dL Final Assessment/Plan: Kory Chavis Jr. has been seen for a well visit today. Preventative recommendations were reviewed. Any chronic conditions that have been addressed include those listed below. CARE TEAM: -PCP - Personalized Prevention Plan Services: Specialty Evaluation Advised:N/A Preventative Programs Recommended: N/A Prevention Counseling and Education Materials:Staying Healthy: Medicare's Preventive Services ([facility]) Diseases: Forgetfulness (LISA), Hearing Loss (LISA), Heart Health (LISA), and Know the Facts about Heart Disease (CDC) Immunizations: Understanding how vaccines work (CDC) Nutrition: Healthy eating after 50 (LISA) and Common questions (LISA) Activity/Exercise/Safety/Misc: Road to Independent Driving ([facility]) The above recommendations were discussed with patient Kory was seen today for annual exam. Diagnoses and all orders for this visit: Type 2 diabetes mellitus with other specified complication, without long-term current use of insulin ([facility] [place]) - CBC auto differential; Future - Comprehensive metabolic panel; Future - Hemoglobin A1c; Future - Lipid profile; Future - TSH with Reflex; Future - Vitamin D 25 hydroxy; Future - Microalbumin - Albumin: Creatinine Urine Ratio; Future - semaglutide (OZEMPIC) 2 mg/dose (8 mg/3 mL) pen injector; Inject 2 mg under the skin every 7 days. - Discontinue: blood-glucose sensor (FREESTYLE ALEM 3 SENSOR) device; REPLACE EVERY 14 DAYS - Discontinue: blood-glucose sensor (FREESTYLE ALEM 3 SENSOR) device; REPLACE EVERY 14 DAYS - blood-glucose sensor (FREESTYLE ALEM 3 SENSOR) device; REPLACE EVERY 14 DAYS Obesity, morbid, BMI 50 or higher ([facility]) - Lipid profile; Future - TSH with Reflex; Future - Vitamin D 25 hydroxy; Future - semaglutide (OZEMPIC) 2 mg/dose (8 mg/3 mL) pen injector; Inject 2 mg under the skin every 7 days. PAULA (obstructive sleep apnea) - Lipid profile; Future - TSH with Reflex; Future - semaglutide (OZEMPIC) 2 mg/dose (8 mg/3 mL) pen injector; Inject 2 mg under the skin every 7 days. Controlled type 2 diabetes mellitus without complication, without long-term current use of insulin ([facility]) There are no Patient Instructions on file for this visit. LO TOSCANO MD 02/24/25 documented in this encounter [facility] 10-25-2024 Evaluation note Diagnosis Onset Date Resolution AOM (acute otitis media) acute October 25, 2 024 12:35pm Asthma, moderate persistent acute October 25, 2 024 12:35pm [facility] Work Phone: 1(398) 655-693710-15-2024 Miscellaneous Notes* Telephone Encounter - Lexie Sorto - 08/26/2024 3:24 PM EDT CALLED PT TO DISCUSS UPCOMING APPOINTMENT AND THE NEEDS FOR A CXR AND PFT. WHEN I ASKED TO SPEAK WITH ROSENDA MALE STATES WHAT YOU NEED I SAID IS THIS KORY? HE AGAIN SAYS WHAT YOU NEED I SAID IS THIS KORY?' HE AGAIN SAYS WHAT YOU NEED? AT THIS POINT I IDENTIFY MYSELF AND THAT I NEEDED TO CANCEL KORY'S APPOINTMENT WITH [facility] UNTIL HE COMPLETED HIS PFT AND CXR MALE SAID OK AND HUNG UP [facility] Telephone encounter Note* Telephone Encounter - Lexie Sorto - 08/26/2024 3:24 PM EDT CALLED PT TO DISCUSS UPCOMING APPOINTMENT AND THE NEEDS FOR A CXR AND PFT. WHEN I ASKED TO SPEAK WITH ROSENDA MALE STATES WHAT YOU NEED I SAID IS THIS KORY? HE AGAIN SAYS WHAT YOU NEED I SAID IS THIS KORY?' HE AGAIN SAYS WHAT YOU NEED? AT THIS POINT I IDENTIFY MYSELF AND THAT I NEEDED TO CANCEL KORY'S APPOINTMENT WITH [facility] UNTIL HE COMPLETED HIS PFT AND CXR MALE SAID OK AND HUNG UP [facility]09-04-2024 History of Present illness Narrative* GUY Jones - 07/16/2024 3:13 PM EDT Images from the original note were not included. Patient called requesting nebulizer supplies, per NAVJOT monte to order nebulizer supplies. Order faxed to [facility]. [facility] Miscellaneous Notes* Telephone Encounter - [facility] Tereso Natarajan - 06/09/2024 3:21 PM EDT Patient would like to know if PCP is able to place referral to [facility] for his knee. States that that right knee keeps giving out on him. Please advise. * Telephone Encounter - Lo Toscano MD - 06/09/2024 3:21 PM EDT Rx/order placed for [facility] Dr. Barrera Please call and notify patient. Thanks, LO TOSCANO MD 06/18/24 * Telephone Encounter - [facility] Tereso Natarajan - 06/09/2024 3:21 PM EDT Notified patient documented [facility] Telephone encounter Note* Telephone Encounter - [facility] Tereso Natarajan - 06/09/2024 3:21 PM EDT Patient would like to know if PCP is able to place referral to [facility] for his knee. States that that right knee keeps giving out on him. Please advise. [facility]07-29-2024 Telephone encounter Note* Telephone Encounter - Lo Toscano MD - 06/09/2024 3:21 PM EDT Rx/order placed for [facility] Dr. Barrera Please call and notify patient. Thanks, LO TOSCANO MD 06/18/24 [facility]07-29-2024 Telephone encounter Note* Telephone Encounter - Deirdre Natarajan - 06/09/2024 3:21 PM EDT Notified patient [facility]05-02-2024 Miscellaneous Notes* Telephone Encounter - GUY Jones - 03/13/2024 4:43 PM EDT Images from the original note were not included. PAP Mask and Supplies Order Faxed to [facility] Fax Confirmed. documented in [facility]24 Telephone encounter Note* Telephone Encounter - GUY Jones - 03/13/2024 4:43 PM EDT Images from the original note were not included. PAP Mask and Supplies Order Faxed to [facility] Fax Confirmed. [facility]04-17-2024 History of Present illness Narrative* Julissa Macias, MANJIT-PERCUSSION INSTRUMENT REPAIRER - 02/27/2024 2:00 PM EDT Chief Complaint: Kory Chaivs Jr. is a 43 y.o. male present for initial visit regarding PAULA and asthma HPI: Patient is accompanied by: self The patient reports that he has a history of childhood asthma. He currently is on Advair and using daily. He has Albuterol inhaler that he will use maybe 5 times per month. He does have some environmental allergies. Only time he has any dyspnea is with heavy exertion. He denies any fever, chills, chest pain, phlegm, cough or hemoptysis. Denies any ER visits or hospitalizations since he last visitin our office. Supplemental O2 use: none Frequency of respiratory infections: rarely Has tried following inhalers in past: Advair and Albuterol Sleep Issues: The patient reports that he is adherent to his nocturnal ventilatory support for 8-10 hours a night7 days per week. He reports feeling the benefits of wearing it nightly and denies any am fatigue orexcessive daytime sleepiness. Denies any aerophagia. Denies any issues with mask fit or PAP machine. He denies sleepiness while driving. Supplemental O2 use: none Current PAP interface: He uses a Full Face Mask. He does not use a chinstrap. He does use the heated inline humidifier. Cleaning supplies with soap and water. EPWORTH SLEEPINESS SCALE Sitting and Reading: Never Watching TV: Slight Chance Sitting inactive in a public place (theater, meeting): Never As a passenger in a car for an hour without a break: Slight Chance Lying down in the afternoon to rest: Slight Chance Sitting and talking to someone: Never Sitting quietly after lunch (without alcohol): Slight Chance In a car, while stopped for a few minutes in traffic: Never Total: 4 OARRS REVIEWED: Reviewed: no PMH @ Past Medical History: Diagnosis Date Arthritis Asthma Chronic back pain COVID-19 virus infection 11/2021 Dental caries DM (diabetes mellitus) ([facility]) GERD (gastroesophageal reflux disease) Low back pain Obesity Osteoarthritis Respiratory failure ([facility]) 2009 Restless leg syndrome Sleep apnea Uses continuous positive airway pressure (CPAP) ventilation at home PERTINENT HISTORY: His pertinent medical history includes Past Medical History: Diagnosis Date Arthritis Asthma Chronic back pain COVID-19 virus infection 11/2021 Dental caries DM (diabetes mellitus) ([facility]) GERD (gastroesophageal reflux disease) Low back pain Obesity Osteoarthritis Respiratory failure ([facility]) 2009 Restless leg syndrome Sleep apnea Uses continuous positive airway pressure (CPAP) ventilation at home CURRENT MEDICATIONS: Reviewed with patient. Current Outpatient Medications: albuterol (ACCUNEB) 1.25 mg/3 mL nebulizer solution, Inhale 3 mL (1.25 mg total) by nebulization every 6 (six) hours as needed for wheezing., Disp: , Rfl: albuterol (PROVENTIL HFA;VENTOLIN HFA) 90 mcg/actuation inhaler, USE 2 INHALATIONS BY MOUTH EVERY 6HOURS NEEDED FOR WHEEZING, Disp: 25.5 g, Rfl: 3 atorvastatin (LIPITOR) 40 mg tablet, Take 1 tablet (40 mg total) by mouth in the morning., Disp: 90tablet, Rfl: 5 cetirizine (ZyrTEC) 10 mg tablet, Take 1 tablet (10 mg total) by mouth in the morning., Disp: , Rfl: cyclobenzaprine (FLEXERIL) 10 mg tablet, take 1 tablet by mouth twice a day if needed, Disp: 60 tablet, Rfl: 2 flash glucose scanning reader ([employer] ALEM 2 READER) [facility] [place] sugar every 8 hours, use with sensor., Disp: 1 each, Rfl: 0 flash glucose sensor (FREESTYLE ALEM 2 SENSOR) kit, Replace every 2 weeks, Disp: 2 kit, Rfl: 11 fluticasone propion-salmeteroL (ADVAIR) 500-50 mcg/dose DISKUS, Inhale 1 puff in the morning and 1 puff before bedtime., Disp: , Rfl: ibuprofen (ADVIL,MOTRIN) 800 mg tablet, Take 1 tablet (800 mg total) by mouth every 6 (six) hours as needed for pain., Disp: , Rfl: ipratropium (ATROVENT) 0.02 % nebulizer solution, 4 (four) times a day., Disp: , Rfl: lisinopriL (PRINIVIL,ZESTRIL) 20 mg tablet, take 1 tablet by mouth every morning, Disp: 90 tablet, Rfl: 2 NYSTOP powder, APPLY TO AFFECTED AREA FOUR TIMES A DAY - MORNING, NOON, EVENING AND BEDTIME, Disp: 15 g, Rfl: 0 ondansetron ODT (ZOFRAN ODT) 4 mg disintegrating tablet, DISSOLVE 1 TABLET ON THE TONGUE EVERY 8 HOURS NEEDED FOR NAUSEA OR VOMITING, Disp: 20 tablet, Rfl: 0 OZEMPIC 1 mg/dose (4 mg/3 mL) pen injector, INJECT SUBCUTANEOUSLY 1 MG EVERY WEEK, Disp: 9 mL, Rfl:3 pen needle, diabetic 32 gauge x 5/16 needle, Use once per week with wegovy injection, Disp: 10 each, Rfl: 2 pen needle, diabetic 32 gauge x 5/32 needle, 1 each by miscellaneous route once a week., Disp: 10 each, Rfl: 2 pregabalin (LYRICA) 75 mg capsule, Take 1 capsule (75 mg total) by mouth in the morning and 1 capsule (75 mg total) before bedtime., Disp: 60 capsule, Rfl: 1 SITagliptin phosphate (JANUVIA) 50 mg tablet, take 1 tablet by mouth once daily, Disp: 90 tablet, Rfl: 2 topiramate (TOPAMAX) 50 mg tablet, TAKE 1 TABLET BY MOUTH IN THE MORNING AND 1 TABLET BY MOUTH BEFORE BEDTIME, Disp: 180 tablet, Rfl: 3 triamcinolone (KENALOG) 0.1 % cream, Apply 1 Application topically in the morning and 1 Applicationbefore bedtime., Disp: 30 g, Rfl: 0 Vitals: 02/27/24 1359 BP: (!) 156/117 Pulse: 92 SpO2: 96% Weight: (!) 197.6 kg (435 lb 9.6 oz) Height: 182.9 cm (6' 0.01 ) ALLERGIES Reviewed with patient. Clindamycin, Amoxicillin, and Penicillins FAMILY HISTORY Family History Problem Relation Age of Onset Asthma Mother Alcohol abuse Mother Alcohol abuse Father Pulmonary embolism Father Cirrhosis Father Liver disease Father Bipolar disorder Son Asthma Son Arthritis Maternal Aunt Arthritis Maternal Uncle Heart disease Maternal Grandmother Alcohol abuse Maternal Grandmother Arthritis Maternal Grandmother Heart attack Maternal Grandmother [place]'s disease Maternal Grandmother Diabetes Paternal Grandfather SOCIAL HISTORY: Social History Socioeconomic History Marital status: Tobacco Use Smoking status: Former Current packs/day: 1.00 Types: Cigarettes Smokeless tobacco: Current Types: Chew Tobacco comments: Nicotine pouches Vaping Use Vaping status: Never Used Substance and Sexual Activity Alcohol use: Yes Comment: rarely Drug use: Not Currently Types: Marijuana Comment: cbd gummies at night to sleep Sexual activity: Defer Partners: Female Social Determinants of Health Financial Resource Strain: Medium Risk (09/24/2023) Overall Financial Resource Strain (CARDIA) Difficulty of Paying Living Expenses: Somewhat hard Food Insecurity: No Food Insecurity (12/08/2023) Hunger Screening Food Insecurity - Worry: Never True Food Insecurity - Inability: Never True Recent Concern: Food Insecurity - Food Insecurity Present (09/24/2023) Hunger Screening Food Insecurity - Worry: Sometimes True Food Insecurity - Inability: Sometimes True Transportation Needs: Patient Declined (09/24/2023) PRAPARE - Transportation Lack of Transportation (Medical): Patient declined Lack of Transportation (Non-Medical): Patient declined Housing Instability: Low Risk (09/24/2023) Housing Instability Housing Instability: No TRAVEL HISTORY: Denies recent travel. ROS: Review of Systems Constitutional: Negative for chills, fatigue and fever. Respiratory: Negative for cough, shortness of breath and wheezing. Cardiovascular: Negative for chest pain/discomfort. All other systems are reviewed and are negative except as noted. PHYSICAL EXAM Vital signs BP (!) 156/117 Pulse 92 Ht 182.9 cm (6' 0.01 ) Wt (!) 197.6 kg (435 lb 9.6 oz) SpO2 96% BMI 59.06 kg/m Physical Exam Vitals and nursing note reviewed. Constitutional: Appearance: Normal appearance. He is obese. Cardiovascular: Heart sounds: Normal heart sounds. Pulmonary: Breath sounds: Normal breath sounds. Musculoskeletal: Cervical back: Neck supple. Skin: General: Skin is warm and dry. Neurological: Mental Status: He is alert and oriented to person, place, and time. Psychiatric: Mood and Affect: Mood normal. Behavior: Behavior normal. Assessment: Neurological alert and oriented LAB RESULTS: Lab Results Component Value Date CO2 23 11/14/2022 Lab Results Component Value Date TSH 1.28 11/14/2022 IMAGING/PFT EDUCATION: X-ray wrist left minimum 3 views Result Date: 12/08/2023 Clinical history: Wrist pain Left wrist: 12/08/2023 COMPARISON: 04/28/2022 FINDINGS: 4 views of the wrist were obtained. No focal osseous abnormalities evident. Bone density is within normal limits. Articular surfaces appear intact. IMPRESSION: No acute osseous injury evident radiographically. Follow-up radiographs are recommended in 7 to 10 days if the patient has persistent pain in the anatomicalsnuffbox. Finalized by Ilan Arellano MD on 12/08/2023 8:35 AM X-ray shoulder left minimum 2 views Result Date: 12/08/2023 XR SHOULDER LT MIN 2 VWS: 12/08/2023 8:33 AM Clinical: Injury with shoulder pain EXAM: LEFT SHOULDERRADIOGRAPHS Comparison: none Views: 3 Findings: There is no acute fracture, dislocation, or destructive lesion. AC joint spurring noted. Unremarkable glenohumeral joint. Impression: * No acute findings. Finalized by Nash Diaz MD on 12/08/2023 8:35 AM X-ray wrist left minimum 3 views Clinical history: Wrist pain Left wrist: 12/08/2023 COMPARISON: 04/28/2022 FINDINGS: 4 views of the wrist were obtained. No focal osseous abnormalities evident. Bone density is within normal limits. Articular surfaces appear intact. IMPRESSION: No acute osseous injury evident radiographically. Follow-up radiographs are recommended in 7 to 10 days if the patient has persistent pain in the anatomical snuffbox. Finalized by Ilan Arellano MD on 12/08/2023 8:35 AM X-ray shoulder left minimum 2 views XR SHOULDER LT MIN 2 VWS: 12/08/2023 8:33 AM Clinical: Injury with shoulder pain EXAM: LEFT SHOULDER RADIOGRAPHS Comparison: none Views: 3 Findings: There is no acute fracture, dislocation, or destructive lesion. AC joint spurring noted. Unremarkable glenohumeral joint. Impression: * No acute findings. Finalized by Nash Diaz MD on 12/08/2023 8:35 AM DATA: Data card was not available for PAP usage data download. Need to have on file DME: [facility] IMPRESSION Kory was seen today for sleep apnea, new patient and asthma. Diagnoses and all orders for this visit: PAULA (obstructive sleep apnea) - Ambulatory referral to [facility] Sleep Medicine - Cancel: change pressure AUTO PAP: 7-20 - Cancel: change pressure AUTO PAP: 7-15 Moderate persistent reactive airway disease with acute exacerbation - Ambulatory referral to [facility] Sleep Medicine - Pulmonary function test Spirometry (Flow Volume Loop) w/ DLCO (diffusion study) Repeat testing with bronchodilator; Future - albuterol (PROVENTIL,VENTOLIN) nebulizer solution 2.5 mg - X-ray chest 2 views; Future HIstory of asthma does not appear in current exacerbation PAULA with reported adherence to nocturnal ventilatory support. Type 2 DM Obesity Body mass index is 59.06 kg/m . PLAN Discussed diagnosis, its evaluation, treatment and usual course. All questions answered. Educational material distributed. Orders Placed This Encounter Procedures X-ray chest 2 views Standing Status: Future Standing Expiration Date: 02/26/2025 Order Specific Question: Reason for Exam: Answer: airway obstruction Order Specific Question: Release to patient via MyChart? Answer: Immediate [1] Pulmonary function test Spirometry (Flow Volume Loop) w/ DLCO (diffusion study) Repeat testing withbronchodilator Repeat testing with bronchodilator for FEV1/FVC is less than 70% or FEV1 is less than 80% Standing Status: Future Standing Expiration Date: 02/26/2025 Scheduling Instructions: SPIROMETRY W/DIFFUSION (DLCO) [40882] Order Specific Question: Specify test Answer: Spirometry (Flow Volume Loop) w/ DLCO (diffusion study) Repeat testing with bronchodilator Order Specific Question: Release to patient via MyChart? Answer: Immediate [1] No orders of the defined types were placed in this encounter. PFT and CXR prior to next visit Obtain previous sleep records from [facility]. In meantime continue current PAP settings Continue Advair. Discussed proper use and encouraged use of spacer with Albuterol. Discussed deviceand encouraged to rinse after use. Diet and exercise were discussed in detail. Any age appropriate or routine screening per PCP. Follow up in 6 Months time. If his condition should change prior to this he is encouraged to give our office a call. EDUCATION: Driving precautions were reviewed. I advised the patient not to drive if sleepy, and to conductor pullman if sleepiness occurs while driving. Above plan as discussed with the patient who acknowledged understanding and agreement. Health risks associated with untreated PAULA were discussed (cardiopulmonary, cerebrovascular, and anesthesia/sedative-related). CC: MD Julissa PRESTON [facility] Office: [phone] 2:33 PM on 02/28/2024 This note is dictated with the use of M*Modal.Please note that this dictation was completed with computer voice recognition software. Quite often unanticipated grammatical, syntax, homophones, and other interpretive errors are inadvertently transcribed by the computer software. Please disregard these errors. Please excuse any errors that have escaped final proofreading. LIZZETTE Rondon 02/28/24 1440 documented in this encounterSouth[facility] [facility] Instructions* Patient Instructions* LIZZETTE Rondon - 02/27/2024 2:00 PM EDT If you re looking for general health and wellness resources, please visit [email or web address] Miscellaneous Notes* Telephone Encounter - Grisel Morales CMA - 12/17/2023 10:55 AM EST TRACK ANNOUNCER ATTEMPTED TO REACH OUT TO PATIENT, HOWEVER PATIENT'S VOICEMAIL DID NOT PROMPT TRACK ANNOUNCER TO LEAVE A VOICEMAIL.. TRACK ANNOUNCER WILL ATTEMPT LATER TODAY. (12.17.23) documented in this encounter[facility]24 Telephone encounter Note* Telephone Encounter - Grisel Morales CMA - 12/17/2023 10:55 AM EST TRACK ANNOUNCER ATTEMPTED TO REACH OUT TO PATIENT, HOWEVER PATIENT'S VOICEMAIL DID NOT PROMPT TRACK ANNOUNCER TO LEAVE A VOICEMAIL.. TRACK ANNOUNCER WILL ATTEMPT LATER TODAY. (12.17.23) [facility]01-29-2024 Miscellaneous Notes* Telephone Encounter - Nicolle Avery CMA - 12/10/2023 8:15 AM EST ED Outreach This documentation is being used for Transition of Care purposes: Yes/No: Yes ED Outreach Date: December 10, 2023 ED Outreach Method: COMMUNICATION METHOD: Telephone ED Outreach Attempt: first ED Outreach Outcome: Contacted Patient Name of ED Facility: [facility] Date of ED Discharge: 12/08/2023 Discharge Diagnosis: Left wrist pain, acute pain of left shoulder ED Chief Complaint: wrist pain, shoulder pain Current Symptom Status: improving- patient states that he is feeling much better this morning. He is using his arm as needed. Denies other concerns at this time. Medication Changes Reviewed: yes Medication Questions/Concerns: denies concerns Follow-up PCP Scheduled: declines Follow-up Specialist Scheduled: n/a Follow up Testing Scheduled: n/a Patient Contacted Office Prior to ED Visit: No. Patient made aware of on-call provider and same dayappointment availability. Additional Comments: Patient will contact the office with additional concerns. [facility] Telephone encounter Note* Telephone Encounter - Nicolle Avery CMA - 12/10/2023 8:15 AM EST ED Outreach This documentation is being used for Transition of Care purposes: Yes/No: Yes ED Outreach Date: December 10, 2023 ED Outreach Method: COMMUNICATION METHOD: Telephone ED Outreach Attempt: first ED Outreach Outcome: Contacted Patient Name of ED Facility: [facility] Date of ED Discharge: 12/08/2023 Discharge Diagnosis: Left wrist pain, acute pain of left shoulder ED Chief Complaint: wrist pain, shoulder pain Current Symptom Status: improving- patient states that he is feeling much better this morning. He is using his arm as needed. Denies other concerns at this time. Medication Changes Reviewed: yes Medication Questions/Concerns: denies concerns Follow-up PCP Scheduled: declines Follow-up Specialist Scheduled: n/a Follow up Testing Scheduled: n/a Patient Contacted Office Prior to ED Visit: No. Patient made aware of on-call provider and same dayappointment availability. Additional Comments: Patient will contact the office with additional concerns. [facility] Miscellaneous Notes* Telephone Encounter - GUY Jones - 12/06/2023 2:37 PM EST Patient called to reschedule his new patient appointment, does patient need any testing completed prior to appointment. * Telephone Encounter - GUY Jones - 12/06/2023 2:37 PM EST Patient called to reschedule his new patient appointment, does patient need any testing completed prior to appointment. documented in this encounterMer[facility]01-25-2024 Telephone encounter Note* Telephone Encounter - GUY Jones - 12/06/2023 2:37 PM EST Patient called to reschedule his new patient appointment, does patient need any testing completed prior to appointment. [facility]01-25-2024 Telephone encounter Note* Telephone Encounter - GUY Jones - 12/06/2023 2:37 PM EST Patient called to reschedule his new patient appointment, does patient need any testing completed prior to appointment. [facility]01-25-[facility] History of Present illness Narrative* Lo Toscano MD - 12/06/2023 1:37 PM EST Sending zofran documented in this encounterMer[facility]04-24-2023 Evaluation note* Encounter Date Diagnosis Assessment Notes Treatment Notes Treatment Clinical Notes Feb, Sore throat (ICD-10 - J02.9) Feb, Acute pharyngitis due to other specified organisms (ICD-10 - J02.8) Pharyngitis/tonsill opharyngitis: adult home care material was printed Drink plenty fluids, get plenty of rest. Take Tylenol or Motrin as needed for aches pains or fevers. Take the azithromycin as prescribed until gone. Follow-up with your family physician if no improvement in 2 to 3 days Feb, Other specified bacterial agents as the cause of diseases classified elsewhere (ICD-10 - B96.89) [facility] Other 03-31-2023 Evaluation note* Encounter Date Diagnosis Assessment Notes Treatment Notes Treatment Clinical Notes Jan, Restless legs syndrome (ICD-10 - G25.81) [facility] Other 01-30-2023 Evaluation note* Encounter Date Diagnosis Assessment Notes Treatment Notes Treatment Clinical Notes Nov, Asthma, moderate persistent (ICD-10 - J45.40) [facility] Other 11-09-2022 Evaluation note* Encounter Date Diagnosis Assessment Notes Treatment Notes Treatment Clinical Notes Sep, Restless legs syndrome (ICD-10 - G25.81) Sep, Asthma, moderate persistent (ICD-10 - J45.40) [facility] Other 11-03-2022 Evaluation note* Encounter Date Diagnosis Assessment Notes Treatment Notes Treatment Clinical Notes Sep, Other spondylosis with radiculopathy, lumbar region (ICD-10 - M47.26) We discussed treatment options for the patient's persistent low back pain. He shows notable pain consistent with degenerative changes of the lumbar spine. We discussed the possible benefit of treatment of the facet region for axial back pain. Patient is a reasonable candidate for diagnostic bilateral lumbar facet medial branch nerve blocks which we will proceed with. Risks and benefits of procedure explained to patient; patient verbalizes understanding. It was further explained should this provide significant short term relief we will proceed with a repeat block and subsequent radiofrequency ablation. He notes he will call when he is ready to schedule. We will plan on trialing Methocarbamol 500 mg twice daily. Risks and side effects of this medication was discussed in detail with the patient who voiced understanding. Patient was demanding pain medication, we discussed with him again today, we will not provide him any opioid pain medications. He was encouraged to continue taking Tylenol and Ibuprofen as needed. Anatomy of spine discussed in detail with patient in regard to patients condition. Sep, Other low back pain (ICD-10 - M54.59) Sep, Spondylosis without myelopathy or radiculopathy, lumbosacral region (ICD-10 - M47.817) Sep, Other chronic pain (ICD-10 - G89.29) Sep, Other Above note writ ten by Max Mcbride LPN, Chaser Apprentice. Edited and approved by Dr. Emery Cook MD. [facility] Other 09-28-2022 Evaluation note* Encounter Date Diagnosis Assessment Notes Treatment Notes Treatment Clinical Notes Jul, Asthma, moderate persistent (ICD-10 - J45.40) [facility] Other 09-07-2022 Evaluation note* Encounter Date Diagnosis Assessment Notes Treatment Notes Treatment Clinical Notes Jul, Asthma, moderate persistent (ICD-10 - J45.40) Jul, Obesities, morbid (ICD-10 - E66.01) Continue with weight loss Jul, Obstructive sleep ap marycarmen (ICD-10 - G47.33) Jul, Gastroesophageal ref lux disease (ICD-10 - K21.9) Jul, Restless legs syndro me (ICD-10 - G25.81) [facility] Other 08-30-2022 Evaluation note* Encounter Date Diagnosis Assessment Notes Treatment Notes Treatment Clinical Notes Jun, Low back pain (ICD-10 - M54.5) [facility] Other 06-20-2022 Evaluation note* Encounter Date Diagnosis Assessment Notes Treatment Notes Treatment Clinical Notes Apr, Restless legs syndrome (ICD-10 - G25.81) [facility] Other 06-15-2022 Evaluation note* Encounter Date Diagnosis Assessment Notes Treatment Notes Treatment Clinical Notes Apr, Low back pain (ICD-10 - M54.5) [facility] Other 06-02-2022 Evaluation note* Encounter Date Diagnosis Assessment Notes Treatment Notes Treatment Clinical Notes Apr, Low back pain (ICD-10 - M54.5) We discussed treatment options for the patient's persistent lumbar pain, radiating into his bilateral lower extremities. Patient has exhausted multiple previous treatment options. We continued to emphasize the importance of weight loss, he has declined our suggestion for the weight loss management program. Given the MRI results, as well as location of pain and exam findings, patient is a candidate for a lumbar epidural steroid injection which we will proceed with. Risks and benefits of procedure explained to patient; patient verbalizes understanding. Patient was informed that the level of Motrin he is currently taking is not safe and was advised to scale back on this. Apr, Lumbosacral spondylosis without myelopathy (ICD-10 - M47.817) Apr, Other chronic pain (ICD-10 - G89.29) Apr, Other Above note writ ten by Max Mcbride LPN, Chaser Apprentice. Edited and approved by Dr. Emery Cook MD. [place] [email or web address] Other 08-20-2021 NoteHNO ID: [id number] Author: RT Alfa(R) Service: ? Author Type: Technology Specialist Type: Progress Notes Filed: 07/01/2021 12:17 PM Note Text: Radiology Service Progress Note PATIENT NAME: Kory Chavis DATE OF SERVICE: July 01, 2021 TIME: 12:04 PM PATIENT IDENTITY VERIFICATION COMPLETED USING TWO (2) IDENTIFIERS: Name and Date of confirmed by patient verbally. FALL SCREENING: Has the patient had 2 falls in the last year or 1 fall with injury or currently using an Ambulatory Assistive Device (Walker, Cane, Wheelchair, Crutches, etc.)? No PATIENT GENDER DATA: Male PATIENT RELEVANT IMPLANT DATA REVIEWED: Yes RADIOLOGY DEPARTMENT: MR; Exam(s) Completed: Spine: Lumbar spine PERIPHERAL IV DATA: Not applicable SIGNED BY: RT Alfa(R) / RT Dionne (MR) July 01, 2021 12:04 [facility] [id number] History of Present illness Narrative* Javier Riojas RT(R) - 07/01/2021 11:40 AM EDT Radiology Service Progress Note PATIENT NAME: Kory Chavis DATE OF SERVICE: July 01, 2021 TIME: 12:04 PM PATIENT IDENTITY VERIFICATION COMPLETED USING TWO (2) IDENTIFIERS: Name and Date of confirmedby patient verbally. FALL SCREENING: Has the patient had 2 falls in the last year or 1 fall with injury or currently using an Ambulatory Assistive Device (Walker, Cane, Wheelchair, Crutches, etc.)? No PATIENT GENDER DATA: Male PATIENT RELEVANT IMPLANT DATA REVIEWED: Yes RADIOLOGY DEPARTMENT: MR; Exam(s) Completed: Spine: Lumbar spine PERIPHERAL IV DATA: Not applicable SIGNED BY: RT Alfa(R) / RT Dionne (MR) July 01, 2021 12:04 PM documented in this encounterMer[facility] noteNo [email or web address] Other Evaluation note* Diagnosis Onset Date Resolution Status COVID acute Contact with and (suspected) exposure to covid-19 noneactive [facility] Work Phone: Evaluation note* Diagnosis Candidal dermatitis documented in this encounter [facility]* Diagnosis Obesity, morbid, BMI 50 or higher ([facility] Primary PAULA (obstructive sleep apnea) Obstructive sleep apnea (adult) (pediatric) Moderate persistent reactive airway disease with acute exacerbation CPAP use counseling documented in this encounter [facility]* Diagnosis Type 2 diabetes mellitus with other specified complication, without long-term current use of insulin ([facility]) Secondary hypertension Other secondary hypertension, unspecified documented in this encounter [facility]* Diagnosis Moderate persistent reactive airway disease with acute exacerbation documented in this encounter [facility]* Diagnosis Type 2 diabetes mellitus with other specified complication, without long-term current use of insulin ([facility]) Secondary hypertension Other secondary hypertension, unspecified Controlled type 2 diabetes mellitus without complication, without long-term current use of insulin ([facility]) documented in this encounter [facility]* Diagnosis Nausea Nausea alone [facility]* Diagnosis PAULA (obstructive sleep apnea)- Primary Obstructive sleep apnea (adult) (pediatric) Moderate persistent reactive airway disease with acute exacerbation documented in this encounter [facility]* Diagnosis Chronic midline low back pain without sciatica- Primary Lumbar spondylosis Lumbosacral spondylosis without myelopathy [facility]* Diagnosis Nausea Nausea alone Moderate persistent reactive airway disease with acute exacerbation [facility] Diagnosis Knee buckling, unspecified laterality- Primary [facility]* Diagnosis Type 2 diabetes mellitus with other specified complication, without long-term current use of insulin ([facility]) Secondary hypertension Other secondary hypertension, unspecified [facility]* Diagnosis BMI 60.0-69.9, adult ([facility]) documented [facility]* Diagnosis Moderate persistent reactive airway disease with acute exacerbation- Primary Asthma, unspecified asthma severity, unspecified whether complicated, unspecified whether persistent [facility]* Diagnosis Candidal dermatitis [facility]* Diagnosis ASCVD (arteriosclerotic cardiovascular disease) Unspecified cardiovascular disease [facility]* Diagnosis Controlled type 2 diabetes mellitus without complication, without long-term current use of insulin ([facility]) Type 2 diabetes mellitus with other specified complication, without long-term current use of insulin ([facility]) Secondary hypertension Other secondary hypertension, unspecified [facility]* Diagnosis Type 2 diabetes mellitus with other specified complication, without long-term current use of insulin ([facility])- Primary Obesity, morbid, BMI 50 or higher ([facility]) PAULA (obstructive sleep apnea) Obstructive sleep apnea (adult) (pediatric) documented in this encounter [facility]* Diagnosis Moderate persistent reactive airway disease with acute exacerbation- Primary PAULA (obstructive sleep apnea) Obstructive sleep apnea (adult) (pediatric) documented [facility] encounter [facility]* Diagnosis Moderate persistent reactive airway disease with acute exacerbation [facility] encounter [facility]* Diagnosis Moderate persistent reactive airway disease with acute exacerbation documented in this encounter [facility] SystemHistory general Narrative - Reported* Type Description Date Medical History Asthma Medical History OSAHS---ACPAP [id number] (Promedi ca in [facility]) Medical History GERD Medical History Obesity Medical History Allergic Rhinitis Medical History Hypertension Medical History Hyperlipidemia Surgical History Cauterized stomach ulcer 12/2009 Surgical History Nerb Surgical History Left lumbar facet T. Felter 02/14 Hospitalization History Pneumonia pt. went into a coma 12/2009 [facility] Other History general Narrative - Reported* Type Description Date Medical History Asthma Medical History OSAHS---ACPAP [id number] (Promedi ca in [facility]) Medical History GERD Medical History Obesity Medical History Allergic Rhinitis Medical History Hypertension Medical History Hyperlipidemia Medical History Covid Surgical History Cauterized stomach ulcer 12/2009 Surgical History Nerb Surgical History Left lumbar facet T. Felter 02/14 Hospitalization History Pneumonia pt. went into a coma 12/2009 Hospitalization History [facility] 11/2021 [facility] Other InstructionsNot on filedocumented in this encounter [facility]ructionsNot on filedocumented in this encounter [facility] SystemInstructionsNot on filedocumented in this encounter [facility]InstructionsNot on filedocumented in this encounter [facility]InstructionsNot on filedocumented in this encounter [facility]InstructionsNot on filedocumented in this encounter [facility]InstructionsNot on filedocumented in this encounter [facility]InstructionsNot on filedocumented in this encounter [facility]InstructionsNot on filedocumented in this encounter [facility]InstructionsNot on filedocumented in this encounter [facility]InstructionsNot on filedocumented in this encounter [facility]InstructionsNot on filedocumented in this encounter [facility] SystemInstructionsNot on filedocumented in this encounter [facility] SystemInstructionsNot on filedocumented in this encounter [facility] SystemInstructionsNot on filedocumented in this encounter [facility] SystemReason for referral (narrative)* Consultation (Routine) - Pending Review Specialty Diagnoses / Procedures Referred By Jerry garrido Referred To Contact Sleep Medicine / Pulmonary Medicine Diagnoses PAULA (obstructive sleep apnea) Moderate persistent reactive airway disease with acute exacerbation Lo Toscano MD [address] [place] [address] Terri Child DO [address] [place] [address] Referral ID Status Reason Start Date Expiration Date Visits Requested Visits Authorized [id number] Pending Review Specialty Services Required 12/18/2023 12/17/2024 1 1 [facility]Reason for referral (narrative)* Consultation (Routine) - Pending Review Specialty Diagnoses / Procedures Referred By Jerry garrido Referred To Contact Orthopedic Surgery Diagnoses Knee buckling, unspecified laterality Lo Toscano MD [address] [facility] [place] [address] Tomas Quintana MD [address] [place] [address] Referral ID Status Reason Start Date Expiration Date Visits Requested Visits Authorized [id number] Pending Review Specialty Services Required 06/18/2024 06/18/2025 1 1 [facility] Summary Purpose Family History Relationship Condition Age at Onset Recorded Date/T vitaly family member Malignant neoplasm of bone Unknown Malignant neoplasm of colon Unknown grandparent Pulmonary emphysema Unknown Cerebrovascular accident (CVA) Unknown Diabetes mellitus Unknown Malignant neoplasm of lung Unknown mother Hypertension Unknown Coronary artery disease Unknown father Coronary artery disease Unknown Asthma Unknown father Asthma Unknown Heart disease Unknown Unknown mother Diabetes mellitus Unknown Hypertension Unknown Advance Directives Advance Directive Response Recorded Date/ Time Advance Directives No September 14, 2017 10:10am Advance Directive Response Recorded Date/ Time Advance Directives No September 14, 2017 9:10am Chief Complaint and Reason for Visit Chief Complaint Exposure to covid, s ore throat Reason for Visit COVID Contact with and (suspected) exposure to covid-19 Chief Complaint Admit Date sore throat, wheezing October 25 12:35pm Cough, congestion December 05, 2024 1 :10pm Reason for Visit Admit Date AOM (acute otitis media) October 25, 2024 12:35pm Asthma, moderate persistent October 12:35pm Reason for Referral Specialty Diagnoses / Procedures Referred By Contac t Referred To Contact Diagnoses Moderate persistent reactive airway disease with acute exacerbation Asthma, unspecified asthma severity, unspecified whether complicated, unspecified whether persistent Procedures Nebulizer Tubing Kit Julissa Macias, MANJIT-SAL [address] [facility], [address] [place] [address] Referral ID Status Reason Start Date Expiration Date V isits Requested Visits Authorized [id number] Pending Review 07/16/2024 07/16/2025 1 1 Specialty Diagnoses / Procedures Referred By Contac t Referred To Contact Diagnoses Chronic midline low back pain without sciatica Lumbar spondylosis Procedures Disability/Handicap Lo Oakes MD [address] [place] [address] Referral ID Status Reason Start Date Expiration Date V isits Requested Visits Authorized [id number] Pending Review 12/20/2023 12/19/2024 1 1 Additional Source Comments (unrecognized sect ion and content) No Status Records FoundNo Status Records FoundNo Status Records FoundNo Status Records FoundNo Status Records Found INFORMATION SOURCE (unrecogn ized section and content) DATE CREATED AUTHOR 07/13/2020 [facility] DATE CREATED AUTHOR AUTHOR'S ORGANIZ ATION 07/03/2021 [facility] DATE CREATED AUTHOR AUTHOR'S ORGANIZ ATION 05/11/2022 [facility] DATE CREATED AUTHOR AUTHOR'S ORGANIZ ATION 12/11/2024 [facility] DATE CREATED AUTHOR AUTHOR'S ORGANIZ ATION 03/18/2025 [facility] Source Comments (unrecognize d section and content) In the event this informatio n is protected by the Federal Confidentiality of Alcohol and Drug Abuse Patient Records regulations: The Federal rules restrict any use of the information to criminally investigate or prosecute any alcohol or drug abuse patient.[facility] REASON FOR VISIT (unrecogniz ed section and content) Reason Comments Med Refill Reason Comments Sleep Apnea New Patient CXR: 3PFT: 07/19/2023 Asthma Specialty Diagnoses / Procedures Referred By Contjanel t Referred To Contact Sleep Medicine / Pulmonary Medicine Diagnoses PAULA (obstructive sleep apnea) Moderate persistent reactive airway disease with acute exacerbation Lo Toscano MD [address] [place] [address] Terri Child DO [address] [place] [address] Referral ID Status Reason Start Date Expiration Date Visits Requested Visits Authorized [id number] Pending Review Specialty Services Required 12/18/2023 12/17/2024 1 1 Reason Onset Date Comments Er Follow-up 12/10/2023 Reason Onset Date Comments Med Refill 06/23/2024 Reason Comments Annual Exam MAW Reason Comments Diabetes Reason Onset Date Comments Medication 04/07/2025 Care Teams (unrecognized sec tion and content) Team Status: Active Member Role Status Dates NON STAFF Primary Care Provider Active Team Status: Inactive Member Role Status Dates NON STAFF Primary Care Provider Active Start: July 16, 2024 End: July 16, 2024 Laura AMBRIZ APRN Attending Provider Active Start: July 16, 2024 End: July 16, 2024 Fiberglass Technician Relationship Specialty Start Date End Date Lo Toscano MD [address] [place] [address] PCP - General Internal Medicine 10/13/22 Team Status: Active Member Role Status Dates Lo Toscano MD Primary Care Provider Active Team Status: Inactive Member Role Status Dates Jocelyn Nathan APRN COMPUTER HARDWARE TECHNICIAN-C Attending Provider Active Start: October End: October 25, 2024 Lo Toscano MD Primary Care Provider Active S tart: October 25, 2024 End: October 25, 2024 Team Status: Inactive Member Role Status Dates Lo Toscano MD Primary Care Provider Active S tart: December 05, 2024 End: December 05, 2024 Laura Phillips APRN Attending Provider Active Start: December 05, 2024 End: December 05, 2024 Fiberglass Technician Relationship Specialty Start Date End Date Lo Toscano MD [address], [place] [address] PCP - General Internal Medicine 10/13/22 Fiberglass Technician Relationship Specialty Start Date End Date Lo Toscano MD [address], [place] [address] PCP - General Internal Medicine 10/13/22 Fiberglass Technician Relationship Specialty Start Date End Date Lo Toscano MD [address], [place] [address] PCP - General Internal Medicine 10/13/22 Fiberglass Technician Relationship Specialty Start Date End Date Lo Toscano MD [address], [place] [address] PCP - General Internal Medicine 10/13/22 Fiberglass Technician Relationship Specialty Start Date End Date Lo Toscano MD [address], [place] [address] PCP - General Internal Medicine 10/13/22 Fiberglass Technician Relationship Specialty Start Date End Date Lo Toscano MD [address], [place] [address] PCP - General Internal Medicine 10/13/22 Fiberglass Technician Relationship Specialty Start Date End Date Lo Toscano MD [address], [place] [address] PCP - General Internal Medicine 10/13/22 Fiberglass Technician Relationship Specialty Start Date End Date Lo Toscano MD [address], [place] [address] PCP - General Internal Medicine 10/13/22 Fiberglass Technician Relationship Specialty Start Date End Date Lo Toscano MD [address], [place] [address] PCP - General Internal Medicine 10/13/22 Fiberglass Technician Relationship Specialty Start Date End Date Lo Toscano MD [address], [place] [address] PCP - General Internal Medicine 10/13/22 Fiberglass Technician Relationship Specialty Start Date End Date Lo Toscano MD [address], [place] [address] PCP - General Internal Medicine 10/13/22 Fiberglass Technician Relationship Specialty Start Date End Date Lo Toscano MD [address], [place] [address] PCP - General Internal Medicine 10/13/22 Fiberglass Technician Relationship Specialty Start Date End Date Lo Toscano MD [address], [place] [address] PCP - General Internal Medicine 10/13/22 Fiberglass Technician Relationship Specialty Start Date End Date Lo Toscano MD [address] [place] [address] PCP - General Internal Medicine 10/13/22 Fiberglass Technician Relationship Specialty Start Date End Date Lo Toscano MD [address] [place] [address] PCP - General Internal Medicine 10/13/22 Fiberglass Technician Relationship Specialty Start Date End Date Lo Toscano MD [address] [place] [address] PCP - General Internal Medicine 10/13/22 Fiberglass Technician Relationship Specialty Start Date End Date Lo Toscano MD [address] [place] [address] PCP - General Internal Medicine 10/13/22 Goals (unrecognized section and content) Goals may be documented in a n alternate section FOR RECORDS PERTAINING TO PATIENTS WHO ARE OR HAVE BEEN ENROLLED IN A CHEMICAL DEPENDENCY/SUBSTANCEABUSE PROGRAM, SOME INFORMATION MAY BE OMITTED. This clinical summary was aggregated from multiple sources. Caution should be exercised in using it in the provision of clinical care. This summary normalizes information from multiple sources, and as a consequence, information in this document may materially change the coding, format and clinical context of patient data. In addition, data may be omitted in some cases. CLINICAL DECISIONS SHOULD BE BASED ON THE PRIMARY CLINICAL RECORDS. [employer] [facility]. provides no warranty or guarantee of the accuracy or completeness of information in this document.
[2025-05-04 20:36] VITALS: BP 154/87; PULSE 94; TEMP 36.7; O2SAT 98; BMI 53.3
--- NOTE | 2025-05-04 23:06 | ED_ITS ---
HPI HPI - General Adult General Chief complaint: Extremity Injury, Lower Stated complaint: BACK PAIN HIP PAIN Time Seen by Provider: 05/04/25 22:59 Source: patient Mode of arrival: walk-in Limitations: no limitations History of Present Illness HPI narrative: male with BMI 53. Diabetic. has chronic numbness left thigh and past history of compression fx lumbar spine. States today used a diving board and jumped into the pool. States the lower 1/2 of his body was tingling. Has improved but still has tingling of both lower extremites from his back to his knees. No weakness of his legs but uncomfortable when walking. No bowel or bladder complaints. no incontinence Related Data Home Medications ?Medication ?Instructions ?Recorded ?Confirmed albuterol sulfate 90 mcg/actuation inhalation 05/04/25 aerosol inhaler atorvastatin 40 mg tablet mg 05/04/25 fluticasone 500 mcg-salmeterol 50 inhalation 05/04/25 mcg/dose blistr powdr for inhalation ipratropium 0.5 mg-albuterol 3 mg ml inhalation (2.5 mg base)/3 mL nebulization soln lisinopril 20 mg tablet mg 05/04/25 oseltamivir 75 mg capsule mg 05/04/25 semaglutide 1 mg/dose (4 mg/3 mL) mg subcut 05/04/25 subcutaneous pen injector (Ozempic) sitagliptin phosphate 50 mg tablet mg 05/04/25 (Januvia) topiramate 50 mg tablet mg 05/04/25 triamcinolone acetonide 0.1 % applic topical 05/04/25 topical cream Previous Rx's ?Medication ?Instructions ?Recorded ibuprofen 600 mg tablet 600 mg PO TID PRN pain #30 t abs 11/30/24 Allergies Allergy/AdvReac Type Severity Reaction Status Date / Time amoxicillin Allergy Severe Hives Verified 05/04/25 20:29 clindamycin Allergy Severe resp Verified 05/04/25 20:29 failure Opioid HPI Opioid Management Most Recent Opioid Data: Last Pain Scale 8 05/04/25, 22:53 Review of Systems ROS Status of ROS 10 or more systems reviewed and unremark able except as noted in history and below PFSH PFSH Social History Little interest or pleasure in doing things: not at all Feeling down, depressed, or hopeless: not at all Exam Constitutional Vital Signs, click to edit/add: Last Vital Signs Temp 98.1 F 05/04/25 20:36 Pulse 94 H 05/04/25 20:36 Resp 14 05/05/25 01:37 BP 145/78 H 05/05/25 01:37 Pulse Ox 98 05/05/25 01:37 O2 Del Method Room Air 05/05/25 01:37 Common normals: no apparent distress, oriented x3, healthy appearing, alert and well nourished [facility] Common normals: normocephalic and head/scalp atraumatic Respiratory Common normals: normal respiratory effort, no retractions, no use of accessory muscles and clear to auscultation bilaterally Cardio Common normals: regular rate, regular rhythm, S1 normal heart sound and S2 normal heart sound Back & Pelvis Other: mild tenderness nonspecific L- spine. Extremity Common normals: normal to inspection and full ROM Neuro Common normals: oriented x3, CN's II-XII intact bilaterally, moves all extremities and no focal motor deficits Other: normal gait. No focal weakness lower extremities Psych Appearance: grossly normal Course Vital Signs Vital signs: Vital Signs Temperature 98.1 F 05/04/25 20:36 Pulse Rate 94 H 05/04/25 20:36 Respiratory Rate 20 05/04/25 20:36 Blood Pressure 154/87 H 05/04/25 20:36 Pulse Oximetry 98 05/04/25 20:36 Oxygen Delivery Method Room Air 05/04/25 20:36 Temperature 98.1 F 05/04/25 20:36 Pulse Rate 94 H 05/04/25 20:36 Respiratory Rate 14 05/05/25 01:37 Blood Pressure 145/78 H 05/05/25 01:37 Pulse Oximetry 98 05/05/25 01:37 Oxygen Delivery Method Room Air 05/05/25 01:37 Medical Decision Making MDM Narrative Medical decision making narrative: patient has chronic back pain. Describes past nerve ablation procedures of his back. Last treatment about 18 months ago. Has chronic numbness of his right thigh. States he dove into the pool using a diving board and experienced acute tingling sensation of the lower half of his body. no weakness of his lower extremities. Able to walk but uncomfortable. He is morbidly obese with BMI 53. He is able to get off the stretcher earily and walk. No loss of control of bowel or bladder. Mild tenderness of the L-spine. CT with vertebral body hemangiomas involving L2L4 and L5. diffuse endplate osteophytosis and spurring and facet arthropathy L2-3 Broad base disc bulge L3-4 and Broad based disc bulge L4-5 with osteophyte complex. Question of mod-severe canal narrowing patient treated with magnesium and solumedrol. The tingling of his lower extremities resolved. Still has some pain but did not want to wait at this time as he was wanting to get home. Sitting on the stretche with one of his legs crossed. Able to get up easily and ambulate. Discharged and advised to follow up with his pain specialist Lab Data Labs: Lab Results 05/04/25 05/04/25 Range/Units 23:34 23:49 WBC 11.4 H (4.0-11.0) 10^3/uL RBC 4.65 L (4.70-6.10) 10^6/uL Hgb 14.2 (14.0-18.0) g/dL Hct 39.5 L (42.0-54.0) % MCV 84.9 (80.0-94.0) fL MCH 30.5 (25.9-34.0) pg MCHC 35.9 H (29.9-35.2) g/dL RDW 14.2 (11.0-15.0) % Plt Count 247 (150-450) 10^3/uL MPV 10.9 (9.5-13.5) fL Neut % (Auto) 62.7 (43.0-75.0) % Lymph % (Auto) 23.6 (20.5-60.0) % [place] % (Auto) 9.8 (1.7-12.0) % Eos % (Auto) 2.1 (0.9-7.0) % Baso % (Auto) 1.3 (0.2-2.0) % Neut # (Auto) 7.1 H (1.4-6.5) 10^3/uL Lymph # (Auto) 2.7 (1.2-3.8) 10^3/uL Flagler # (Auto) 1.1 H (0.3-0.8) 10^3/uL Eos # (Auto) 0.2 (0.0-0.7) 10^3/uL Baso # (Auto) 0.2 H (0.0-0.1) 10^3/uL Abs Immat Gran (auto) 0.06 H (0.00-0.03) 10^3/uL Imm/Tot Granulo (auto) 0.5 (0.0-0.5) % ESR 20 H (<=15) mm/hr Sodium 143 (136-145) mmol/L Potassium 3.8 (3.5-5.1) mmol/L Chloride 108 H (98-107) mmol/L Carbon Dioxide 25.3 (21.0-32.0) mmol/L Anion Gap 13.5 BUN 17.0 (7.0-18.0) mg/dL Creatinine 0.80 (0.70-1.30) mg/dL Est GFR ( Amer) >60 (>=60 mL/min/1.73m^2) Est GFR (Non-Af Amer) >60 (>=60 mL/min/1.73m^2) BUN/Creatinine Ratio 21.2 Glucose 153 H (74-106) mg/dL Calcium 9.3 (8.5-10.1) mg/dL C-Reactive Protein 0.55 H (<=0.50) mg/dL Discharge Plan Discharge Chief Complaint: Extremity Injury, Lower Clinical Impression: Paresthesia of both lower extremities Patient Disposition: Home, Self-Care Prescriptions / Home Meds: No Action ibuprofen 600 mg tablet 600 mg PO TID PRN (Reason: pain) Qty: 30 0RF atorvastatin 40 mg tablet ipratropium-albuterol 0.5 mg-3 mg(2.5 mg base)/3 mL solution for nebulization INHALATION lisinopril 20 mg tablet triamcinolone acetonide 0.1 % cream TOPICAL oseltamivir 75 mg capsule fluticasone propion-salmeterol 500-50 mcg/dose blister with device INHALATION albuterol sulfate 90 mcg/actuation HFA aerosol inhaler INHALATION topiramate 50 mg tablet Januvia 50 mg tablet Ozempic 1 mg/dose (4 mg/3 mL) pen injector SUBCUT Print Language: Citizen Of [place] Instructions: Paresthesia (ED) Additional Instructions: follow up with your doctor in next couple of days for recheck Referrals: Lori Lyles ND [Primary Care Provider] - 1 week Discharge Date/Time: 05/05/25 01:40
--- NOTE | 2025-05-04 23:09 | CT_ITS ---
[address] [address] Patient Name: ORACIO MARIE MRN: [id number] date: 1980 Sex: M Assigned Patient Location: ER Current Patient Location: .[facility] Accession/Order Number: [id number] Exam Date: 05/04/2025 23:58 Report Date: 05/05/2025 00:17 At the request of: PIA HAYES MD Procedure: CT lumbar spine wo con CT lumbar spine performed without contrast INDICATION: Bilateral leg numbness COMPARISON: None TECHNIQUE: CT was performed with one or more of the following dose reduction techniques: Automated exposure control, adjustment of the mA and/or kV according to patient size, or use of iterative reconstruction technique. FINDINGS: Straightening of the normal lumbar lordosis may relate to positioning and/or muscle spasm. Lumbar vertebral heights are preserved. Vertebral body hemangiomas involving L2 L4 and L5. Superior plate Schmorl's node L2 and L3 and involving inferior plate of L3. Evaluation of the disc, central canal and foramina regions challenge by body habitus and CT technique. No fracture malalignment. [id number] spurring both sacroiliac joints. L1-2: Minimal endplate spurring causing mild foraminal narrowing. L2-3: Diffuse endplate osteophytosis and spurring and facet arthropathy identified causing at least moderate foraminal encroachment. Otherwise moderate central stenosis identified. L3-4: Broad-based disc bulge with moderate right and [id number] left-sided foraminal narrowing. Moderate canal narrowing. L4-5: Broad-based disc bulge with diffuse endplate disc osteophyte complex formation. Question moderate severe canal narrowing. Bilateral facet arthropathy right greater than left. L5-S1: Mild canal and foraminal narrowing. Moderate facet arthropathy. CT/CT lumbar spine wo con IMPRESSION: Negative acute fracture or traumatic malalignment. Evaluation of the canal neural foraminal regions degraded by quantum mottle and technique. Multilevel canal and foraminal encroachment is noted appearing most pronounced at L4-5 Impression dictated by: Chacho Ruano M.D. 05/05/2025 12:17 AM Dictation Location: [employer] Electronically authenticated by: [id number] Y Date: 05/05/2025 00:17
[2025-05-04] MEDS: MAGNESIUM SULFATE IN WATER 2 GM/50 ML PREMIX IV (23:33)
[2025-05-04 23:41] LABS: Basophils Absolute Auto 0.2 10^3/uL (0.0-0.1); Basophils Percent Auto 1.3 % (0.2-2.0); Eosinophils Absolute Auto 0.2 10^3/uL (0.0-0.7); Eosinophils Percent Auto 2.1 % (0.9-7.0); Hematocrit 39.5 % (42.0-54.0); Hemoglobin 14.2 g/dL (14.0-18.0); Immature Granulocytes Abs Auto 0.06 10^3/uL (0.00-0.03); Immature Granulocytes Pct Auto 0.5 % (0.0-0.5); Lymphocytes Absolute Auto 2.7 10^3/uL (1.2-3.8); Lymphocytes Percent Auto 23.6 % (20.5-60.0); Mean Corpuscular HGB Conc 35.9 g/dL (29.9-35.2); Mean Corpuscular Hemoglobin 30.5 pg (25.9-34.0); Mean Corpuscular Volume 84.9 fL (80.0-94.0); Mean Platelet Volume 10.9 fL (9.5-13.5); Monocytes Absolute Auto 1.1 10^3/uL (0.3-0.8); Monocytes Percent Auto 9.8 % (1.7-12.0); Neutrophils Absolute Auto 7.1 10^3/uL (1.4-6.5); Neutrophils Percent Auto 62.7 % (43.0-75.0); Platelet Count 247 10^3/uL (150-450); Red Blood Count 4.65 10^6/uL (4.70-6.10); Red Cell Distribution Width 14.2 % (11.0-15.0); White Blood Count 11.4 10^3/uL (4.0-11.0)
[2025-05-04 23:53] LABS: Anion Gap 13.5; BUN Creatinine Ratio 21.2; Calcium 9.3 mg/dL (8.5-10.1); Carbon Dioxide 25.3 mmol/L (21.0-32.0); Chloride 108 mmol/L (98-107); Estimated GFR (African America >60 (>=60 mL/min/1.73m^2); Estimated GFR (Non-African Ame >60 (>=60 mL/min/1.73m^2); Glucose 153 mg/dL (74-106); Potassium 3.8 mmol/L (3.5-5.1); Sodium 143 mmol/L (136-145)
[2025-05-05] MEDS: METHYLPREDNISOLONE SOD SUCC PF 125 MG/2 ML VIAL IVP (00:24)
[2025-05-05 00:28] LABS: Erythrocyte Sedimentation Rate 20 mm/hr (<=15)
[2025-05-05 00:35] LABS: C Reactive Protein 0.55 mg/dL (<=0.50)
[2025-05-05 01:37] VITALS: BP 145/78; O2SAT 98
== END 2025-05-05 01:40 | disposition home or self-care (01) ==
PROVIDERS: Emergency Provider Internal Medicine; PCP Student in an Organized Health Care Education/Training Program
DX: R20.2 Paresthesia of skin (principal); Z87.311 Personal history of (healed) other pathological fracture; E11.9 Type 2 diabetes mellitus without complications; Z79.85 Long-term (current) use of injectable non-insulin antidiabetic drugs; E66.01 Morbid (severe) obesity due to excess calories; Z68.43 Body mass index [BMI] 50.0-59.9, adult
CPT/HCPCS: 36415; 72131; 80048; 85025; 85652; 86140; 96374; 96375; 99285; J2919; J3475